=== PATIENT | female | born 1950 | race Caucasian/White ===

== ENCOUNTER 2017-09-18 20:07 | Inpatient (IN) | payer MEDICARE, OTHER ==
--- NOTE | 2017-09-18 20:21 | ED Physician Chart ---
ED Chief Complaint/HPI - Patient Information Date Seen:: 09/18/17 Time Seen:: 20:21 Chief Complaint:: Increased agitation History of Present Illness:: 67 yo female was brought from SNF to ER for evaluation of increased agitation. ED Review of Systems - Review of Systems General/Constitutional: No fever, Weakness Skin: No bruising Eyes: No pain ENT: No nasal drainage Neck: No neck pain Cardio Vascular: No chest pain, edema Pulmonary: No SOB, Sputum GI: No nausea, No vomiting Musculoskeletal: No bone or joint pain Psychiatric: Prior psych history Neurological: Weakness ED Past Medical History - Past Medical History Past Medical History: Asthma/COPD, Dyslipidemia, Thyroid disorder, Other ( ENCEPHALOPATHY, VERTIGO, STROKE) Social History: Smoker, Alcohol, No Drug Use Psychiatricy History: Bipolar Family Medical History - Family Member Mother History Unknown: Yes ED Physical Exam - Physical Examination General/Constitutional: Awake Head: Atraumatic Eyes: PERRL Skin: No ecchymosis ENMT: Nasal exam nl Neck: No nuchal rigidity Other Respiratory comments:: diminished lung sound Cardio Vascular: RRR, No murmur, gallop, rubs, NL S1 S2 GI: No tenderness/rebounding/guarding Extremities: Full ROM Other Extremities comments:: 2+ edema BLE Neuro/Psych: Alert/oriented (x 3) ED Labs/Radiology/EKG Results - Lab Results Results: Lab - Result Diagrams 09/18/17 20:50 09/18/17 20:50 - Radiology Results Results: CXR: increased interstitial markings, cardiomegaly - EKG Interpretations EKG Time:: 20:35 Rate & Rhythm: 86 bpm, sinus rhythm [place]: Normal axis Intervals: Normal intervals ED Assessment - Assessment General Assessment: Bronchitis COPD Hypertension CHF Psychosis Assessment/Comments:: CBC, CMP, BNP, Trop I UA, urine drug screen CXR, EKG Cleared for geropsych admission ED Septic Shock - . Is Septic Shock (SBP<90, OR Lactate>4 mmol\L) present?: No ED Reassessment (Disposition) - Reassessment Reassessment Condition:: Unchanged - Patient Disposition Discharge/Transfer:: Geropsych unit w/in this hosp Admitting Medical Physician:: Izaiah Navarrete Admitting Psych Physician:: Ravin Wayne ED Discharge Plan - Patient Disposition Admit/Discharge/Transfer: Other Care w/in this hosp
[2017-09-18 20:59] LABS: % BASOPHILS 0.3 % (0.0-2.0); % EOSINOPHILS 1.6 % (0.0-5.0); % LYMPHOCYTES 9.5 % (20.0-50.0); % MONOCYTES 9.3 % (2.0-10.0); % NEUTROPHILS 79.3 % (40.0-80.0); EOSINOPHILE ABSOLUTE 0.1 Th/cmm (0.1-0.4); HEMATOCRIT 38.8 % (41.0-60); HEMOGLOBIN 13.2 gm/dL (12-16); LYMPHOCYTE ABSOLUTE 0.7 Th/cmm (1.5-3.0); MEAN CORPUSCULAR HEMOGLOBIN 30.9 pg (27.0-31.0); MEAN CORPUSCULAR HGB CONC 33.9 pg (28.0-36.0); MEAN PLATELET VOLUME 7.5 fl; MONOCYTE ABSOLUTE 0.7 Th/cmm (0.3-1.0); NEUTROPHILE ABSOLUTE 6.1 Th/cmm (1.8-8.0); PLATELET COUNT 125 Th/cmm (150-400); RED BLOOD COUNT 4.26 Mil/cmm (3.80-5.20); RED CELL DISTRIBUTION WIDTH 16.5 % (11.5-20.0); WHITE BLOOD COUNT 7.6 Th/cmm (4.8-10.8)
[2017-09-18 21:13] LABS: ALB/GLOB RATIO 1.1 (1.0-1.8); ALBUMIN 2.7 gm/dL (3.7-5.3); ALKALINE PHOSPHATASE 123 U/L (34-104); BILIRUBIN,TOTAL 0.7 mg/dL (0.3-1.0); BUN - UREA NITROGEN 14 mg/dL (7-25); CALCIUM SERUM 8.4 mg/dL (8.6-10.3); CARBON DIOXIDE 36.5 mEq/L (21.0-31.0); CHLORIDE 98 mEq/L (98-107); GFR AFRICAN-AMERICAN > 60.0 ml/min (>90); GFR NON AFRICAN-AMERICAN 58.8 ml/min; GLUCOSE 174 mg/dL (70-105); POTASSIUM SERUM 3.5 mEq/L (3.5-5.1); SGOT 28 U/L (13-39); SGPT/ALT 26 U/L (7-52); SODIUM SERUM 140 mEq/L (136-145); TOTAL PROTEIN,SERUM 5.1 gm/dL (6.0-8.3)
[2017-09-18 22:53] VITALS: BP 147/70
[2017-09-19] MEDS ORDERED: Non-Formulary Item 1 EA (Gabapentin [Neurontin] 600 MG) PO SCH (05:00)
[2017-09-19] MEDS: Levothyroxine 0.05 Mg Tab PO SCH (06:56)
--- NOTE | 2017-09-19 07:54 | Diagnostic Imaging Report ---
CHEST X-RAY: AP view INDICATION: Shortness of breath COMPARISON: None FINDINGS: Patient is rotated. Increased interstitial lung markings are noted. No focal consolidation or effusions. Cardiomegaly is noted with atherosclerosis. Degenerative changes of the spine are noted. IMPRESSION: Increased interstitial lung markings possibly representing a mild degree of pulmonary vascular congestion. Note, faint developing infiltrate of the upper lung zones cannot be excluded. Clinical correlation recommended. Cardiomegaly and atherosclerotic vascular disease.
[2017-09-19] MEDS ORDERED: Non-Formulary Item 1 EA (Lamotrigine [Lamotrigine] 200 MG) PO SCH (09:00)
[2017-09-19] MEDS ORDERED: BUSPIRONE HCL 20 MG PO SCH (09:00)
[2017-09-19] MEDS ORDERED: PREDNISONE 15 MG PO SCH (09:00)
[2017-09-19] MEDS ORDERED: Probiotic Screen MC PRN (10:22)
--- NOTE | 2017-09-19 15:25 | History & Physical ---
ADMIT DATE: 09/19/2017 CHIEF COMPLAINT: Admitted to inpatient psych. HISTORY OF PRESENT ILLNESS: This is a 67-year-old patient female with history of COPD, stroke, hypertension, hypothyroidism, recent diagnosis of bronchitis on doxycycline as well as Keflex, multiple bruises, under the service of Dr. Wayne. The patient is a poor historian. Denies chest pain, shortness of breath. PAST MEDICAL HISTORY: As mentioned in history of present illness. PAST SURGICAL HISTORY: Denies. ALLERGIES: AMOXICILLIN. MEDICATIONS: Prednisone, BuSpar, Keflex, Celexa, ____, Cymbalta, Neurontin, Lamictal, Synthroid, Cozaar, Seroquel. FAMILY HISTORY: Noncontributory. SOCIAL HISTORY: The patient is an avid smoker, drinks on occasion. No intravenous drug use. 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 REVIEW OF SYSTEMS: GENERAL: The patient complains not feeling well. HEENT: No blurred vision or eye pain. LUNGS: Asthma and the patient with chronic obstructive pulmonary disease. HEART: The patient has history of coronary artery disease. ABDOMEN: No nausea, vomiting, pain. GENITOURINARY: The patient denies increased frequency or dysuria. NEUROLOGIC: The patient with history of TIA, stroke. PSYCHIATRIC: As stated above. PHYSICAL EXAMINATION: VITAL SIGNS: Blood pressure 130/73, respiration 18, pulse 85, temperature 98.7. GENERAL: Elderly female, appears chronically ill, mildly obese. NECK: Supple. No mass. LUNGS: Equal breath sounds, few rhonchi. HEART: Regular rate and rhythm. Systolic ejection murmur. ABDOMEN: Soft, globular, positive bowel sounds. EXTREMITIES: Positive excoriation. NEUROLOGIC: Limited. LABORATORY DATA: WBC 7.6, hemoglobin 13, platelets 125. Sodium 140, potassium 3.5, BUN 44, creatinine 1.0, glucose 174, alkaline phosphatase 123, albumin 2.7. ASSESSMENT AND PLAN: 1. Chronic obstructive pulmonary disease. 2. History of bronchitis. 3. History of stroke. 4. Hypertension. 5. Hypothyroidism. 6. Right hand abrasion. 7. Bilateral upper extremity ecchymosis. 8. Hyperglycemia. 9. Low albumin. 10. Obesity. PLAN: We will continue the patient on oxygen and bronchodilator treatment. We will check the patient's A1c. We will check the PT, PTT. We will refer the patient to Hematology. Continue IV antibiotic. Continue oxygen and bronchodilator treatment. Continue current care. Continue to follow the patient closely. JOB# [id number]
[2017-09-19] MEDS: Albuterol Nebulizer 2.5mg/3mL HHN SCH ×2 (15:26→19:22)
[2017-09-19] MEDS: Ipratropium Neb 0.5 mg/2.5 mL UD IH SCH ×2 (15:26→19:22)
--- NOTE | 2017-09-19 18:46 | Consultation ---
DATE OF CONSULTATION: 09/19/2017 HEMATOLOGY/ONCOLOGY CONSULTATION REFERRING BY: Izaiah Navarrete D.O. REASON FOR CONSULTATION: Bruising on the arms. HISTORY OF PRESENT ILLNESS: The patient is a 67-year-old female who is [facility] and found to have bruising on both of her forearms, more on the left than the right, therefore I was asked to evaluate. PAST MEDICAL HISTORY: COPD, hypertension, hypothyroidism. MEDICATIONS: Reviewed. They do not include anticoagulation or nonsteroidal or aspirin. SOCIAL HISTORY: Smoking history. FAMILY HISTORY: Noncontributory. PHYSICAL EXAMINATION: GENERAL: She is awake, alert, oriented, pleasant. VITAL SIGNS: Stable. HEENT: Atraumatic. No mucosal lesions or bleeding. NECK: No lymphadenopathy. CHEST: Good air entry. HEART: Regular rhythm. ABDOMEN: Soft. EXTREMITIES: Ecchymosis on both forearms more on the left than the right. No active bleeding. NERVOUS SYSTEM: No focal deficits. LABORATORY DATA: White count 7.6, hemoglobin 13.2, platelets 125, creatinine 1, AST, ALT are normal. Alkaline phosphatase slightly elevated. Albumin 2.7. ASSESSMENT: Ecchymosis on both forearms and no ecchymosis on the other parts of the body. This is most consistent with traumatic ecchymosis. I will follow the coagulation panel including PT, PTT and fibrinogen. I will also obtain platelet functions to evaluate if the patient is having any platelet dysfunction increasing her risk for bleeding. The patient stated she never had a similar problem in the past and she did not have any history of spontaneous bleeding in the past. Thank you, Dr. Navarrete for the opportunity to participate in the care of this interesting case. JOB# [id number]
[2017-09-19 19:54] LABS: A1C % 5.8 % (4.0-6.0)
--- NOTE | 2017-09-20 00:22 | Psychosocial Evaluation ---
DATE OF SERVICE: 09/18/2017 IDENTIFYING DATA: The patient is a 67-year-old male, resident of [facility]. Information obtained directly interviewing the patient as well as reviewing the admission papers. JUSTIFICATION FOR HOSPITALIZATION: The patient is admitted here on a voluntary basis in view of her acute agitation. CHIEF COMPLAINT: "I don't know why they have to bring me in here." HISTORY OF PRESENT ILLNESS: This is the first psychiatric hospitalization to [facility] for this patient, who is reported to have been very aggressive. The patient denies a history of multiple medical problems and the patient is reported to have been screaming and yelling and she has pain and has to be admitted over here for stabilization. PAST PSYCHIATRIC HISTORY: Details are not known. MEDICAL HISTORY: Physical examination is requested by Dr. Navarrete and is noted to be significant for COPD, stroke, hypertension, and hypothyroidism. SOCIAL HISTORY: The patient is a resident of the [facility]. SUBSTANCE ABUSE HISTORY: None. PHYSICAL OR SEXUAL ABUSE HISTORY: None. LEGAL PROBLEMS: None at this time. 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 MENTAL STATUS EXAMINATION: The patient is a 67-year-old woman looking her stated age, superficially cooperative. Eye contact is fair. Mood is irritable. Affect is constricted. The patient is finding it difficult to give the information, the patient is stating that she cannot feel it out why she has to be in here. Insight and judgment at this time are noted to be impaired. Impulse control seems to be limited. The patient is reported to have been screaming and yelling. Review of the indicate chart indicated the patient has been on 20 mg of citalopram and also on 60 mg twice a day of duloxetine and taken to 100 mg of Seroquel at night time. Even with all the medication, the patient has been having difficult time to cope with. The patient has been getting easily frustrated. The patient is denying any command hallucinations at this time, but mild paranoia is noted. The patient's short and long-term are noted to be intact and the patient has been able to verbalize the concerns. The patient is stating that she has been feeling very tired and the patient is stating that she has been feeling frustrated after coming in here. The patient's coping skills are noted to be poor. The patient is alert and oriented x 3. DIAGNOSTIC IMPRESSION: Bipolar disorder, depressed with anxiety symptoms. PLAN: Continue the patient with the current medications. I encouraged the patient to verbalize the concerns that the Celexa is going to be discontinued and the patient is going to be continued with the duloxetine and Lamictal and followed up with the supportive therapy. ESTIMATED LENGTH OF STAY: 5-6 days. DISCHARGE CRITERIA: When she no longer a threat to self or others and be able to cope up with the stress. JOB# [id number]
[2017-09-20] MEDS: Levothyroxine 0.05 Mg Tab PO SCH (06:30)
[2017-09-20] MEDS: Albuterol Nebulizer 2.5mg/3mL HHN SCH ×4 (06:53→19:13)
[2017-09-20] MEDS: Ipratropium Neb 0.5 mg/2.5 mL UD IH SCH ×4 (06:53→19:13)
[2017-09-20 11:10] LABS: INR 1.09 (0.5-1.4); PROTHROMBIN TIME (TEST) 11.4 SECONDS (9.5-11.5)
--- NOTE | 2017-09-20 15:38 | General Progress Note ---
Subjective - Review of Systems Service Date: 09/20/17 Objective - Results Result Diagrams: 09/18/17 20:50 09/18/17 20:50 Recent Labs: Laboratory Last Values WBC 7.6 Th/cmm (4.8-10.8) 09/18/17 20:50 RBC 4.26 Mil/cmm (3.80-5.20) 09/18/17 20:50 Hgb 13.2 gm/dL (12-16) 09/18/17 20:50 Hct 38.8 % (41.0-60) L 09/18/17 20:50 MCV 91.0 fl (81-100) 09/18/17 20:50 MCH 30.9 pg (27.0-31.0) 09/18/17 20:50 MCHC Differential 33.9 pg (28.0-36.0) 09/18/17 20:50 RDW 16.5 % (11.5-20.0) 09/18/17 20:50 Plt Count 125 Th/cmm (150-400) L 09/18/17 20:50 MPV 7.5 fl 09/18/17 20:50 Neutrophils % 79.3 % (40.0-80.0) 09/18/17 20:50 Lymphocytes % 9.5 % (20.0-50.0) L 09/18/17 20:50 Monocytes % 9.3 % (2.0-10.0) 09/18/17 20:50 Eosinophils % 1.6 % (0.0-5.0) 09/18/17 20:50 Basophils % 0.3 % (0.0-2.0) 09/18/17 20:50 PT 11.4 SECONDS (9.5-11.5) 09/20/17 09:10 INR 1.09 (0.5-1.4) 09/20/17 09:10 PTT (Actin FS) 22.5 SECONDS (26.0-38.0) L 09/20/17 09:10 Fibrinogen 215.0 mg/dL (200.0-400.0) 09/20/17 09:10 Plt Function Studies SEE COMMENT 09/20/17 09:10 Sodium 140 mEq/L (136-145) 09/18/17 20:50 Potassium 3.5 mEq/L (3.5-5.1) 09/18/17 20:50 Chloride 98 mEq/L (98-107) 09/18/17 20:50 Carbon Dioxide 36.5 mEq/L (21.0-31.0) H 09/18/17 20:50 Anion Gap 9.0 (7.0-16.0) 09/18/17 20:50 BUN 14 mg/dL (7-25) 09/18/17 20:50 Creatinine 1.0 mg/dL (0.6-1.2) 09/18/17 20:50 Est GFR ( Amer) > 60.0 ml/min (>90) 09/18/17 20:50 Est GFR (Non-Af Amer) 58.8 ml/min 09/18/17 20:50 BUN/Creatinine Ratio 14.0 09/18/17 20:50 Glucose 174 mg/dL (70-105) H 09/18/17 20:50 Hemoglobin A1c % 5.8 % (4.0-6.0) 09/18/17 20:50 Calcium 8.4 mg/dL (8.6-10.3) L 09/18/17 20:50 Magnesium 2.0 mg/dL (1.9-2.7) 09/18/17 20:50 Total Bilirubin 0.7 mg/dL (0.3-1.0) 09/18/17 20:50 AST 28 U/L (13-39) 09/18/17 20:50 ALT 26 U/L (7-52) 09/18/17 20:50 Alkaline Phosphatase 123 U/L (34-104) H 09/18/17 20:50 Troponin I 0.04 ng/mL (0.01-0.05) 09/18/17 20:50 B-Natriuretic Peptide 31.5 pg/mL (5.0-100.0) 09/18/17 20:50 Total Protein 5.1 gm/dL (6.0-8.3) L 09/18/17 20:50 Albumin 2.7 gm/dL (3.7-5.3) L 09/18/17 20:50 Globulin 2.4 gm/dL 09/18/17 20:50 Albumin/Globulin Ratio 1.1 (1.0-1.8) 09/18/17 20:50 - Physical Exam Vitals and I&O: Vital Signs Temp 96.1 F 09/20/17 14:00 Pulse 88 09/20/17 14:06 Resp 18 09/20/17 14:06 BP 144/71 09/20/17 14:00 Pulse Ox 96 09/20/17 14:06 Active Medications: Current Medications Acetaminophen (Tylenol) 650 mg PO Q4HR PRN PRN Reason: Mild Pain / Temp above 100 Stop: 11/17/17 22:57 Albuterol Sulfate (Albuterol 2.5mg/3ml Neb Ud) 2.5 mg HHN QIDRT [facility] Stop: 11/18/17 14:59 Last Admin: 09/20/17 14:06 Dose: 2.5 mg Buspirone HCl (Buspar) 20 mg PO TID [facility]; Protocol Stop: 11/18/17 08:59 Last Admin: 09/20/17 14:07 Dose: 20 mg Duloxetine HCl (Cymbalta) 60 mg PO BID [facility]; Protocol Stop: 11/18/17 08:59 Last Admin: 09/20/17 09:55 Dose: 60 mg Famotidine (Pepcid) 20 mg PO BID [facility] Stop: 11/18/17 08:59 Last Admin: 09/20/17 09:56 Dose: 20 mg Gabapentin (Neurontin) 600 mg PO Q8H [facility] Stop: 11/18/17 05:59 Last Admin: 09/20/17 14:12 Dose: 600 mg Ipratropium [place] (Atrovent Neb 0.5mg/2.5ml) 0.5 mg IH QIDRT [facility] Stop: 11/18/17 14:59 Last Admin: 09/20/17 14:06 Dose: 0.5 mg Lamotrigine (Lamictal) 200 mg PO BID [facility]; Protocol Stop: 11/18/17 08:59 Last Admin: 09/20/17 09:55 Dose: 200 mg Levofloxacin (Levaquin) 500 mg PO DAILY [facility] Stop: 09/27/17 08:59 Last Admin: 09/20/17 09:56 Dose: 500 mg Levothyroxine Sodium (Synthroid) 0.05 mg PO QDAC [facility] Stop: 11/18/17 07:29 Last Admin: 09/20/17 06:30 Dose: 0.05 mg Lorazepam (Ativan) 0.5 mg PO Q4HR PRN; Protocol PRN Reason: Anxiety Stop: 10/18/17 22:57 Last Admin: 09/20/17 14:08 Dose: 0.5 mg Losartan Potassium (Cozaar) 25 mg PO DAILY [facility] Stop: 11/18/17 08:59 Last Admin: 09/20/17 09:56 Dose: 25 mg Miscellaneous (Probiotic Screen) 1 ea MC PRN PRN PRN Reason: PROTOCOL Stop: 11/18/17 10:21 Prednisone (Deltasone) 15 mg PO DAILY [facility] Stop: 11/18/17 08:59 Last Admin: 09/20/17 09:57 Dose: 15 mg Quetiapine Fumarate (Seroquel) 100 mg PO HS [facility]; Protocol Stop: 11/18/17 20:59 Last Admin: 09/19/17 21:09 Dose: 100 mg Zolpidem Tartrate (Ambien) 5 mg PO HS PRN PRN Reason: Insomnia Stop: 11/17/17 22:57 General: Alert HEENT: Atraumatic Neck: Supple Cardiovascular: Regular rate Lungs: Clear to auscultation Abdomen: Bowel sounds Psych/Mental Status: Other (ecchymoses on both forearms) Assessment/Plan - Assessment Assessment: * Ecchymoses on upper extremeties forearms * Mild thrombocytopenia This is likely traumatic normal coag and plt function follow plt count
--- NOTE | 2017-09-20 15:58 | Internal Medicine Prog Note ---
Internal Medicine Subjective - Subjective Service Date: 09/20/17 Patient seen and examined:: with staff Patient is:: awake Per staff patient has:: tolerating meds Internal Medicine Objective - Results Result Diagrams: 09/18/17 20:50 09/18/17 20:50 Recent Labs: Laboratory Last Values WBC 7.6 Th/cmm (4.8-10.8) 09/18/17 20:50 RBC 4.26 Mil/cmm (3.80-5.20) 09/18/17 20:50 Hgb 13.2 gm/dL (12-16) 09/18/17 20:50 Hct 38.8 % (41.0-60) L 09/18/17 20:50 MCV 91.0 fl (81-100) 09/18/17 20:50 MCH 30.9 pg (27.0-31.0) 09/18/17 20:50 MCHC Differential 33.9 pg (28.0-36.0) 09/18/17 20:50 RDW 16.5 % (11.5-20.0) 09/18/17 20:50 Plt Count 125 Th/cmm (150-400) L 09/18/17 20:50 MPV 7.5 fl 09/18/17 20:50 Neutrophils % 79.3 % (40.0-80.0) 09/18/17 20:50 Lymphocytes % 9.5 % (20.0-50.0) L 09/18/17 20:50 Monocytes % 9.3 % (2.0-10.0) 09/18/17 20:50 Eosinophils % 1.6 % (0.0-5.0) 09/18/17 20:50 Basophils % 0.3 % (0.0-2.0) 09/18/17 20:50 PT 11.4 SECONDS (9.5-11.5) 09/20/17 09:10 INR 1.09 (0.5-1.4) 09/20/17 09:10 PTT (Actin FS) 22.5 SECONDS (26.0-38.0) L 09/20/17 09:10 Fibrinogen 215.0 mg/dL (200.0-400.0) 09/20/17 09:10 Plt Function Studies SEE COMMENT 09/20/17 09:10 Sodium 140 mEq/L (136-145) 09/18/17 20:50 Potassium 3.5 mEq/L (3.5-5.1) 09/18/17 20:50 Chloride 98 mEq/L (98-107) 09/18/17 20:50 Carbon Dioxide 36.5 mEq/L (21.0-31.0) H 09/18/17 20:50 Anion Gap 9.0 (7.0-16.0) 09/18/17 20:50 BUN 14 mg/dL (7-25) 09/18/17 20:50 Creatinine 1.0 mg/dL (0.6-1.2) 09/18/17 20:50 Est GFR ( Amer) > 60.0 ml/min (>90) 09/18/17 20:50 Est GFR (Non-Af Amer) 58.8 ml/min 09/18/17 20:50 BUN/Creatinine Ratio 14.0 09/18/17 20:50 Glucose 174 mg/dL (70-105) H 09/18/17 20:50 Hemoglobin A1c % 5.8 % (4.0-6.0) 09/18/17 20:50 Calcium 8.4 mg/dL (8.6-10.3) L 09/18/17 20:50 Magnesium 2.0 mg/dL (1.9-2.7) 09/18/17 20:50 Total Bilirubin 0.7 mg/dL (0.3-1.0) 09/18/17 20:50 AST 28 U/L (13-39) 09/18/17 20:50 ALT 26 U/L (7-52) 09/18/17 20:50 Alkaline Phosphatase 123 U/L (34-104) H 09/18/17 20:50 Troponin I 0.04 ng/mL (0.01-0.05) 09/18/17 20:50 B-Natriuretic Peptide 31.5 pg/mL (5.0-100.0) 09/18/17 20:50 Total Protein 5.1 gm/dL (6.0-8.3) L 09/18/17 20:50 Albumin 2.7 gm/dL (3.7-5.3) L 09/18/17 20:50 Globulin 2.4 gm/dL 09/18/17 20:50 Albumin/Globulin Ratio 1.1 (1.0-1.8) 09/18/17 20:50 - Physical Exam Vitals and I&O: Vital Signs Temp 96.1 F 09/20/17 14:00 Pulse 88 09/20/17 14:06 Resp 18 09/20/17 14:06 BP 144/71 09/20/17 14:00 Pulse Ox 96 09/20/17 14:06 Active Medications: Current Medications Acetaminophen (Tylenol) 650 mg PO Q4HR PRN PRN Reason: Mild Pain / Temp above 100 Stop: 11/17/17 22:57 Albuterol Sulfate (Albuterol 2.5mg/3ml Neb Ud) 2.5 mg HHN QIDRT [facility] Stop: 11/18/17 14:59 Last Admin: 09/20/17 14:06 Dose: 2.5 mg Buspirone HCl (Buspar) 20 mg PO TID [facility]; Protocol Stop: 11/18/17 08:59 Last Admin: 09/20/17 14:07 Dose: 20 mg Duloxetine HCl (Cymbalta) 60 mg PO BID [facility]; Protocol Stop: 11/18/17 08:59 Last Admin: 09/20/17 09:55 Dose: 60 mg Famotidine (Pepcid) 20 mg PO BID [facility] Stop: 11/18/17 08:59 Last Admin: 09/20/17 09:56 Dose: 20 mg Gabapentin (Neurontin) 600 mg PO Q8H [facility] Stop: 11/18/17 05:59 Last Admin: 09/20/17 14:12 Dose: 600 mg Ipratropium [place] (Atrovent Neb 0.5mg/2.5ml) 0.5 mg IH QIDRT [facility] Stop: 11/18/17 14:59 Last Admin: 09/20/17 14:06 Dose: 0.5 mg Lamotrigine (Lamictal) 200 mg PO BID [facility]; Protocol Stop: 11/18/17 08:59 Last Admin: 09/20/17 09:55 Dose: 200 mg Levofloxacin (Levaquin) 500 mg PO DAILY [facility] Stop: 09/27/17 08:59 Last Admin: 09/20/17 09:56 Dose: 500 mg Levothyroxine Sodium (Synthroid) 0.05 mg PO QDAC [facility] Stop: 11/18/17 07:29 Last Admin: 09/20/17 06:30 Dose: 0.05 mg Lorazepam (Ativan) 0.5 mg PO Q4HR PRN; Protocol PRN Reason: Anxiety Stop: 10/18/17 22:57 Last Admin: 09/20/17 14:08 Dose: 0.5 mg Losartan Potassium (Cozaar) 25 mg PO DAILY [facility] Stop: 11/18/17 08:59 Last Admin: 09/20/17 09:56 Dose: 25 mg Miscellaneous (Probiotic Screen) 1 ea MC PRN PRN PRN Reason: PROTOCOL Stop: 11/18/17 10:21 Prednisone (Deltasone) 15 mg PO DAILY [facility] Stop: 11/18/17 08:59 Last Admin: 09/20/17 09:57 Dose: 15 mg Quetiapine Fumarate (Seroquel) 100 mg PO HS [facility]; Protocol Stop: 11/18/17 20:59 Last Admin: 09/19/17 21:09 Dose: 100 mg Zolpidem Tartrate (Ambien) 5 mg PO HS PRN PRN Reason: Insomnia Stop: 11/17/17 22:57 General: alert HEENT: NC/AT, PERRLA Neck: Supple Lungs: CTAB Cardiovascular: RRR, Normal S1, Normal S2 Abdomen: soft, non-tender, non-distended Neurological: no change Internal Medicine Assmt/Plan - Assessment Assessment: copd htn hypothyroidism right hand abrasion hyperglycemia low albumin obesity - Plan Plan: supplemental oxygen as needed bronchodilators as needed monitor glucose continue current plan of care
--- NOTE | 2017-09-21 03:27 | Progress Notes ---
DATE: 09/20/2017 SUBJECTIVE: Staff was spoken to. The patient is interviewed. Mood is a bit depressed. Affect is constricted. Insight and judgment at this time are noted to be still impaired. Impulse control is noted to be limited. Coping skills are noted to be limited. The patient has been getting easily frustrated. No side effects to the medications are noted, but the patient has been complaining that she is feeling too dizzy at this time and hence the BuSpar is going to be decreased from 20 mg 3 times a day to 20 mg 2 times a day and the patient is going to be followed up with the supportive therapy. ASSESSMENT: The patient is still depressed and is not able to contract for safety and hence I am not ready to discharge the patient to a lower level of care. JOB# [id number]
[2017-09-21] MEDS: Levothyroxine 0.05 Mg Tab PO SCH (06:34)
[2017-09-21] MEDS: Ipratropium Neb 0.5 mg/2.5 mL UD IH SCH ×4 (07:20→18:58)
[2017-09-21] MEDS: Albuterol Nebulizer 2.5mg/3mL HHN SCH ×4 (07:20→18:58)
[2017-09-21 09:05] LABS: % BASOPHILS 0.6 % (0.0-2.0); % LYMPHOCYTES 13.3 % (20.0-50.0); % MONOCYTES 9.7 % (2.0-10.0); % NEUTROPHILS 74.4 % (40.0-80.0); EOSINOPHILE ABSOLUTE 0.1 Th/cmm (0.1-0.4); HEMOGLOBIN 12.8 gm/dL (12-16); LYMPHOCYTE ABSOLUTE 0.8 Th/cmm (1.5-3.0); MEAN CORPUSCULAR HGB CONC 33.7 pg (28.0-36.0); MEAN PLATELET VOLUME 7.5 fl; MONOCYTE ABSOLUTE 0.6 Th/cmm (0.3-1.0); NEUTROPHILE ABSOLUTE 4.7 Th/cmm (1.8-8.0); PLATELET COUNT 135 Th/cmm (150-400); RED BLOOD COUNT 4.13 Mil/cmm (3.80-5.20); RED CELL DISTRIBUTION WIDTH 16.9 % (11.5-20.0); WHITE BLOOD COUNT 6.2 Th/cmm (4.8-10.8)
--- NOTE | 2017-09-21 14:12 | Internal Medicine Prog Note ---
Internal Medicine Subjective - Subjective Service Date: 09/21/17 (patient c/o unable to expectorate phlegm. right lower ext noted with +3 edema) Patient is:: awake Patient Complaints of:: congestion Per staff patient has:: tolerating meds Internal Medicine Objective - Results Result Diagrams: 09/21/17 08:50 09/18/17 20:50 Recent Labs: Laboratory Last Values WBC 6.2 Th/cmm (4.8-10.8) 09/21/17 08:50 RBC 4.13 Mil/cmm (3.80-5.20) 09/21/17 08:50 Hgb 12.8 gm/dL (12-16) 09/21/17 08:50 Hct 38.0 % (41.0-60) L 09/21/17 08:50 MCV 92.0 fl (81-100) 09/21/17 08:50 MCH 31.0 pg (27.0-31.0) 09/21/17 08:50 MCHC Differential 33.7 pg (28.0-36.0) 09/21/17 08:50 RDW 16.9 % (11.5-20.0) 09/21/17 08:50 Plt Count 135 Th/cmm (150-400) L 09/21/17 08:50 MPV 7.5 fl 09/21/17 08:50 Neutrophils % 74.4 % (40.0-80.0) 09/21/17 08:50 Lymphocytes % 13.3 % (20.0-50.0) L 09/21/17 08:50 Monocytes % 9.7 % (2.0-10.0) 09/21/17 08:50 Eosinophils % 2.0 % (0.0-5.0) 09/21/17 08:50 Basophils % 0.6 % (0.0-2.0) 09/21/17 08:50 PT 11.4 SECONDS (9.5-11.5) 09/20/17 09:10 INR 1.09 (0.5-1.4) 09/20/17 09:10 PTT (Actin FS) 22.5 SECONDS (26.0-38.0) L 09/20/17 09:10 Fibrinogen 215.0 mg/dL (200.0-400.0) 09/20/17 09:10 Plt Function Studies SEE COMMENT 09/20/17 09:10 Sodium 140 mEq/L (136-145) 09/18/17 20:50 Potassium 3.5 mEq/L (3.5-5.1) 09/18/17 20:50 Chloride 98 mEq/L (98-107) 09/18/17 20:50 Carbon Dioxide 36.5 mEq/L (21.0-31.0) H 09/18/17 20:50 Anion Gap 9.0 (7.0-16.0) 09/18/17 20:50 BUN 14 mg/dL (7-25) 09/18/17 20:50 Creatinine 1.0 mg/dL (0.6-1.2) 09/18/17 20:50 Est GFR ( Amer) > 60.0 ml/min (>90) 09/18/17 20:50 Est GFR (Non-Af Amer) 58.8 ml/min 09/18/17 20:50 BUN/Creatinine Ratio 14.0 09/18/17 20:50 Glucose 174 mg/dL (70-105) H 09/18/17 20:50 Hemoglobin A1c % 5.8 % (4.0-6.0) 09/18/17 20:50 Calcium 8.4 mg/dL (8.6-10.3) L 09/18/17 20:50 Magnesium 2.0 mg/dL (1.9-2.7) 09/18/17 20:50 Total Bilirubin 0.7 mg/dL (0.3-1.0) 09/18/17 20:50 AST 28 U/L (13-39) 09/18/17 20:50 ALT 26 U/L (7-52) 09/18/17 20:50 Alkaline Phosphatase 123 U/L (34-104) H 09/18/17 20:50 Troponin I 0.04 ng/mL (0.01-0.05) 09/18/17 20:50 B-Natriuretic Peptide 31.5 pg/mL (5.0-100.0) 09/18/17 20:50 Total Protein 5.1 gm/dL (6.0-8.3) L 09/18/17 20:50 Albumin 2.7 gm/dL (3.7-5.3) L 09/18/17 20:50 Globulin 2.4 gm/dL 09/18/17 20:50 Albumin/Globulin Ratio 1.1 (1.0-1.8) 09/18/17 20:50 RPR NONREACTIVE (NONREACTIVE) 09/18/17 20:50 - Physical Exam Vitals and I&O: Vital Signs Temp 96.1 F 09/20/17 14:00 Pulse 90 09/21/17 10:32 Resp 18 09/21/17 10:32 BP 124/60 09/21/17 09:11 Pulse Ox 96 09/21/17 10:32 Intake & Output 09/20/17 09/21/17 09/21/17 18:59 06:59 18:59 Intake Total 1600 Balance 1600 Intake: Oral 1600 Other: # Voids 4 # Bowel Movements 1 Active Medications: Current Medications Acetaminophen (Tylenol) 650 mg PO Q4HR PRN PRN Reason: Mild Pain / Temp above 100 Stop: 11/17/17 22:57 Albuterol Sulfate (Albuterol 2.5mg/3ml Neb Ud) 2.5 mg HHN QIDRT [facility] Stop: 11/18/17 14:59 Last Admin: 09/21/17 10:32 Dose: 2.5 mg Buspirone HCl (Buspar) 20 mg PO BID [facility]; Protocol Stop: 11/20/17 08:59 Last Admin: 09/21/17 09:27 Dose: Not Given Duloxetine HCl (Cymbalta) 60 mg PO BID [facility]; Protocol Stop: 11/18/17 08:59 Last Admin: 09/21/17 09:10 Dose: 60 mg Famotidine (Pepcid) 20 mg PO BID [facility] Stop: 11/18/17 08:59 Last Admin: 09/21/17 09:11 Dose: 20 mg Gabapentin (Neurontin) 600 mg PO Q8H [facility] Stop: 11/18/17 05:59 Last Admin: 09/21/17 06:36 Dose: 600 mg Ipratropium [place] (Atrovent Neb 0.5mg/2.5ml) 0.5 mg IH QIDRT [facility] Stop: 11/18/17 14:59 Last Admin: 09/21/17 10:32 Dose: 0.5 mg Lamotrigine (Lamictal) 200 mg PO BID [facility]; Protocol Stop: 11/18/17 08:59 Last Admin: 09/21/17 09:10 Dose: 200 mg Levofloxacin (Levaquin) 500 mg PO DAILY [facility] Stop: 09/27/17 08:59 Last Admin: 09/21/17 09:11 Dose: 500 mg Levothyroxine Sodium (Synthroid) 0.05 mg PO QDAC [facility] Stop: 11/18/17 07:29 Last Admin: 09/21/17 06:34 Dose: 0.05 mg Lorazepam (Ativan) 0.5 mg PO Q4HR PRN; Protocol PRN Reason: Anxiety Stop: 10/18/17 22:57 Last Admin: 09/21/17 04:08 Dose: 0.5 mg Losartan Potassium (Cozaar) 25 mg PO DAILY [facility] Stop: 11/18/17 08:59 Last Admin: 09/21/17 09:11 Dose: Not Given Miscellaneous (Probiotic Screen) 1 ea MC PRN PRN PRN Reason: PROTOCOL Stop: 11/18/17 10:21 Prednisone (Deltasone) 15 mg PO DAILY [facility] Stop: 11/18/17 08:59 Last Admin: 09/21/17 09:10 Dose: 15 mg Quetiapine Fumarate (Seroquel) 100 mg PO HS [facility]; Protocol Stop: 11/18/17 20:59 Last Admin: 09/20/17 20:41 Dose: 100 mg Zolpidem Tartrate (Ambien) 5 mg PO HS PRN PRN Reason: Insomnia Stop: 11/17/17 22:57 Last Admin: 09/20/17 20:41 Dose: 5 mg General: alert HEENT: NC/AT, PERRLA Neck: Supple Lungs: ronchi Cardiovascular: RRR, Normal S1, Normal S2 Abdomen: soft, non-tender, non-distended Neurological: no change Internal Medicine Assmt/Plan - Assessment Assessment: copd htn hypothyroidism right hand abrasion hyperglycemia low albumin obesity - Plan Plan: will add prednisone lasix x1 po bilateral lower ext doppler chest xray today supplemental oxygen as needed bronchodilators as needed monitor glucose continue current plan of care
--- NOTE | 2017-09-21 14:36 | Diagnostic Imaging Report ---
CHEST X-RAY: AP view INDICATION: Pneumonia COMPARISON: Chest x-ray 09/09/2018 FINDINGS: Bilateral interstitial infiltrates are noted. No effusions. Cardiomegaly is noted atherosclerosis. Degenerative changes of the spine are noted. IMPRESSION: Bilateral interstitial infiltrates. Clinical correlation is recommended Cardiomegaly and atherosclerotic vascular disease.
--- NOTE | 2017-09-21 16:03 | General Progress Note ---
Subjective - Review of Systems Service Date: 09/21/17 Objective - Results Result Diagrams: 09/21/17 08:50 09/18/17 20:50 Recent Labs: Laboratory Last Values WBC 6.2 Th/cmm (4.8-10.8) 09/21/17 08:50 RBC 4.13 Mil/cmm (3.80-5.20) 09/21/17 08:50 Hgb 12.8 gm/dL (12-16) 09/21/17 08:50 Hct 38.0 % (41.0-60) L 09/21/17 08:50 MCV 92.0 fl (81-100) 09/21/17 08:50 MCH 31.0 pg (27.0-31.0) 09/21/17 08:50 MCHC Differential 33.7 pg (28.0-36.0) 09/21/17 08:50 RDW 16.9 % (11.5-20.0) 09/21/17 08:50 Plt Count 135 Th/cmm (150-400) L 09/21/17 08:50 MPV 7.5 fl 09/21/17 08:50 Neutrophils % 74.4 % (40.0-80.0) 09/21/17 08:50 Lymphocytes % 13.3 % (20.0-50.0) L 09/21/17 08:50 Monocytes % 9.7 % (2.0-10.0) 09/21/17 08:50 Eosinophils % 2.0 % (0.0-5.0) 09/21/17 08:50 Basophils % 0.6 % (0.0-2.0) 09/21/17 08:50 PT 11.4 SECONDS (9.5-11.5) 09/20/17 09:10 INR 1.09 (0.5-1.4) 09/20/17 09:10 PTT (Actin FS) 22.5 SECONDS (26.0-38.0) L 09/20/17 09:10 Fibrinogen 215.0 mg/dL (200.0-400.0) 09/20/17 09:10 Plt Function Studies SEE COMMENT 09/20/17 09:10 Sodium 140 mEq/L (136-145) 09/18/17 20:50 Potassium 3.5 mEq/L (3.5-5.1) 09/18/17 20:50 Chloride 98 mEq/L (98-107) 09/18/17 20:50 Carbon Dioxide 36.5 mEq/L (21.0-31.0) H 09/18/17 20:50 Anion Gap 9.0 (7.0-16.0) 09/18/17 20:50 BUN 14 mg/dL (7-25) 09/18/17 20:50 Creatinine 1.0 mg/dL (0.6-1.2) 09/18/17 20:50 Est GFR ( Amer) > 60.0 ml/min (>90) 09/18/17 20:50 Est GFR (Non-Af Amer) 58.8 ml/min 09/18/17 20:50 BUN/Creatinine Ratio 14.0 09/18/17 20:50 Glucose 174 mg/dL (70-105) H 09/18/17 20:50 Hemoglobin A1c % 5.8 % (4.0-6.0) 09/18/17 20:50 Calcium 8.4 mg/dL (8.6-10.3) L 09/18/17 20:50 Magnesium 2.0 mg/dL (1.9-2.7) 09/18/17 20:50 Total Bilirubin 0.7 mg/dL (0.3-1.0) 09/18/17 20:50 AST 28 U/L (13-39) 09/18/17 20:50 ALT 26 U/L (7-52) 09/18/17 20:50 Alkaline Phosphatase 123 U/L (34-104) H 09/18/17 20:50 Troponin I 0.04 ng/mL (0.01-0.05) 09/18/17 20:50 B-Natriuretic Peptide 31.5 pg/mL (5.0-100.0) 09/18/17 20:50 Total Protein 5.1 gm/dL (6.0-8.3) L 09/18/17 20:50 Albumin 2.7 gm/dL (3.7-5.3) L 09/18/17 20:50 Globulin 2.4 gm/dL 09/18/17 20:50 Albumin/Globulin Ratio 1.1 (1.0-1.8) 09/18/17 20:50 RPR NONREACTIVE (NONREACTIVE) 09/18/17 20:50 - Physical Exam Vitals and I&O: Vital Signs Temp 99.0 F 09/21/17 15:24 Pulse 90 09/21/17 15:24 Resp 20 09/21/17 15:24 BP 144/84 09/21/17 15:24 Pulse Ox 96 09/21/17 15:24 Intake & Output 09/20/17 09/21/17 09/21/17 18:59 06:59 18:59 Intake Total 1600 Balance 1600 Intake: Oral 1600 Other: # Voids 4 # Bowel Movements 1 Stool Characteristics Formed Brown Active Medications: Current Medications Acetaminophen (Tylenol) 650 mg PO Q4HR PRN PRN Reason: Mild Pain / Temp above 100 Stop: 11/17/17 22:57 Acetylcysteine (Mucomyst 20%) 2 ml HHN Q6HR [facility] Stop: 11/20/17 17:59 Albuterol Sulfate (Albuterol 2.5mg/3ml Neb Ud) 2.5 mg HHN QIDRT [facility] Stop: 11/18/17 14:59 Last Admin: 09/21/17 14:31 Dose: 2.5 mg Buspirone HCl (Buspar) 20 mg PO BID [facility]; Protocol Stop: 11/20/17 08:59 Last Admin: 09/21/17 09:27 Dose: Not Given Duloxetine HCl (Cymbalta) 60 mg PO BID [facility]; Protocol Stop: 11/18/17 08:59 Last Admin: 09/21/17 09:10 Dose: 60 mg Famotidine (Pepcid) 20 mg PO BID [facility] Stop: 11/18/17 08:59 Last Admin: 09/21/17 09:11 Dose: 20 mg Furosemide (Lasix) 40 mg PO DAILY [facility] Stop: 11/20/17 14:09 Last Admin: 09/21/17 14:42 Dose: Not Given Gabapentin (Neurontin) 600 mg PO Q8H [facility] Stop: 11/18/17 05:59 Last Admin: 09/21/17 14:27 Dose: 600 mg Ipratropium [place] (Atrovent Neb 0.5mg/2.5ml) 0.5 mg IH QIDRT [facility] Stop: 11/18/17 14:59 Last Admin: 09/21/17 14:31 Dose: 0.5 mg Lamotrigine (Lamictal) 200 mg PO BID [facility]; Protocol Stop: 11/18/17 08:59 Last Admin: 09/21/17 09:10 Dose: 200 mg Levofloxacin (Levaquin) 500 mg PO DAILY [facility] Stop: 09/27/17 08:59 Last Admin: 09/21/17 09:11 Dose: 500 mg Levothyroxine Sodium (Synthroid) 0.05 mg PO QDAC [facility] Stop: 11/18/17 07:29 Last Admin: 09/21/17 06:34 Dose: 0.05 mg Lorazepam (Ativan) 0.5 mg PO Q4HR PRN; Protocol PRN Reason: Anxiety Stop: 10/18/17 22:57 Last Admin: 09/21/17 14:25 Dose: 0.5 mg Losartan Potassium (Cozaar) 25 mg PO DAILY [facility] Stop: 11/18/17 08:59 Last Admin: 09/21/17 09:11 Dose: Not Given Miscellaneous (Probiotic Screen) 1 ea MC PRN PRN PRN Reason: PROTOCOL Stop: 11/18/17 10:21 Nystatin (Nystop) 100 units TP BID [facility] Stop: 11/20/17 16:59 Prednisone (Deltasone) 15 mg PO DAILY [facility] Stop: 11/18/17 08:59 Last Admin: 09/21/17 09:10 Dose: 15 mg Quetiapine Fumarate (Seroquel) 100 mg PO HS [facility]; Protocol Stop: 11/18/17 20:59 Last Admin: 09/20/17 20:41 Dose: 100 mg Zolpidem Tartrate (Ambien) 5 mg PO HS PRN PRN Reason: Insomnia Stop: 11/17/17 22:57 Last Admin: 09/20/17 20:41 Dose: 5 mg General: Alert HEENT: Atraumatic Neck: Supple Cardiovascular: Regular rate Lungs: Clear to auscultation Abdomen: Bowel sounds Psych/Mental Status: Other (ecchymoses on both forearms) Assessment/Plan - Assessment Assessment: * Ecchymoses on upper extremeties forearms * Mild thrombocytopenia This is likely traumatic normal coag and plt function follow plt count 09/21: plt slightly better. no change in ecchymoses. check duplex LE
[2017-09-21] MEDS: NYSTATIN 100000 UNITS/GM POWD TP SCH (16:57)
--- NOTE | 2017-09-21 22:53 | Progress Notes ---
DATE: 09/21/2017 PSYCHIATRIC PROGRESS NOTE SUBJECTIVE: Staff was spoken to. The patient is interviewed. Mood is noted to be irritable. Affect is constricted. The patient is still presenting with anxiety and depression and the patient has been closely monitored and the patient is currently on Seroquel 100 mg at bedtime and has been able to tolerate the medication. The patient is stating that the medications are making her too drowsy and hence it is decided to change the patient Cymbalta to once a day and the patient is going to be followed outpatient. Coping well at this time are noted to be fair. No side effects to the medications are noted. ASSESSMENT: The patient is still depressed. PLAN: To continue the patient with the supportive therapy, encouraged the patient to verbalize the concerns rather than to act out. JOB# [id number]
[2017-09-22] MEDS: Levothyroxine 0.05 Mg Tab PO SCH (06:36)
[2017-09-22] MEDS: Albuterol Nebulizer 2.5mg/3mL HHN SCH ×4 (06:43→19:08)
[2017-09-22] MEDS: Ipratropium Neb 0.5 mg/2.5 mL UD IH SCH ×4 (06:43→19:08)
[2017-09-22 07:25] LABS: % BASOPHILS 0.7 % (0.0-2.0); % EOSINOPHILS 2.5 % (0.0-5.0); % MONOCYTES 13.7 % (2.0-10.0); % NEUTROPHILS 67.1 % (40.0-80.0); EOSINOPHILE ABSOLUTE 0.1 Th/cmm (0.1-0.4); HEMOGLOBIN 11.1 gm/dL (12-16); LYMPHOCYTE ABSOLUTE 0.8 Th/cmm (1.5-3.0); MEAN CELL VOLUME 91.3 fl (81-100); MEAN CORPUSCULAR HEMOGLOBIN 30.9 pg (27.0-31.0); MEAN CORPUSCULAR HGB CONC 33.9 pg (28.0-36.0); MEAN PLATELET VOLUME 7.5 fl; MONOCYTE ABSOLUTE 0.6 Th/cmm (0.3-1.0); NEUTROPHILE ABSOLUTE 3.2 Th/cmm (1.8-8.0); PLATELET COUNT 118 Th/cmm (150-400); RED CELL DISTRIBUTION WIDTH 16.9 % (11.5-20.0)
[2017-09-22 07:35] LABS: WHITE BLOOD COUNT 4.7 Th/cmm (4.8-10.8)
[2017-09-22 07:36] LABS: HEMATOCRIT 32.8 % (41.0-60)
[2017-09-22 07:49] LABS: ANION GAP 8.4 (7.0-16.0); BUN - UREA NITROGEN 8 mg/dL (7-25); CALCIUM SERUM 8.2 mg/dL (8.6-10.3); CARBON DIOXIDE 29.2 mEq/L (21.0-31.0); CHLORIDE 106 mEq/L (98-107); CREATININE - SERUM 0.6 mg/dL (0.6-1.2); GFR AFRICAN-AMERICAN > 60.0 ml/min (>90); GFR NON AFRICAN-AMERICAN > 60.0 ml/min; GLUCOSE 87 mg/dL (70-105); POTASSIUM SERUM 3.6 mEq/L (3.5-5.1); SODIUM SERUM 140 mEq/L (136-145)
[2017-09-22] MEDS: NYSTATIN 100000 UNITS/GM POWD TP SCH ×2 (09:59→16:27)
--- NOTE | 2017-09-22 12:51 | General Progress Note ---
Subjective - Review of Systems Service Date: 09/22/17 Objective - Results Result Diagrams: 09/22/17 06:57 09/22/17 06:57 Recent Labs: Laboratory Last Values WBC 4.7 Th/cmm (4.8-10.8) L D 09/22/17 06:57 RBC 3.60 Mil/cmm (3.80-5.20) L 09/22/17 06:57 Hgb 11.1 gm/dL (12-16) L 09/22/17 06:57 Hct 32.8 % (41.0-60) L D 09/22/17 06:57 MCV 91.3 fl (81-100) 09/22/17 06:57 MCH 30.9 pg (27.0-31.0) 09/22/17 06:57 MCHC Differential 33.9 pg (28.0-36.0) 09/22/17 06:57 RDW 16.9 % (11.5-20.0) 09/22/17 06:57 Plt Count 118 Th/cmm (150-400) L 09/22/17 06:57 MPV 7.5 fl 09/22/17 06:57 Neutrophils % 67.1 % (40.0-80.0) 09/22/17 06:57 Lymphocytes % 16.0 % (20.0-50.0) L 09/22/17 06:57 Monocytes % 13.7 % (2.0-10.0) H 09/22/17 06:57 Eosinophils % 2.5 % (0.0-5.0) 09/22/17 06:57 Basophils % 0.7 % (0.0-2.0) 09/22/17 06:57 PT 11.4 SECONDS (9.5-11.5) 09/20/17 09:10 INR 1.09 (0.5-1.4) 09/20/17 09:10 PTT (Actin FS) 22.5 SECONDS (26.0-38.0) L 09/20/17 09:10 Fibrinogen 215.0 mg/dL (200.0-400.0) 09/20/17 09:10 Plt Function Studies SEE COMMENT 09/20/17 09:10 Sodium 140 mEq/L (136-145) 09/22/17 06:57 Potassium 3.6 mEq/L (3.5-5.1) 09/22/17 06:57 Chloride 106 mEq/L (98-107) 09/22/17 06:57 Carbon Dioxide 29.2 mEq/L (21.0-31.0) 09/22/17 06:57 Anion Gap 8.4 (7.0-16.0) 09/22/17 06:57 BUN 8 mg/dL (7-25) 09/22/17 06:57 Creatinine 0.6 mg/dL (0.6-1.2) 09/22/17 06:57 Est GFR ( Amer) > 60.0 ml/min (>90) 09/22/17 06:57 Est GFR (Non-Af Amer) > 60.0 ml/min 09/22/17 06:57 BUN/Creatinine Ratio 13.3 09/22/17 06:57 Glucose 87 mg/dL (70-105) 09/22/17 06:57 Hemoglobin A1c % 5.8 % (4.0-6.0) 09/18/17 20:50 Calcium 8.2 mg/dL (8.6-10.3) L 09/22/17 06:57 Magnesium 2.0 mg/dL (1.9-2.7) 09/18/17 20:50 Total Bilirubin 0.7 mg/dL (0.3-1.0) 09/18/17 20:50 AST 28 U/L (13-39) 09/18/17 20:50 ALT 26 U/L (7-52) 09/18/17 20:50 Alkaline Phosphatase 123 U/L (34-104) H 09/18/17 20:50 Troponin I 0.04 ng/mL (0.01-0.05) 09/18/17 20:50 B-Natriuretic Peptide 31.5 pg/mL (5.0-100.0) 09/18/17 20:50 Total Protein 5.1 gm/dL (6.0-8.3) L 09/18/17 20:50 Albumin 2.7 gm/dL (3.7-5.3) L 09/18/17 20:50 Globulin 2.4 gm/dL 09/18/17 20:50 Albumin/Globulin Ratio 1.1 (1.0-1.8) 09/18/17 20:50 RPR NONREACTIVE (NONREACTIVE) 09/18/17 20:50 - Physical Exam Vitals and I&O: Vital Signs Temp 97.6 F 09/21/17 20:36 Pulse 89 09/22/17 10:48 Resp 18 09/22/17 10:48 BP 129/75 09/22/17 10:00 Pulse Ox 98 09/22/17 10:48 Intake & Output 09/21/17 09/22/17 09/22/17 18:59 06:59 18:59 Intake Total 1800 240 Balance 1800 240 Intake: Oral 1800 240 Other: # Voids 4 1 # Bowel Movements 1 Stool Characteristics Formed Formed Formed Brown Brown Brown Active Medications: Current Medications Acetaminophen (Tylenol) 650 mg PO Q4HR PRN PRN Reason: Mild Pain / Temp above 100 Stop: 11/17/17 22:57 Acetylcysteine (Mucomyst 20%) 2 ml HHN Q6HR [facility] Stop: 11/20/17 17:59 Last Admin: 09/22/17 06:43 Dose: 2 ml Albuterol Sulfate (Albuterol 2.5mg/3ml Neb Ud) 2.5 mg HHN QIDRT [facility] Stop: 11/18/17 14:59 Last Admin: 09/22/17 10:45 Dose: 2.5 mg Buspirone HCl (Buspar) 20 mg PO BID [facility]; Protocol Stop: 11/20/17 08:59 Last Admin: 09/22/17 10:00 Dose: 20 mg Duloxetine HCl (Cymbalta) 60 mg PO DAILY [facility]; Protocol Stop: 11/21/17 08:59 Famotidine (Pepcid) 20 mg PO BID [facility] Stop: 11/18/17 08:59 Last Admin: 09/22/17 10:00 Dose: 20 mg Furosemide (Lasix) 40 mg PO DAILY [facility] Stop: 11/20/17 14:09 Last Admin: 09/22/17 10:00 Dose: 40 mg Gabapentin (Neurontin) 600 mg PO Q8H [facility] Stop: 11/18/17 05:59 Last Admin: 09/22/17 05:46 Dose: 600 mg Ipratropium [place] (Atrovent Neb 0.5mg/2.5ml) 0.5 mg IH QIDRT [facility] Stop: 11/18/17 14:59 Last Admin: 09/22/17 10:45 Dose: 0.5 mg Lamotrigine (Lamictal) 200 mg PO BID [facility]; Protocol Stop: 11/18/17 08:59 Last Admin: 09/22/17 10:00 Dose: 200 mg Levofloxacin (Levaquin) 500 mg PO DAILY [facility] Stop: 09/27/17 08:59 Last Admin: 09/22/17 10:00 Dose: 500 mg Levothyroxine Sodium (Synthroid) 0.05 mg PO QDAC [facility] Stop: 11/18/17 07:29 Last Admin: 09/22/17 06:36 Dose: 0.05 mg Lorazepam (Ativan) 0.5 mg PO Q4HR PRN; Protocol PRN Reason: Anxiety Stop: 10/18/17 22:57 Last Admin: 09/22/17 09:32 Dose: 0.5 mg Lorazepam (Ativan) 0.5 mg PO Q6HR PRN; Protocol PRN Reason: Anxiety Stop: 11/21/17 10:06 Losartan Potassium (Cozaar) 25 mg PO DAILY [facility] Stop: 11/18/17 08:59 Last Admin: 09/22/17 10:00 Dose: 25 mg Miscellaneous (Probiotic Screen) 1 ea MC PRN PRN PRN Reason: PROTOCOL Stop: 11/18/17 10:21 Nystatin (Nystop) 100 units TP BID [facility] Stop: 11/20/17 16:59 Last Admin: 09/22/17 09:59 Dose: Not Given Prednisone (Deltasone) 15 mg PO DAILY [facility] Stop: 11/18/17 08:59 Last Admin: 09/22/17 10:00 Dose: 15 mg Quetiapine Fumarate (Seroquel) 100 mg PO HS [facility]; Protocol Stop: 11/18/17 20:59 Last Admin: 09/21/17 21:44 Dose: 100 mg Zolpidem Tartrate (Ambien) 5 mg PO HS PRN PRN Reason: Insomnia Stop: 11/17/17 22:57 Last Admin: 09/20/17 20:41 Dose: 5 mg General: Alert HEENT: Atraumatic Neck: Supple Cardiovascular: Regular rate Lungs: Clear to auscultation Abdomen: Bowel sounds Extremities: Other (ecchysmoses on forearms) Psych/Mental Status: Other (ecchymoses on both forearms) Assessment/Plan - Assessment Assessment: * Ecchymoses on upper extremeties forearms * Mild thrombocytopenia This is likely traumatic normal coag and plt function follow plt count 09/21: plt slightly better. no change in ecchymoses. check duplex LE 09/22: plt stable. awaiting duplex result. no change in ecchymoses Nutritional Asmnt/Malnutr-PDOC - Dietary Evaluation Malnutrition Findings (Please click <Entered> for more info): Nutritional Asmnt/Malnutrition Start: 09/21/17 17: 29 Text: Status: Complete Freq: Protocol: Document 09/21/17 17:29 [email or web address] (Rec: 09/21/17 17:36 [email or web address]) Nutritional Asmnt/Malnutrition Patient General Information Nutritional Screening Moderate Risk Diagnosis psychosis NOS Pertinent Medical Hx/Surgical Hx COPD, stroke HTN, hypothyroidism, bronchitis Subjective Information Per EMR, PO itnake 75-100%. Current Diet Order/ Nutrition Support regular Pertinent Medications pepcid, levqauin, synthroid, seroquel Pertinent Labs 09/18 glucose 174, A1c 5.8 Nutritional Hx/Data Height 1.57 m Height (Calculated Centimeters) 157.5 Current Weight (lbs) 70.307 kg Weight (Calculated Kilograms) 70.3 Weight (Calculated Grams) 18961.8 [place] Body Weight 110 Body Mass Index (BMI) 28.3 Weight Status Overweight GI Symptoms GI Symptoms None Last BM 09/20 Difficult in: None Skin Integrity/Comment: intact Current %PO Good (75-100%) Estimated Nutritional Goals BEE in Kcals: Adj wt of IBW Calories/Kcals/Kg 25-30 adj wt 55kg Kcals Calculated 9875-5057 Protein: Adj wt of IBW Protein g/k-1.2 Protein Calculated 55-66 Fluid: ml 1375-1650ml (1ml/kcal) Nutritional Problem No current Nutrition Prob Problem N/A Malnutrition Alert Is there a minimum of two criteria No selected? Query Text:Check all the applicable criteria. A minimum of two criteria are recommended for diagnosis of either severe or non-severe malnutrition. Malnutrition Related to Morbid Obesity Malnutrition related to morbid obesity No Intervention/Recommendation Comments 1. Continue with current diet as ordered. Monitor glucose level. If glucose high, consider adding CCHO diet. 2. Monitor PO intake, wt, labs and skin integrity 3. F/U as low risk in 7 days, 09/28 Expected Outcomes/Goals Expected Outcomes/Goals 1. PO intake to meet at least 75% of nutritional needs. 2. Wt stability, skin to remain intact, labs to approach WNL.
--- NOTE | 2017-09-22 17:26 | Internal Medicine Prog Note ---
Internal Medicine Subjective - Subjective Service Date: 09/22/17 (patient remains with bilateral lower ext. swelling. Ultrasoun of bilateral lower extremity was just done ) Patient is:: awake Patient Complaints of:: congestion Per staff patient has:: tolerating meds Internal Medicine Objective - Results Result Diagrams: 09/22/17 06:57 09/22/17 06:57 Recent Labs: Laboratory Last Values WBC 4.7 Th/cmm (4.8-10.8) L D 09/22/17 06:57 RBC 3.60 Mil/cmm (3.80-5.20) L 09/22/17 06:57 Hgb 11.1 gm/dL (12-16) L 09/22/17 06:57 Hct 32.8 % (41.0-60) L D 09/22/17 06:57 MCV 91.3 fl (81-100) 09/22/17 06:57 MCH 30.9 pg (27.0-31.0) 09/22/17 06:57 MCHC Differential 33.9 pg (28.0-36.0) 09/22/17 06:57 RDW 16.9 % (11.5-20.0) 09/22/17 06:57 Plt Count 118 Th/cmm (150-400) L 09/22/17 06:57 MPV 7.5 fl 09/22/17 06:57 Neutrophils % 67.1 % (40.0-80.0) 09/22/17 06:57 Lymphocytes % 16.0 % (20.0-50.0) L 09/22/17 06:57 Monocytes % 13.7 % (2.0-10.0) H 09/22/17 06:57 Eosinophils % 2.5 % (0.0-5.0) 09/22/17 06:57 Basophils % 0.7 % (0.0-2.0) 09/22/17 06:57 PT 11.4 SECONDS (9.5-11.5) 09/20/17 09:10 INR 1.09 (0.5-1.4) 09/20/17 09:10 PTT (Actin FS) 22.5 SECONDS (26.0-38.0) L 09/20/17 09:10 Fibrinogen 215.0 mg/dL (200.0-400.0) 09/20/17 09:10 Plt Function Studies SEE COMMENT 09/20/17 09:10 Sodium 140 mEq/L (136-145) 09/22/17 06:57 Potassium 3.6 mEq/L (3.5-5.1) 09/22/17 06:57 Chloride 106 mEq/L (98-107) 09/22/17 06:57 Carbon Dioxide 29.2 mEq/L (21.0-31.0) 09/22/17 06:57 Anion Gap 8.4 (7.0-16.0) 09/22/17 06:57 BUN 8 mg/dL (7-25) 09/22/17 06:57 Creatinine 0.6 mg/dL (0.6-1.2) 09/22/17 06:57 Est GFR ( Amer) > 60.0 ml/min (>90) 09/22/17 06:57 Est GFR (Non-Af Amer) > 60.0 ml/min 09/22/17 06:57 BUN/Creatinine Ratio 13.3 09/22/17 06:57 Glucose 87 mg/dL (70-105) 09/22/17 06:57 Hemoglobin A1c % 5.8 % (4.0-6.0) 09/18/17 20:50 Calcium 8.2 mg/dL (8.6-10.3) L 09/22/17 06:57 Magnesium 2.0 mg/dL (1.9-2.7) 09/18/17 20:50 Total Bilirubin 0.7 mg/dL (0.3-1.0) 09/18/17 20:50 AST 28 U/L (13-39) 09/18/17 20:50 ALT 26 U/L (7-52) 09/18/17 20:50 Alkaline Phosphatase 123 U/L (34-104) H 09/18/17 20:50 Troponin I 0.04 ng/mL (0.01-0.05) 09/18/17 20:50 B-Natriuretic Peptide 31.5 pg/mL (5.0-100.0) 09/18/17 20:50 Total Protein 5.1 gm/dL (6.0-8.3) L 09/18/17 20:50 Albumin 2.7 gm/dL (3.7-5.3) L 09/18/17 20:50 Globulin 2.4 gm/dL 09/18/17 20:50 Albumin/Globulin Ratio 1.1 (1.0-1.8) 09/18/17 20:50 RPR NONREACTIVE (NONREACTIVE) 09/18/17 20:50 - Physical Exam Vitals and I&O: Vital Signs Temp 99.7 F 09/22/17 16:14 Pulse 100 09/22/17 16:14 Resp 20 09/22/17 16:14 BP 132/67 09/22/17 16:14 Pulse Ox 93 09/22/17 16:14 Intake & Output 09/21/17 09/22/17 09/22/17 18:59 06:59 18:59 Intake Total 1800 240 Balance 1800 240 Intake: Oral 1800 240 Other: # Voids 4 1 # Bowel Movements 1 Stool Characteristics Formed Formed Formed Brown Brown Brown Active Medications: Current Medications Acetaminophen (Tylenol) 650 mg PO Q4HR PRN PRN Reason: Mild Pain / Temp above 100 Stop: 11/17/17 22:57 Acetylcysteine (Mucomyst 20%) 2 ml HHN Q6HR [facility] Stop: 11/20/17 17:59 Last Admin: 09/22/17 14:40 Dose: 2 ml Albuterol Sulfate (Albuterol 2.5mg/3ml Neb Ud) 2.5 mg HHN QIDRT [facility] Stop: 11/18/17 14:59 Last Admin: 09/22/17 14:40 Dose: 2.5 mg Buspirone HCl (Buspar) 20 mg PO BID [facility]; Protocol Stop: 11/20/17 08:59 Last Admin: 09/22/17 16:27 Dose: 20 mg Duloxetine HCl (Cymbalta) 60 mg PO DAILY [facility]; Protocol Stop: 11/21/17 08:59 Last Admin: 09/22/17 09:00 Dose: Not Given Famotidine (Pepcid) 20 mg PO BID [facility] Stop: 11/18/17 08:59 Last Admin: 09/22/17 16:27 Dose: 20 mg Furosemide (Lasix) 40 mg PO DAILY [facility] Stop: 11/20/17 14:09 Last Admin: 09/22/17 10:00 Dose: 40 mg Gabapentin (Neurontin) 600 mg PO Q8H [facility] Stop: 11/18/17 05:59 Last Admin: 09/22/17 14:30 Dose: 600 mg Ipratropium [place] (Atrovent Neb 0.5mg/2.5ml) 0.5 mg IH QIDRT [facility] Stop: 11/18/17 14:59 Last Admin: 09/22/17 14:40 Dose: 0.5 mg Lamotrigine (Lamictal) 200 mg PO BID [facility]; Protocol Stop: 11/18/17 08:59 Last Admin: 09/22/17 16:27 Dose: 200 mg Levofloxacin (Levaquin) 500 mg PO DAILY [facility] Stop: 09/27/17 08:59 Last Admin: 09/22/17 10:00 Dose: 500 mg Levothyroxine Sodium (Synthroid) 0.05 mg PO QDAC [facility] Stop: 11/18/17 07:29 Last Admin: 09/22/17 06:36 Dose: 0.05 mg Lorazepam (Ativan) 0.5 mg PO Q4HR PRN; Protocol PRN Reason: Anxiety Stop: 10/18/17 22:57 Last Admin: 09/22/17 09:32 Dose: 0.5 mg Lorazepam (Ativan) 0.5 mg PO Q6HR PRN; Protocol PRN Reason: Anxiety Stop: 11/21/17 10:06 Last Admin: 09/22/17 15:19 Dose: 0.5 mg Losartan Potassium (Cozaar) 25 mg PO DAILY [facility] Stop: 11/18/17 08:59 Last Admin: 09/22/17 10:00 Dose: 25 mg Miscellaneous (Probiotic Screen) 1 ea MC PRN PRN PRN Reason: PROTOCOL Stop: 11/18/17 10:21 Nystatin (Nystop) 100 units TP BID [facility] Stop: 11/20/17 16:59 Last Admin: 09/22/17 16:27 Dose: 100 units Prednisone (Deltasone) 15 mg PO DAILY [facility] Stop: 11/18/17 08:59 Last Admin: 09/22/17 10:00 Dose: 15 mg Quetiapine Fumarate (Seroquel) 100 mg PO HS [facility]; Protocol Stop: 11/18/17 20:59 Last Admin: 09/21/17 21:44 Dose: 100 mg Zolpidem Tartrate (Ambien) 5 mg PO HS PRN PRN Reason: Insomnia Stop: 11/17/17 22:57 Last Admin: 09/20/17 20:41 Dose: 5 mg General: alert HEENT: NC/AT, PERRLA Neck: Supple Lungs: ronchi Cardiovascular: RRR, Normal S1, Normal S2 Abdomen: soft, non-tender, non-distended Neurological: no change Internal Medicine Assmt/Plan - Assessment Assessment: copd htn hypothyroidism right hand abrasion hyperglycemia low albumin obesity - Plan Plan: await for results bilateral lower ext doppler supplemental oxygen as needed bronchodilators as needed monitor glucose continue current plan of care Nutritional Asmnt/Malnutr-PDOC - Dietary Evaluation Malnutrition Findings (Please click <Entered> for more info): Nutritional Asmnt/Malnutrition Start: 09/21/17 17: 29 Text: Status: Complete Freq: Protocol: Document 09/21/17 17:29 [email or web address] (Rec: 09/21/17 17:36 [email or web address]) Nutritional Asmnt/Malnutrition Patient General Information Nutritional Screening Moderate Risk Diagnosis psychosis NOS Pertinent Medical Hx/Surgical Hx COPD, stroke HTN, hypothyroidism, bronchitis Subjective Information Per EMR, PO itnake 75-100%. Current Diet Order/ Nutrition Support regular Pertinent Medications pepcid, levqauin, synthroid, seroquel Pertinent Labs 09/18 glucose 174, A1c 5.8 Nutritional Hx/Data Height 5 ft 2 in Height (Calculated Centimeters) 157.5 Current Weight (lbs) 155 lb Weight (Calculated Kilograms) 70.3 Weight (Calculated Grams) 07264.8 [place] Body Weight 110 Body Mass Index (BMI) 28.3 Weight Status Overweight GI Symptoms GI Symptoms None Last BM 09/20 Difficult in: None Skin Integrity/Comment: intact Current %PO Good (75-100%) Estimated Nutritional Goals BEE in Kcals: Adj wt of IBW Calories/Kcals/Kg 25-30 adj wt 55kg Kcals Calculated 2093-1443 Protein: Adj wt of IBW Protein g/k-1.2 Protein Calculated 55-66 Fluid: ml 1375-1650ml (1ml/kcal) Nutritional Problem No current Nutrition Prob Problem N/A Malnutrition Alert Is there a minimum of two criteria No selected? Query Text:Check all the applicable criteria. A minimum of two criteria are recommended for diagnosis of either severe or non-severe malnutrition. Malnutrition Related to Morbid Obesity Malnutrition related to morbid obesity No Intervention/Recommendation Comments 1. Continue with current diet as ordered. Monitor glucose level. If glucose high, consider adding CCHO diet. 2. Monitor PO intake, wt, labs and skin integrity 3. F/U as low risk in 7 days, 09/28 Expected Outcomes/Goals Expected Outcomes/Goals 1. PO intake to meet at least 75% of nutritional needs. 2. Wt stability, skin to remain intact, labs to approach WNL.
--- NOTE | 2017-09-22 18:31 | Consultation ---
DATE OF CONSULTATION: 09/21/2017 REFERRING PHYSICIAN: Ravin Wayne MD TYPE OF CONSULTATION: Psychology. HISTORY OF PRESENT ILLNESS: The patient is a 67-year-old female who is a resident of [facility]. The following is by review of the medical record as well as by the patient's self-report. The patient is being admitted due to acute agitation. Upon interview, the patient states that she does not understand why she has been brought to the hospital. The staff at the patient's facility indicate that her behavior has become uncontainable with screaming and yelling episodes and aggressive behavior. The patient states that she has pain, but was not specific as to rating the pain or the specific location. The patient denied any suicidal ideation, plan or intention. PAST MEDICAL HISTORY: Please see history and physical by Dr. Navarrete. PAST PSYCHIATRIC HISTORY: Details are unavailable at the time of this clinical interview. SUBSTANCE ABUSE HISTORY: The patient denies any history. SOCIAL HISTORY: The patient is a resident of [facility]. 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 The patient is . The patient states she has two children who are part of her support system. The patient states no specific faith affiliation. The patient denied any history of physical or sexual abuse or any current legal problems. The patient wishes to return to her senior living facility. MENTAL STATUS EXAMINATION: The patient appears to be her stated age. The patient's attitude is superficially cooperative. Eye contact is fair. Speech is spontaneous. Mood is irritable. Affect is constricted. Thought process shows to be linear. The patient denied any suicidal ideation, plan or intention. The patient denied any auditory or visual hallucinations or any delusions. The patient is stating that she does not believe she needs to be hospitalized. The patient's behavior on the unit has been difficult to redirect with some yelling episodes. Impulse control is limited. Concentration is fair. The patient was able to sustain focus and attention and respond to clinical questions relevantly and coherently. Sensorium is alert and oriented to self and place. The patient is not understanding why she needs to be hospitalized and is easily frustrated. The patient's memory assessment was only partially completed. 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 The patient did not participate in the interpretation of proverbs. Insight is poor. Judgment is compromised. DIAGNOSTIC IMPRESSION: AXIS I: Bipolar disorder, depressed. AXIS II: Deferred. AXIS III: Please see history and physical by Dr. Navarrete. TREATMENT PLAN: The patient has been seen by Dr. Wayne for psychiatric evaluation and for the management of the patient's psychotropic medications. The patient is being continued on duloxetine and Lamictal according to the medication reconciliation. We will provide supportive psychotherapy to include coping mechanisms for chronic long-term mental illness. We will provide coping strategies for phase of life issues. We will encourage the patient to demonstrate emotional and self-regulation prior to discharge. We will continue to provide supportive therapy throughout the patient's hospital stay and encourage compliance with all aspects of her care and treatment. Thank you, Dr. Wayne, for this consult and the opportunity to participate with you in this patient's care. [facility]# [id number]
--- NOTE | 2017-09-22 18:39 | Progress Notes ---
DATE: 09/22/2017 SUBJECTIVE: Staff was spoken to. The patient is interviewed. Mood is noted to be irritable. Affect is constricted. The patient is stating that she has been having a rash in the vulval area and she has been requesting some medication, but she states that she does not know why it has been taking so long for them to bring the medication. It has been more than 24 hours. The patient's coping skills at this time are noted to be very poor. The patient has been getting easily irritable and angry. No side effects to the medications are noted. ASSESSMENT AND PLAN: In view of her anxiety, it is decided to place the patient on lorazepam as 0.5 mg q. 4 hours p.r.n. and encouraged the patient to verbalize the concerns rather than to act out. Follow the patient with the supportive therapy. JOB# [id number]
[2017-09-23] MEDS: Ipratropium Neb 0.5 mg/2.5 mL UD IH SCH ×4 (06:28→18:56)
[2017-09-23] MEDS: Albuterol Nebulizer 2.5mg/3mL HHN SCH ×4 (06:28→18:56)
[2017-09-23] MEDS: Levothyroxine 0.05 Mg Tab PO SCH ×2 (06:33→06:50)
--- NOTE | 2017-09-23 09:41 | Diagnostic Imaging Report ---
Bilateral lower extremity DVT study HISTORY: Swelling COMPARISON: None Technique: Longitudinal and transverse sonographic images of the bilateral lower extremity veins were obtained with doppler analysis. FINDINGS: There is normal compressibility, augmentation and phasicity of the bilateral common femoral, superficial femoral, popliteal, and posterior tibial veins. No thrombus is visualized. IMPRESSION: No evidence of thrombus within the bilateral lower extremity veins.
[2017-09-23] MEDS: NYSTATIN 100000 UNITS/GM POWD TP SCH ×2 (10:00→17:21)
--- NOTE | 2017-09-23 12:36 | Internal Medicine Prog Note ---
Internal Medicine Subjective - Subjective Service Date: 09/23/17 Patient is:: awake Patient Complaints of:: cough Per staff patient has:: tolerating meds Internal Medicine Objective - Results Result Diagrams: 09/22/17 06:57 09/22/17 06:57 Recent Labs: Laboratory Last Values WBC 4.7 Th/cmm (4.8-10.8) L D 09/22/17 06:57 RBC 3.60 Mil/cmm (3.80-5.20) L 09/22/17 06:57 Hgb 11.1 gm/dL (12-16) L 09/22/17 06:57 Hct 32.8 % (41.0-60) L D 09/22/17 06:57 MCV 91.3 fl (81-100) 09/22/17 06:57 MCH 30.9 pg (27.0-31.0) 09/22/17 06:57 MCHC Differential 33.9 pg (28.0-36.0) 09/22/17 06:57 RDW 16.9 % (11.5-20.0) 09/22/17 06:57 Plt Count 118 Th/cmm (150-400) L 09/22/17 06:57 MPV 7.5 fl 09/22/17 06:57 Neutrophils % 67.1 % (40.0-80.0) 09/22/17 06:57 Lymphocytes % 16.0 % (20.0-50.0) L 09/22/17 06:57 Monocytes % 13.7 % (2.0-10.0) H 09/22/17 06:57 Eosinophils % 2.5 % (0.0-5.0) 09/22/17 06:57 Basophils % 0.7 % (0.0-2.0) 09/22/17 06:57 PT 11.4 SECONDS (9.5-11.5) 09/20/17 09:10 INR 1.09 (0.5-1.4) 09/20/17 09:10 PTT (Actin FS) 22.5 SECONDS (26.0-38.0) L 09/20/17 09:10 Fibrinogen 215.0 mg/dL (200.0-400.0) 09/20/17 09:10 Plt Function Studies SEE COMMENT 09/20/17 09:10 Sodium 140 mEq/L (136-145) 09/22/17 06:57 Potassium 3.6 mEq/L (3.5-5.1) 09/22/17 06:57 Chloride 106 mEq/L (98-107) 09/22/17 06:57 Carbon Dioxide 29.2 mEq/L (21.0-31.0) 09/22/17 06:57 Anion Gap 8.4 (7.0-16.0) 09/22/17 06:57 BUN 8 mg/dL (7-25) 09/22/17 06:57 Creatinine 0.6 mg/dL (0.6-1.2) 09/22/17 06:57 Est GFR ( Amer) > 60.0 ml/min (>90) 09/22/17 06:57 Est GFR (Non-Af Amer) > 60.0 ml/min 09/22/17 06:57 BUN/Creatinine Ratio 13.3 09/22/17 06:57 Glucose 87 mg/dL (70-105) 09/22/17 06:57 Hemoglobin A1c % 5.8 % (4.0-6.0) 09/18/17 20:50 Calcium 8.2 mg/dL (8.6-10.3) L 09/22/17 06:57 Magnesium 2.0 mg/dL (1.9-2.7) 09/18/17 20:50 Total Bilirubin 0.7 mg/dL (0.3-1.0) 09/18/17 20:50 AST 28 U/L (13-39) 09/18/17 20:50 ALT 26 U/L (7-52) 09/18/17 20:50 Alkaline Phosphatase 123 U/L (34-104) H 09/18/17 20:50 Troponin I 0.04 ng/mL (0.01-0.05) 09/18/17 20:50 B-Natriuretic Peptide 31.5 pg/mL (5.0-100.0) 09/18/17 20:50 Total Protein 5.1 gm/dL (6.0-8.3) L 09/18/17 20:50 Albumin 2.7 gm/dL (3.7-5.3) L 09/18/17 20:50 Globulin 2.4 gm/dL 09/18/17 20:50 Albumin/Globulin Ratio 1.1 (1.0-1.8) 09/18/17 20:50 RPR NONREACTIVE (NONREACTIVE) 09/18/17 20:50 - Physical Exam Vitals and I&O: Vital Signs Temp 98.7 F 09/23/17 06:39 Pulse 79 09/23/17 10:36 Resp 18 09/23/17 10:36 BP 130/75 09/23/17 06:39 Pulse Ox 93 09/23/17 10:36 Intake & Output 09/22/17 09/23/17 09/23/17 18:59 06:59 18:59 Intake Total 1800 120 Balance 1800 120 Intake: Oral 1800 120 Other: # Voids 4 3 Stool Characteristics Formed Formed Brown Brown Active Medications: Current Medications Acetaminophen (Tylenol) 650 mg PO Q4HR PRN PRN Reason: Mild Pain / Temp above 100 Stop: 11/17/17 22:57 Acetylcysteine (Mucomyst 20%) 2 ml HHN Q6HR [facility] Stop: 11/20/17 17:59 Last Admin: 09/23/17 06:34 Dose: 2 ml Albuterol Sulfate (Albuterol 2.5mg/3ml Neb Ud) 2.5 mg HHN QIDRT [facility] Stop: 11/18/17 14:59 Last Admin: 09/23/17 10:31 Dose: 2.5 mg Buspirone HCl (Buspar) 20 mg PO BID [facility]; Protocol Stop: 11/20/17 08:59 Last Admin: 09/22/17 16:27 Dose: 20 mg Duloxetine HCl (Cymbalta) 60 mg PO DAILY [facility]; Protocol Stop: 11/21/17 08:59 Last Admin: 09/22/17 09:00 Dose: Not Given Famotidine (Pepcid) 20 mg PO BID [facility] Stop: 11/18/17 08:59 Last Admin: 09/22/17 16:27 Dose: 20 mg Furosemide (Lasix) 40 mg PO DAILY [facility] Stop: 11/20/17 14:09 Last Admin: 09/22/17 10:00 Dose: 40 mg Gabapentin (Neurontin) 600 mg PO Q8H [facility] Stop: 11/18/17 05:59 Last Admin: 09/23/17 06:50 Dose: Not Given Ipratropium [place] (Atrovent Neb 0.5mg/2.5ml) 0.5 mg IH QIDRT [facility] Stop: 11/18/17 14:59 Last Admin: 09/23/17 10:31 Dose: 0.5 mg Lamotrigine (Lamictal) 200 mg PO BID [facility]; Protocol Stop: 11/18/17 08:59 Last Admin: 09/22/17 16:27 Dose: 200 mg Levofloxacin (Levaquin) 500 mg PO DAILY [facility] Stop: 09/27/17 08:59 Last Admin: 09/22/17 10:00 Dose: 500 mg Levothyroxine Sodium (Synthroid) 0.05 mg PO QDAC [facility] Stop: 11/18/17 07:29 Last Admin: 09/23/17 06:50 Dose: Not Given Lorazepam (Ativan) 0.5 mg PO Q4HR PRN; Protocol PRN Reason: Anxiety Stop: 10/18/17 22:57 Last Admin: 09/22/17 09:32 Dose: 0.5 mg Lorazepam (Ativan) 0.5 mg PO Q6HR PRN; Protocol PRN Reason: Anxiety Stop: 11/21/17 10:06 Last Admin: 09/22/17 15:19 Dose: 0.5 mg Losartan Potassium (Cozaar) 25 mg PO DAILY [facility] Stop: 11/18/17 08:59 Last Admin: 09/22/17 10:00 Dose: 25 mg Miscellaneous (Probiotic Screen) 1 ea MC PRN PRN PRN Reason: PROTOCOL Stop: 11/18/17 10:21 Nystatin (Nystop) 100 units TP BID [facility] Stop: 11/20/17 16:59 Last Admin: 09/22/17 16:27 Dose: 100 units Prednisone (Deltasone) 15 mg PO DAILY [facility] Stop: 11/18/17 08:59 Last Admin: 09/22/17 10:00 Dose: 15 mg Quetiapine Fumarate (Seroquel) 150 mg PO HS [facility]; Protocol Stop: 11/22/17 20:59 Zolpidem Tartrate (Ambien) 5 mg PO HS PRN PRN Reason: Insomnia Stop: 11/17/17 22:57 Last Admin: 09/22/17 20:15 Dose: 5 mg General: alert HEENT: NC/AT, PERRLA Neck: Supple Lungs: ronchi Cardiovascular: RRR, Normal S1, Normal S2 Abdomen: soft, non-tender, non-distended Neurological: no change Internal Medicine Assmt/Plan - Assessment Assessment: copd htn hypothyroidism right hand abrasion hyperglycemia low albumin obesity - Plan Plan: supplemental oxygen as needed bronchodilators as needed monitor glucose continue current plan of care Nutritional Asmnt/Malnutr-PDOC - Dietary Evaluation Malnutrition Findings (Please click <Entered> for more info): Nutritional Asmnt/Malnutrition Start: 09/21/17 17: 29 Text: Status: Complete Freq: Protocol: Document 09/21/17 17:29 LCHENG (Rec: 09/21/17 17:36 LCHENG [email or web address]) Nutritional Asmnt/Malnutrition Patient General Information Nutritional Screening Moderate Risk Diagnosis psychosis NOS Pertinent Medical Hx/Surgical Hx COPD, stroke HTN, hypothyroidism, bronchitis Subjective Information Per EMR, PO itnake 75-100%. Current Diet Order/ Nutrition Support regular Pertinent Medications pepcid, levqauin, synthroid, seroquel Pertinent Labs 09/18 glucose 174, A1c 5.8 Nutritional Hx/Data Height 5 ft 2 in Height (Calculated Centimeters) 157.5 Current Weight (lbs) 155 lb Weight (Calculated Kilograms) 70.3 Weight (Calculated Grams) 76951.8 [place] Body Weight 110 Body Mass Index (BMI) 28.3 Weight Status Overweight GI Symptoms GI Symptoms None Last BM 09/20 Difficult in: None Skin Integrity/Comment: intact Current %PO Good (75-100%) Estimated Nutritional Goals BEE in Kcals: Adj wt of IBW Calories/Kcals/Kg 25-30 adj wt 55kg Kcals Calculated 2564-6799 Protein: Adj wt of IBW Protein g/k-1.2 Protein Calculated 55-66 Fluid: ml 1375-1650ml (1ml/kcal) Nutritional Problem No current Nutrition Prob Problem N/A Malnutrition Alert Is there a minimum of two criteria No selected? Query Text:Check all the applicable criteria. A minimum of two criteria are recommended for diagnosis of either severe or non-severe malnutrition. Malnutrition Related to Morbid Obesity Malnutrition related to morbid obesity No Intervention/Recommendation Comments 1. Continue with current diet as ordered. Monitor glucose level. If glucose high, consider adding CCHO diet. 2. Monitor PO intake, wt, labs and skin integrity 3. F/U as low risk in 7 days, /8 Expected Outcomes/Goals Expected Outcomes/Goals 1. PO intake to meet at least 75% of nutritional needs. 2. Wt stability, skin to remain intact, labs to approach WNL.
--- NOTE | 2017-09-23 13:29 | Progress Notes ---
DATE: 09/23/2017 PSYCHIATRIC PROGRESS NOTE SUBJECTIVE: Staff was spoken to. The patient is interviewed. Mood is noted to be irritable. Affect is constricted. The patient is very agitated at this time. The patient is stating that she was supposed to get her medications early in the morning and she should be given the medication first thing because the patient has been stating that they delayed in giving her medications, and the patient has been going on and on about why it has been happening. The patient's coping skills at this time are noted to be very poor. The patient has been getting easily irritable and angry and has been having difficult time to cope with the stress. ASSESSMENT: The patient is depressed and paranoid. PLAN: To continue the patient with supportive therapy and work with the staff members in getting the medications on time for the patient. The patient is currently on 60 mg of duloxetine on a daily basis. The patient has been getting 20 mg twice a day of BuSpar. Lamictal has been given 200 mg twice a day. I am going to be increasing the dose on Seroquel to 100-150 mg at bedtime and follow the patient up. The patient is not ready to be discharged to a lower level of care yet. JOB# [id number]
[2017-09-24] MEDS: Levothyroxine 0.05 Mg Tab PO SCH (06:38)
[2017-09-24] MEDS: Ipratropium Neb 0.5 mg/2.5 mL UD IH SCH ×4 (06:56→19:04)
[2017-09-24] MEDS: Albuterol Nebulizer 2.5mg/3mL HHN SCH ×4 (06:56→19:04)
[2017-09-24 09:43] LABS: % BASOPHILS 0.8 % (0.0-2.0); % EOSINOPHILS 2.6 % (0.0-5.0); % LYMPHOCYTES 15.3 % (20.0-50.0); % MONOCYTES 12.4 % (2.0-10.0); % NEUTROPHILS 68.9 % (40.0-80.0); EOSINOPHILE ABSOLUTE 0.1 Th/cmm (0.1-0.4); HEMOGLOBIN 12.1 gm/dL (12-16); LYMPHOCYTE ABSOLUTE 0.7 Th/cmm (1.5-3.0); MEAN CORPUSCULAR HEMOGLOBIN 30.5 pg (27.0-31.0); MEAN CORPUSCULAR HGB CONC 33.5 pg (28.0-36.0); MEAN PLATELET VOLUME 7.6 fl; MONOCYTE ABSOLUTE 0.6 Th/cmm (0.3-1.0); NEUTROPHILE ABSOLUTE 3.3 Th/cmm (1.8-8.0); PLATELET COUNT 121 Th/cmm (150-400); RED BLOOD COUNT 3.96 Mil/cmm (3.80-5.20); RED CELL DISTRIBUTION WIDTH 16.7 % (11.5-20.0); WHITE BLOOD COUNT 4.7 Th/cmm (4.8-10.8)
--- NOTE | 2017-09-24 10:06 | Internal Medicine Prog Note ---
Internal Medicine Subjective - Subjective Service Date: 09/24/17 (COUGH MUCH BETTER , DENIES ANY SOB ) Patient seen and examined:: with staff Patient is:: awake Patient Complaints of:: cough Per staff patient has:: tolerating meds Internal Medicine Objective - Results Result Diagrams: 09/24/17 09:33 09/22/17 06:57 Recent Labs: Laboratory Last Values WBC 4.7 Th/cmm (4.8-10.8) L 09/24/17 09:33 RBC 3.96 Mil/cmm (3.80-5.20) 09/24/17 09:33 Hgb 12.1 gm/dL (12-16) 09/24/17 09:33 Hct 36.0 % (41.0-60) L 09/24/17 09:33 MCV 91.0 fl (81-100) 09/24/17 09:33 MCH 30.5 pg (27.0-31.0) 09/24/17 09:33 MCHC Differential 33.5 pg (28.0-36.0) 09/24/17 09:33 RDW 16.7 % (11.5-20.0) 09/24/17 09:33 Plt Count 121 Th/cmm (150-400) L 09/24/17 09:33 MPV 7.6 fl 09/24/17 09:33 Neutrophils % 68.9 % (40.0-80.0) 09/24/17 09:33 Lymphocytes % 15.3 % (20.0-50.0) L 09/24/17 09:33 Monocytes % 12.4 % (2.0-10.0) H 09/24/17 09:33 Eosinophils % 2.6 % (0.0-5.0) 09/24/17 09:33 Basophils % 0.8 % (0.0-2.0) 09/24/17 09:33 PT 11.4 SECONDS (9.5-11.5) 09/20/17 09:10 INR 1.09 (0.5-1.4) 09/20/17 09:10 PTT (Actin FS) 22.5 SECONDS (26.0-38.0) L 09/20/17 09:10 Fibrinogen 215.0 mg/dL (200.0-400.0) 09/20/17 09:10 Plt Function Studies SEE COMMENT 09/20/17 09:10 Sodium 140 mEq/L (136-145) 09/22/17 06:57 Potassium 3.6 mEq/L (3.5-5.1) 09/22/17 06:57 Chloride 106 mEq/L (98-107) 09/22/17 06:57 Carbon Dioxide 29.2 mEq/L (21.0-31.0) 09/22/17 06:57 Anion Gap 8.4 (7.0-16.0) 09/22/17 06:57 BUN 8 mg/dL (7-25) 09/22/17 06:57 Creatinine 0.6 mg/dL (0.6-1.2) 09/22/17 06:57 Est GFR ( Amer) > 60.0 ml/min (>90) 09/22/17 06:57 Est GFR (Non-Af Amer) > 60.0 ml/min 09/22/17 06:57 BUN/Creatinine Ratio 13.3 09/22/17 06:57 Glucose 87 mg/dL (70-105) 09/22/17 06:57 Hemoglobin A1c % 5.8 % (4.0-6.0) 09/18/17 20:50 Calcium 8.2 mg/dL (8.6-10.3) L 09/22/17 06:57 Magnesium 2.0 mg/dL (1.9-2.7) 09/18/17 20:50 Total Bilirubin 0.7 mg/dL (0.3-1.0) 09/18/17 20:50 AST 28 U/L (13-39) 09/18/17 20:50 ALT 26 U/L (7-52) 09/18/17 20:50 Alkaline Phosphatase 123 U/L (34-104) H 09/18/17 20:50 Troponin I 0.04 ng/mL (0.01-0.05) 09/18/17 20:50 B-Natriuretic Peptide 31.5 pg/mL (5.0-100.0) 09/18/17 20:50 Total Protein 5.1 gm/dL (6.0-8.3) L 09/18/17 20:50 Albumin 2.7 gm/dL (3.7-5.3) L 09/18/17 20:50 Globulin 2.4 gm/dL 09/18/17 20:50 Albumin/Globulin Ratio 1.1 (1.0-1.8) 09/18/17 20:50 RPR NONREACTIVE (NONREACTIVE) 09/18/17 20:50 - Physical Exam Vitals and I&O: Vital Signs Temp 97.9 F 09/24/17 06:35 Pulse 77 09/24/17 08:15 Resp 22 09/24/17 06:56 BP 135/71 09/24/17 08:15 Pulse Ox 96 09/24/17 06:56 Intake & Output 09/23/17 09/24/17 09/24/17 18:59 06:59 18:59 Intake Total 300 Balance 300 Intake: Oral 300 Other: # Voids 2 # Bowel Movements 0 Stool Characteristics Formed Brown Active Medications: Current Medications Acetaminophen (Tylenol) 650 mg PO Q4HR PRN PRN Reason: Mild Pain / Temp above 100 Stop: 11/17/17 22:57 Acetylcysteine (Mucomyst 20%) 2 ml HHN Q6HR [facility] Stop: 11/20/17 17:59 Last Admin: 09/24/17 06:59 Dose: 2 ml Albuterol Sulfate (Albuterol 2.5mg/3ml Neb Ud) 2.5 mg HHN QIDRT [facility] Stop: 11/18/17 14:59 Last Admin: 09/24/17 06:56 Dose: 2.5 mg Buspirone HCl (Buspar) 20 mg PO BID [facility]; Protocol Stop: 11/20/17 08:59 Last Admin: 09/24/17 08:12 Dose: 20 mg Duloxetine HCl (Cymbalta) 60 mg PO DAILY [facility]; Protocol Stop: 11/21/17 08:59 Last Admin: 09/24/17 08:13 Dose: 60 mg Famotidine (Pepcid) 20 mg PO BID [facility] Stop: 11/18/17 08:59 Last Admin: 09/24/17 08:13 Dose: 20 mg Furosemide (Lasix) 40 mg PO DAILY [facility] Stop: 11/20/17 14:09 Last Admin: 09/24/17 08:14 Dose: 40 mg Gabapentin (Neurontin) 600 mg PO Q8H [facility] Stop: 11/18/17 05:59 Last Admin: 09/24/17 06:38 Dose: 600 mg Ipratropium [place] (Atrovent Neb 0.5mg/2.5ml) 0.5 mg IH QIDRT [facility] Stop: 11/18/17 14:59 Last Admin: 09/24/17 06:56 Dose: 0.5 mg Lamotrigine (Lamictal) 200 mg PO BID [facility]; Protocol Stop: 11/18/17 08:59 Last Admin: 09/24/17 08:14 Dose: 200 mg Levofloxacin (Levaquin) 500 mg PO DAILY [facility] Stop: 09/27/17 08:59 Last Admin: 09/24/17 08:14 Dose: 500 mg Levothyroxine Sodium (Synthroid) 0.05 mg PO QDAC [facility] Stop: 11/18/17 07:29 Last Admin: 09/24/17 06:38 Dose: 0.05 mg Lorazepam (Ativan) 0.5 mg PO Q6HR PRN; Protocol PRN Reason: Anxiety Stop: 11/21/17 10:06 Last Admin: 09/24/17 03:07 Dose: 0.5 mg Losartan Potassium (Cozaar) 25 mg PO DAILY [facility] Stop: 11/18/17 08:59 Last Admin: 09/24/17 08:15 Dose: 25 mg Miscellaneous (Probiotic Screen) 1 ea MC PRN PRN PRN Reason: PROTOCOL Stop: 11/18/17 10:21 Nystatin (Nystop) 100 units TP BID [facility] Stop: 11/20/17 16:59 Last Admin: 09/23/17 17:21 Dose: 100 units Prednisone (Deltasone) 15 mg PO DAILY [facility] Stop: 11/18/17 08:59 Last Admin: 09/24/17 08:15 Dose: 15 mg Quetiapine Fumarate (Seroquel) 150 mg PO HS [facility]; Protocol Stop: 11/22/17 20:59 Last Admin: 09/23/17 21:20 Dose: 150 mg Zolpidem Tartrate (Ambien) 5 mg PO HS PRN PRN Reason: Insomnia Stop: 11/17/17 22:57 Last Admin: 09/23/17 21:20 Dose: 5 mg General: alert HEENT: NC/AT, PERRLA Neck: Supple Lungs: ronchi Cardiovascular: RRR, Normal S1, Normal S2 Abdomen: soft, non-tender, non-distended Neurological: no change Internal Medicine Assmt/Plan - Assessment Assessment: copd htn hypothyroidism right hand abrasion hyperglycemia low albumin obesity - Plan Plan: elevated bilateral lower extremity with 2 pillows supplemental oxygen as needed bronchodilators as needed monitor glucose continue current plan of care Nutritional Asmnt/Malnutr-PDOC - Dietary Evaluation Malnutrition Findings (Please click <Entered> for more info): Nutritional Asmnt/Malnutrition Start: 09/21/17 17: 29 Text: Status: Complete Freq: Protocol: Document 09/21/17 17:29 LCHENG (Rec: 09/21/17 17:36 [facility] [email or web address]) Nutritional Asmnt/Malnutrition Patient General Information Nutritional Screening Moderate Risk Diagnosis psychosis NOS Pertinent Medical Hx/Surgical Hx COPD, stroke HTN, hypothyroidism, bronchitis Subjective Information Per EMR, PO itnake 75-100%. Current Diet Order/ Nutrition Support regular Pertinent Medications pepcid, levqauin, synthroid, seroquel Pertinent Labs 09/18 glucose 174, A1c 5.8 Nutritional Hx/Data Height 5 ft 2 in Height (Calculated Centimeters) 157.5 Current Weight (lbs) 155 lb Weight (Calculated Kilograms) 70.3 Weight (Calculated Grams) 69981.8 [place] Body Weight 110 Body Mass Index (BMI) 28.3 Weight Status Overweight GI Symptoms GI Symptoms None Last BM 09/20 Difficult in: None Skin Integrity/Comment: intact Current %PO Good (75-100%) Estimated Nutritional Goals BEE in Kcals: Adj wt of IBW Calories/Kcals/Kg 25-30 adj wt 55kg Kcals Calculated 1349-1508 Protein: Adj wt of IBW Protein g/k-1.2 Protein Calculated 55-66 Fluid: ml 1375-1650ml (1ml/kcal) Nutritional Problem No current Nutrition Prob Problem N/A Malnutrition Alert Is there a minimum of two criteria No selected? Query Text:Check all the applicable criteria. A minimum of two criteria are recommended for diagnosis of either severe or non-severe malnutrition. Malnutrition Related to Morbid Obesity Malnutrition related to morbid obesity No Intervention/Recommendation Comments 1. Continue with current diet as ordered. Monitor glucose level. If glucose high, consider adding CCHO diet. 2. Monitor PO intake, wt, labs and skin integrity 3. F/U as low risk in 7 days, 09/28 Expected Outcomes/Goals Expected Outcomes/Goals 1. PO intake to meet at least 75% of nutritional needs. 2. Wt stability, skin to remain intact, labs to approach WNL.
[2017-09-24] MEDS: NYSTATIN 100000 UNITS/GM POWD TP SCH ×2 (11:00→16:53)
--- NOTE | 2017-09-24 14:53 | General Progress Note ---
Subjective - Review of Systems Service Date: 09/24/17 Objective - Results Result Diagrams: 09/24/17 09:33 09/22/17 06:57 Recent Labs: Laboratory Last Values WBC 4.7 Th/cmm (4.8-10.8) L 09/24/17 09:33 RBC 3.96 Mil/cmm (3.80-5.20) 09/24/17 09:33 Hgb 12.1 gm/dL (12-16) 09/24/17 09:33 Hct 36.0 % (41.0-60) L 09/24/17 09:33 MCV 91.0 fl (81-100) 09/24/17 09:33 MCH 30.5 pg (27.0-31.0) 09/24/17 09:33 MCHC Differential 33.5 pg (28.0-36.0) 09/24/17 09:33 RDW 16.7 % (11.5-20.0) 09/24/17 09:33 Plt Count 121 Th/cmm (150-400) L 09/24/17 09:33 MPV 7.6 fl 09/24/17 09:33 Neutrophils % 68.9 % (40.0-80.0) 09/24/17 09:33 Lymphocytes % 15.3 % (20.0-50.0) L 09/24/17 09:33 Monocytes % 12.4 % (2.0-10.0) H 09/24/17 09:33 Eosinophils % 2.6 % (0.0-5.0) 09/24/17 09:33 Basophils % 0.8 % (0.0-2.0) 09/24/17 09:33 PT 11.4 SECONDS (9.5-11.5) 09/20/17 09:10 INR 1.09 (0.5-1.4) 09/20/17 09:10 PTT (Actin FS) 22.5 SECONDS (26.0-38.0) L 09/20/17 09:10 Fibrinogen 215.0 mg/dL (200.0-400.0) 09/20/17 09:10 Plt Function Studies SEE COMMENT 09/20/17 09:10 Sodium 140 mEq/L (136-145) 09/22/17 06:57 Potassium 3.6 mEq/L (3.5-5.1) 09/22/17 06:57 Chloride 106 mEq/L (98-107) 09/22/17 06:57 Carbon Dioxide 29.2 mEq/L (21.0-31.0) 09/22/17 06:57 Anion Gap 8.4 (7.0-16.0) 09/22/17 06:57 BUN 8 mg/dL (7-25) 09/22/17 06:57 Creatinine 0.6 mg/dL (0.6-1.2) 09/22/17 06:57 Est GFR ( Amer) > 60.0 ml/min (>90) 09/22/17 06:57 Est GFR (Non-Af Amer) > 60.0 ml/min 09/22/17 06:57 BUN/Creatinine Ratio 13.3 09/22/17 06:57 Glucose 87 mg/dL (70-105) 09/22/17 06:57 Hemoglobin A1c % 5.8 % (4.0-6.0) 09/18/17 20:50 Calcium 8.2 mg/dL (8.6-10.3) L 09/22/17 06:57 Magnesium 2.0 mg/dL (1.9-2.7) 09/18/17 20:50 Total Bilirubin 0.7 mg/dL (0.3-1.0) 09/18/17 20:50 AST 28 U/L (13-39) 09/18/17 20:50 ALT 26 U/L (7-52) 09/18/17 20:50 Alkaline Phosphatase 123 U/L (34-104) H 09/18/17 20:50 Troponin I 0.04 ng/mL (0.01-0.05) 09/18/17 20:50 B-Natriuretic Peptide 31.5 pg/mL (5.0-100.0) 09/18/17 20:50 Total Protein 5.1 gm/dL (6.0-8.3) L 09/18/17 20:50 Albumin 2.7 gm/dL (3.7-5.3) L 09/18/17 20:50 Globulin 2.4 gm/dL 09/18/17 20:50 Albumin/Globulin Ratio 1.1 (1.0-1.8) 09/18/17 20:50 RPR NONREACTIVE (NONREACTIVE) 09/18/17 20:50 - Physical Exam Vitals and I&O: Vital Signs Temp 97.9 F 09/24/17 06:35 Pulse 89 09/24/17 14:06 Resp 20 09/24/17 14:06 BP 135/71 09/24/17 08:15 Pulse Ox 92 09/24/17 14:06 Intake & Output 09/23/17 09/24/17 09/24/17 18:59 06:59 18:59 Intake Total 300 Balance 300 Intake: Oral 300 Other: # Voids 2 # Bowel Movements 0 Stool Characteristics Formed Brown Active Medications: Current Medications Acetaminophen (Tylenol) 650 mg PO Q4HR PRN PRN Reason: Mild Pain / Temp above 100 Stop: 11/17/17 22:57 Acetylcysteine (Mucomyst 20%) 2 ml N Q6HR [facility] Stop: 11/20/17 17:59 Last Admin: 09/24/17 14:06 Dose: 2 ml Albuterol Sulfate (Albuterol 2.5mg/3ml Neb Ud) 2.5 mg HHN QIDRT [facility] Stop: 11/18/17 14:59 Last Admin: 09/24/17 14:06 Dose: 2.5 mg Buspirone HCl (Buspar) 20 mg PO BID [facility]; Protocol Stop: 11/20/17 08:59 Last Admin: 09/24/17 08:12 Dose: 20 mg Duloxetine HCl (Cymbalta) 60 mg PO DAILY [facility]; Protocol Stop: 11/21/17 08:59 Last Admin: 09/24/17 08:13 Dose: 60 mg Famotidine (Pepcid) 20 mg PO BID [facility] Stop: 11/18/17 08:59 Last Admin: 09/24/17 08:13 Dose: 20 mg Furosemide (Lasix) 40 mg PO DAILY [facility] Stop: 11/20/17 14:09 Last Admin: 09/24/17 08:14 Dose: 40 mg Gabapentin (Neurontin) 600 mg PO Q8H [facility] Stop: 11/18/17 05:59 Last Admin: 09/24/17 13:41 Dose: 600 mg Ipratropium [place] (Atrovent Neb 0.5mg/2.5ml) 0.5 mg IH QIDRT [facility] Stop: 11/18/17 14:59 Last Admin: 09/24/17 14:06 Dose: 0.5 mg Lamotrigine (Lamictal) 200 mg PO BID [facility]; Protocol Stop: 11/18/17 08:59 Last Admin: 09/24/17 08:14 Dose: 200 mg Levofloxacin (Levaquin) 500 mg PO DAILY [facility] Stop: 09/27/17 08:59 Last Admin: 09/24/17 08:14 Dose: 500 mg Levothyroxine Sodium (Synthroid) 0.05 mg PO QDAC [facility] Stop: 11/18/17 07:29 Last Admin: 09/24/17 06:38 Dose: 0.05 mg Lorazepam (Ativan) 0.5 mg PO Q6HR PRN; Protocol PRN Reason: Anxiety Stop: 11/21/17 10:06 Last Admin: 09/24/17 10:35 Dose: 0.5 mg Losartan Potassium (Cozaar) 25 mg PO DAILY [facility] Stop: 11/18/17 08:59 Last Admin: 09/24/17 08:15 Dose: 25 mg Miscellaneous (Probiotic Screen) 1 ea MC PRN PRN PRN Reason: PROTOCOL Stop: 11/18/17 10:21 Nystatin (Nystop) 100 units TP BID [facility] Stop: 11/20/17 16:59 Last Admin: 09/24/17 11:00 Dose: 100 units Prednisone (Deltasone) 15 mg PO DAILY [facility] Stop: 11/18/17 08:59 Last Admin: 09/24/17 08:15 Dose: 15 mg Quetiapine Fumarate (Seroquel) 150 mg PO HS [facility]; Protocol Stop: 11/22/17 20:59 Last Admin: 09/23/17 21:20 Dose: 150 mg Zolpidem Tartrate (Ambien) 5 mg PO HS PRN PRN Reason: Insomnia Stop: 11/17/17 22:57 Last Admin: 09/23/17 21:20 Dose: 5 mg General: Alert HEENT: Atraumatic Neck: Supple Cardiovascular: Regular rate Lungs: Clear to auscultation Abdomen: Bowel sounds Extremities: Other (ecchysmoses on forearms) Psych/Mental Status: Other (ecchymoses on both forearms) Assessment/Plan - Assessment Assessment: * Ecchymoses on upper extremeties forearms * Mild thrombocytopenia This is likely traumatic normal coag and plt function follow plt count 09/21: plt slightly better. no change in ecchymoses. check duplex LE 09/22: plt stable. awaiting duplex result. no change in ecchymoses 09/24: plt improving; no evidence of DVT. slight improvement of ecchymoses Nutritional Asmnt/Malnutr-PDOC - Dietary Evaluation Malnutrition Findings (Please click <Entered> for more info): Nutritional Asmnt/Malnutrition Start: 09/21/17 17: 29 Text: Status: Complete Freq: Protocol: Document 09/21/17 17:29 LCHENG (Rec: 09/21/17 17:[email or web address] Nutritional Asmnt/Malnutrition Patient General Information Nutritional Screening Moderate Risk Diagnosis psychosis NOS Pertinent Medical Hx/Surgical Hx COPD, stroke HTN, hypothyroidism, bronchitis Subjective Information Per EMR, PO itnake 75-100%. Current Diet Order/ Nutrition Support regular Pertinent Medications pepcid, levqauin, synthroid, seroquel Pertinent Labs 09/18 glucose 174, A1c 5.8 Nutritional Hx/Data Height 1.57 m Height (Calculated Centimeters) 157.5 Current Weight (lbs) 70.307 kg Weight (Calculated Kilograms) 70.3 Weight (Calculated Grams) 21836.8 [place] Body Weight 110 Body Mass Index (BMI) 28.3 Weight Status Overweight GI Symptoms GI Symptoms None Last BM 09/20 Difficult in: None Skin Integrity/Comment: intact Current %PO Good (75-100%) Estimated Nutritional Goals BEE in Kcals: Adj wt of IBW Calories/Kcals/Kg 25-30 adj wt 55kg Kcals Calculated 9790-8049 Protein: Adj wt of IBW Protein g/k-1.2 Protein Calculated 55-66 Fluid: ml 1375-1650ml (1ml/kcal) Nutritional Problem No current Nutrition Prob Problem N/A Malnutrition Alert Is there a minimum of two criteria No selected? Query Text:Check all the applicable criteria. A minimum of two criteria are recommended for diagnosis of either severe or non-severe malnutrition. Malnutrition Related to Morbid Obesity Malnutrition related to morbid obesity No Intervention/Recommendation Comments 1. Continue with current diet as ordered. Monitor glucose level. If glucose high, consider adding CCHO diet. 2. Monitor PO intake, wt, labs and skin integrity 3. F/U as low risk in 7 days, 09/28 Expected Outcomes/Goals Expected Outcomes/Goals 1. PO intake to meet at least 75% of nutritional needs. 2. Wt stability, skin to remain intact, labs to approach WNL.
--- NOTE | 2017-09-25 00:04 | Progress Notes ---
DATE: 09/24/2017 PSYCHIATRIC PROGRESS NOTE SUBJECTIVE: Staff was spoken to. The patient is interviewed. Mood is noted to be irritable. Affect is constricted. The patient's insight and judgment at this time are noted to be still impaired. Impulse control is noted to be poor. The patient has been screaming and yelling and stating that the staff are not attending to her needs right away. The patient is very demanding at this time. The patient has been on the buspirone 20 mg twice a day and gabapentin 600 mg 3 times a day and the patient is also on the duloxetine 60 mg daily. With these medications, the patient has been observed. The patient's Seroquel was increased to 150 mg yesterday because of her paranoia. PLAN: To continue the patient with supportive therapy and follow. JOB# [id number]
[2017-09-25] MEDS: Levothyroxine 0.05 Mg Tab PO SCH (06:56)
[2017-09-25] MEDS: Albuterol Nebulizer 2.5mg/3mL HHN SCH ×4 (07:09→19:57)
[2017-09-25] MEDS: Ipratropium Neb 0.5 mg/2.5 mL UD IH SCH ×4 (07:09→19:57)
[2017-09-25] MEDS: NYSTATIN 100000 UNITS/GM POWD TP SCH ×2 (08:40→16:27)
--- NOTE | 2017-09-25 13:59 | Internal Medicine Prog Note ---
Internal Medicine Subjective - Subjective Service Date: 09/25/17 Patient is:: awake Patient Complaints of:: cough Per staff patient has:: tolerating meds Internal Medicine Objective - Results Result Diagrams: 09/24/17 09:33 09/22/17 06:57 Recent Labs: Laboratory Last Values WBC 4.7 Th/cmm (4.8-10.8) L 09/24/17 09:33 RBC 3.96 Mil/cmm (3.80-5.20) 09/24/17 09:33 Hgb 12.1 gm/dL (12-16) 09/24/17 09:33 Hct 36.0 % (41.0-60) L 09/24/17 09:33 MCV 91.0 fl (81-100) 09/24/17 09:33 MCH 30.5 pg (27.0-31.0) 09/24/17 09:33 MCHC Differential 33.5 pg (28.0-36.0) 09/24/17 09:33 RDW 16.7 % (11.5-20.0) 09/24/17 09:33 Plt Count 121 Th/cmm (150-400) L 09/24/17 09:33 MPV 7.6 fl 09/24/17 09:33 Neutrophils % 68.9 % (40.0-80.0) 09/24/17 09:33 Lymphocytes % 15.3 % (20.0-50.0) L 09/24/17 09:33 Monocytes % 12.4 % (2.0-10.0) H 09/24/17 09:33 Eosinophils % 2.6 % (0.0-5.0) 09/24/17 09:33 Basophils % 0.8 % (0.0-2.0) 09/24/17 09:33 PT 11.4 SECONDS (9.5-11.5) 09/20/17 09:10 INR 1.09 (0.5-1.4) 09/20/17 09:10 PTT (Actin FS) 22.5 SECONDS (26.0-38.0) L 09/20/17 09:10 Fibrinogen 215.0 mg/dL (200.0-400.0) 09/20/17 09:10 Plt Function Studies SEE COMMENT 09/20/17 09:10 Sodium 140 mEq/L (136-145) 09/22/17 06:57 Potassium 3.6 mEq/L (3.5-5.1) 09/22/17 06:57 Chloride 106 mEq/L (98-107) 09/22/17 06:57 Carbon Dioxide 29.2 mEq/L (21.0-31.0) 09/22/17 06:57 Anion Gap 8.4 (7.0-16.0) 09/22/17 06:57 BUN 8 mg/dL (7-25) 09/22/17 06:57 Creatinine 0.6 mg/dL (0.6-1.2) 09/22/17 06:57 Est GFR ( Amer) > 60.0 ml/min (>90) 09/22/17 06:57 Est GFR (Non-Af Amer) > 60.0 ml/min 09/22/17 06:57 BUN/Creatinine Ratio 13.3 09/22/17 06:57 Glucose 87 mg/dL (70-105) 09/22/17 06:57 Hemoglobin A1c % 5.8 % (4.0-6.0) 09/18/17 20:50 Calcium 8.2 mg/dL (8.6-10.3) L 09/22/17 06:57 Magnesium 2.0 mg/dL (1.9-2.7) 09/18/17 20:50 Total Bilirubin 0.7 mg/dL (0.3-1.0) 09/18/17 20:50 AST 28 U/L (13-39) 09/18/17 20:50 ALT 26 U/L (7-52) 09/18/17 20:50 Alkaline Phosphatase 123 U/L (34-104) H 09/18/17 20:50 Troponin I 0.04 ng/mL (0.01-0.05) 09/18/17 20:50 B-Natriuretic Peptide 31.5 pg/mL (5.0-100.0) 09/18/17 20:50 Total Protein 5.1 gm/dL (6.0-8.3) L 09/18/17 20:50 Albumin 2.7 gm/dL (3.7-5.3) L 09/18/17 20:50 Globulin 2.4 gm/dL 09/18/17 20:50 Albumin/Globulin Ratio 1.1 (1.0-1.8) 09/18/17 20:50 RPR NONREACTIVE (NONREACTIVE) 09/18/17 20:50 - Physical Exam Vitals and I&O: Vital Signs Temp 97.7 F 09/25/17 06:22 Pulse 87 09/25/17 10:56 Resp 20 09/25/17 10:56 BP 104/53 09/25/17 08:39 Pulse Ox 93 09/25/17 10:56 Intake & Output 09/24/17 09/25/17 09/25/17 18:59 06:59 18:59 Intake Total 2550 420 Balance 2550 420 Intake: Oral 2550 420 Other: # Voids 5 2 # Bowel Movements 1 0 Active Medications: Current Medications Acetaminophen (Tylenol) 650 mg PO Q4HR PRN PRN Reason: Mild Pain / Temp above 100 Stop: 11/17/17 22:57 Acetylcysteine (Mucomyst 20%) 2 ml HHN Q6HR [facility] Stop: 11/20/17 17:59 Last Admin: 09/25/17 07:09 Dose: 2 ml Albuterol Sulfate (Albuterol 2.5mg/3ml Neb Ud) 2.5 mg HHN QIDRT [facility] Stop: 11/18/17 14:59 Last Admin: 09/25/17 10:56 Dose: 2.5 mg Buspirone HCl (Buspar) 20 mg PO BID [facility]; Protocol Stop: 11/20/17 08:59 Last Admin: 09/25/17 08:35 Dose: 20 mg Duloxetine HCl (Cymbalta) 60 mg PO DAILY [facility]; Protocol Stop: 11/21/17 08:59 Last Admin: 09/25/17 08:57 Dose: 60 mg Famotidine (Pepcid) 20 mg PO BID [facility] Stop: 11/18/17 08:59 Last Admin: 09/25/17 13:49 Dose: 20 mg Furosemide (Lasix) 40 mg PO DAILY [facility] Stop: 11/20/17 14:09 Last Admin: 09/25/17 08:37 Dose: Not Given Gabapentin (Neurontin) 600 mg PO Q8H [facility] Stop: 11/18/17 05:59 Last Admin: 09/25/17 13:30 Dose: 600 mg Ipratropium [place] (Atrovent Neb 0.5mg/2.5ml) 0.5 mg IH QIDRT [facility] Stop: 11/18/17 14:59 Last Admin: 09/25/17 10:56 Dose: 0.5 mg Lamotrigine (Lamictal) 200 mg PO BID [facility]; Protocol Stop: 11/18/17 08:59 Last Admin: 09/25/17 08:38 Dose: 200 mg Levofloxacin (Levaquin) 500 mg PO DAILY [facility] Stop: 09/27/17 08:59 Last Admin: 09/25/17 08:39 Dose: 500 mg Levothyroxine Sodium (Synthroid) 0.05 mg PO QDAC [facility] Stop: 11/18/17 07:29 Last Admin: 09/25/17 06:56 Dose: 0.05 mg Lorazepam (Ativan) 0.5 mg PO Q6HR PRN; Protocol PRN Reason: Anxiety Stop: 11/21/17 10:06 Last Admin: 09/25/17 12:08 Dose: 0.5 mg Losartan Potassium (Cozaar) 25 mg PO DAILY [facility] Stop: 11/18/17 08:59 Last Admin: 09/25/17 08:39 Dose: Not Given Miscellaneous (Probiotic Screen) 1 ea MC PRN PRN PRN Reason: PROTOCOL Stop: 11/18/17 10:21 Nystatin (Nystop) 100 units TP BID [facility] Stop: 11/20/17 16:59 Last Admin: 09/25/17 08:40 Dose: 100 units Prednisone (Deltasone) 15 mg PO DAILY [facility] Stop: 11/18/17 08:59 Last Admin: 09/25/17 08:36 Dose: 15 mg Quetiapine Fumarate (Seroquel) 150 mg PO HS [facility]; Protocol Stop: 11/22/17 20:59 Last Admin: 09/24/17 21:55 Dose: 150 mg Zolpidem Tartrate (Ambien) 5 mg PO HS PRN PRN Reason: Insomnia Stop: 11/17/17 22:57 Last Admin: 09/24/17 21:55 Dose: 5 mg General: alert HEENT: NC/AT, PERRLA Neck: Supple Lungs: ronchi Cardiovascular: RRR, Normal S1, Normal S2 Abdomen: soft, non-tender, non-distended Neurological: no change Internal Medicine Assmt/Plan - Assessment Assessment: copd htn hypothyroidism right hand abrasion hyperglycemia low albumin obesity - Plan Plan: elevated bilateral lower extremity with 2 pillows supplemental oxygen as needed bronchodilators as needed monitor glucose continue current plan of care Nutritional Asmnt/Malnutr-PDOC - Dietary Evaluation Malnutrition Findings (Please click <Entered> for more info): Nutritional Asmnt/Malnutrition Start: 09/21/17 17: 29 Text: Status: Complete Freq: Protocol: Document 09/21/17 17:29 ALLI (Rec: 09/21/17 17:36 [email or web address] Nutritional Asmnt/Malnutrition Patient General Information Nutritional Screening Moderate Risk Diagnosis psychosis NOS Pertinent Medical Hx/Surgical Hx COPD, stroke HTN, hypothyroidism, bronchitis Subjective Information Per EMR, PO itnake 75-100%. Current Diet Order/ Nutrition Support regular Pertinent Medications pepcid, levqauin, synthroid, seroquel Pertinent Labs 09/18 glucose 174, A1c 5.8 Nutritional Hx/Data Height 5 ft 2 in Height (Calculated Centimeters) 157.5 Current Weight (lbs) 155 lb Weight (Calculated Kilograms) 70.3 Weight (Calculated Grams) 00701.8 [place] Body Weight 110 Body Mass Index (BMI) 28.3 Weight Status Overweight GI Symptoms GI Symptoms None Last BM 09/20 Difficult in: None Skin Integrity/Comment: intact Current %PO Good (75-100%) Estimated Nutritional Goals BEE in Kcals: Adj wt of IBW Calories/Kcals/Kg 25-30 adj wt 55kg Kcals Calculated 7612-3661 Protein: Adj wt of IBW Protein g/k-1.2 Protein Calculated 55-66 Fluid: ml 1375-1650ml (1ml/kcal) Nutritional Problem No current Nutrition Prob Problem N/A Malnutrition Alert Is there a minimum of two criteria No selected? Query Text:Check all the applicable criteria. A minimum of two criteria are recommended for diagnosis of either severe or non-severe malnutrition. Malnutrition Related to Morbid Obesity Malnutrition related to morbid obesity No Intervention/Recommendation Comments 1. Continue with current diet as ordered. Monitor glucose level. If glucose high, consider adding CCHO diet. 2. Monitor PO intake, wt, labs and skin integrity 3. F/U as low risk in 7 days, 09/28 Expected Outcomes/Goals Expected Outcomes/Goals 1. PO intake to meet at least 75% of nutritional needs. 2. Wt stability, skin to remain intact, labs to approach WNL.
--- NOTE | 2017-09-25 15:37 | General Progress Note ---
Subjective - Review of Systems Service Date: 09/25/17 Objective - Results Result Diagrams: 09/24/17 09:33 09/22/17 06:57 Recent Labs: Laboratory Last Values WBC 4.7 Th/cmm (4.8-10.8) L 09/24/17 09:33 RBC 3.96 Mil/cmm (3.80-5.20) 09/24/17 09:33 Hgb 12.1 gm/dL (12-16) 09/24/17 09:33 Hct 36.0 % (41.0-60) L 09/24/17 09:33 MCV 91.0 fl (81-100) 09/24/17 09:33 MCH 30.5 pg (27.0-31.0) 09/24/17 09:33 MCHC Differential 33.5 pg (28.0-36.0) 09/24/17 09:33 RDW 16.7 % (11.5-20.0) 09/24/17 09:33 Plt Count 121 Th/cmm (150-400) L 09/24/17 09:33 MPV 7.6 fl 09/24/17 09:33 Neutrophils % 68.9 % (40.0-80.0) 09/24/17 09:33 Lymphocytes % 15.3 % (20.0-50.0) L 09/24/17 09:33 Monocytes % 12.4 % (2.0-10.0) H 09/24/17 09:33 Eosinophils % 2.6 % (0.0-5.0) 09/24/17 09:33 Basophils % 0.8 % (0.0-2.0) 09/24/17 09:33 PT 11.4 SECONDS (9.5-11.5) 09/20/17 09:10 INR 1.09 (0.5-1.4) 09/20/17 09:10 PTT (Actin FS) 22.5 SECONDS (26.0-38.0) L 09/20/17 09:10 Fibrinogen 215.0 mg/dL (200.0-400.0) 09/20/17 09:10 Plt Function Studies SEE COMMENT 09/20/17 09:10 Sodium 140 mEq/L (136-145) 09/22/17 06:57 Potassium 3.6 mEq/L (3.5-5.1) 09/22/17 06:57 Chloride 106 mEq/L (98-107) 09/22/17 06:57 Carbon Dioxide 29.2 mEq/L (21.0-31.0) 09/22/17 06:57 Anion Gap 8.4 (7.0-16.0) 09/22/17 06:57 BUN 8 mg/dL (7-25) 09/22/17 06:57 Creatinine 0.6 mg/dL (0.6-1.2) 09/22/17 06:57 Est GFR ( Amer) > 60.0 ml/min (>90) 09/22/17 06:57 Est GFR (Non-Af Amer) > 60.0 ml/min 09/22/17 06:57 BUN/Creatinine Ratio 13.3 09/22/17 06:57 Glucose 87 mg/dL (70-105) 09/22/17 06:57 Hemoglobin A1c % 5.8 % (4.0-6.0) 09/18/17 20:50 Calcium 8.2 mg/dL (8.6-10.3) L 09/22/17 06:57 Magnesium 2.0 mg/dL (1.9-2.7) 09/18/17 20:50 Total Bilirubin 0.7 mg/dL (0.3-1.0) 09/18/17 20:50 AST 28 U/L (13-39) 09/18/17 20:50 ALT 26 U/L (7-52) 09/18/17 20:50 Alkaline Phosphatase 123 U/L (34-104) H 09/18/17 20:50 Troponin I 0.04 ng/mL (0.01-0.05) 09/18/17 20:50 B-Natriuretic Peptide 31.5 pg/mL (5.0-100.0) 09/18/17 20:50 Total Protein 5.1 gm/dL (6.0-8.3) L 09/18/17 20:50 Albumin 2.7 gm/dL (3.7-5.3) L 09/18/17 20:50 Globulin 2.4 gm/dL 09/18/17 20:50 Albumin/Globulin Ratio 1.1 (1.0-1.8) 09/18/17 20:50 RPR NONREACTIVE (NONREACTIVE) 09/18/17 20:50 - Physical Exam Vitals and I&O: Vital Signs Temp 97.7 F 09/25/17 06:22 Pulse 89 09/25/17 14:02 Resp 20 09/25/17 14:02 BP 104/53 09/25/17 08:39 Pulse Ox 91 09/25/17 14:02 Intake & Output 09/24/17 09/25/17 09/25/17 18:59 06:59 18:59 Intake Total 2550 420 Balance 2550 420 Intake: Oral 2550 420 Other: # Voids 5 2 # Bowel Movements 1 0 Active Medications: Current Medications Acetaminophen (Tylenol) 650 mg PO Q4HR PRN PRN Reason: Mild Pain / Temp above 100 Stop: 11/17/17 22:57 Acetylcysteine (Mucomyst 20%) 2 ml HHN Q6HR [facility] Stop: 11/20/17 17:59 Last Admin: 09/25/17 14:02 Dose: 2 ml Albuterol Sulfate (Albuterol 2.5mg/3ml Neb Ud) 2.5 mg HHN QIDRT [facility] Stop: 11/18/17 14:59 Last Admin: 09/25/17 14:02 Dose: 2.5 mg Buspirone HCl (Buspar) 20 mg PO BID [facility]; Protocol Stop: 11/20/17 08:59 Last Admin: 09/25/17 08:35 Dose: 20 mg Duloxetine HCl (Cymbalta) 60 mg PO DAILY [facility]; Protocol Stop: 11/21/17 08:59 Last Admin: 09/25/17 08:57 Dose: 60 mg Famotidine (Pepcid) 20 mg PO BID [facility] Stop: 11/18/17 08:59 Last Admin: 09/25/17 13:49 Dose: 20 mg Furosemide (Lasix) 40 mg PO DAILY [facility] Stop: 11/20/17 14:09 Last Admin: 09/25/17 08:37 Dose: Not Given Gabapentin (Neurontin) 600 mg PO Q8H [facility] Stop: 11/18/17 05:59 Last Admin: 09/25/17 13:30 Dose: 600 mg Ipratropium [place] (Atrovent Neb 0.5mg/2.5ml) 0.5 mg IH QIDRT [facility] Stop: 11/18/17 14:59 Last Admin: 09/25/17 14:02 Dose: 0.5 mg Lamotrigine (Lamictal) 200 mg PO BID [facility]; Protocol Stop: 11/18/17 08:59 Last Admin: 09/25/17 08:38 Dose: 200 mg Levofloxacin (Levaquin) 500 mg PO DAILY [facility] Stop: 09/27/17 08:59 Last Admin: 09/25/17 08:39 Dose: 500 mg Levothyroxine Sodium (Synthroid) 0.05 mg PO QDAC [facility] Stop: 11/18/17 07:29 Last Admin: 09/25/17 06:56 Dose: 0.05 mg Lorazepam (Ativan) 0.5 mg PO Q6HR PRN; Protocol PRN Reason: Anxiety Stop: 11/21/17 10:06 Last Admin: 09/25/17 12:08 Dose: 0.5 mg Losartan Potassium (Cozaar) 25 mg PO DAILY [facility] Stop: 11/18/17 08:59 Last Admin: 09/25/17 08:39 Dose: Not Given Miscellaneous (Probiotic Screen) 1 ea MC PRN PRN PRN Reason: PROTOCOL Stop: 11/18/17 10:21 Nystatin (Nystop) 100 units TP BID [facility] Stop: 11/20/17 16:59 Last Admin: 09/25/17 08:40 Dose: 100 units Prednisone (Deltasone) 15 mg PO DAILY [facility] Stop: 11/18/17 08:59 Last Admin: 09/25/17 08:36 Dose: 15 mg Quetiapine Fumarate (Seroquel) 150 mg PO HS [facility]; Protocol Stop: 11/22/17 20:59 Last Admin: 09/24/17 21:55 Dose: 150 mg Zolpidem Tartrate (Ambien) 5 mg PO HS PRN PRN Reason: Insomnia Stop: 11/17/17 22:57 Last Admin: 09/24/17 21:55 Dose: 5 mg General: Alert HEENT: Atraumatic Neck: Supple Cardiovascular: Regular rate Lungs: Clear to auscultation Abdomen: Bowel sounds Extremities: Other (ecchysmoses on forearms) Psych/Mental Status: Other (ecchymoses on both forearms) Assessment/Plan - Assessment Assessment: * Ecchymoses on upper extremeties forearms * Mild thrombocytopenia This is likely traumatic normal coag and plt function follow plt count 09/21: plt slightly better. no change in ecchymoses. check duplex LE 09/22: plt stable. awaiting duplex result. no change in ecchymoses 09/24: plt improving; no evidence of DVT. slight improvement of ecchymoses 09/25: leg edema better; no changes in ecchymoses on forearms Nutritional Asmnt/Malnutr-PDOC - Dietary Evaluation Malnutrition Findings (Please click <Entered> for more info): Nutritional Asmnt/Malnutrition Start: 09/21/17 17: 29 Text: Status: Complete Freq: Protocol: Document 09/21/17 17:29 LCJESSICAG (Rec: 09/21/17 17:36 [email or web address]) Nutritional Asmnt/Malnutrition Patient General Information Nutritional Screening Moderate Risk Diagnosis psychosis NOS Pertinent Medical Hx/Surgical Hx COPD, stroke HTN, hypothyroidism, bronchitis Subjective Information Per EMR, PO itnake 75-100%. Current Diet Order/ Nutrition Support regular Pertinent Medications pepcid, levqauin, synthroid, seroquel Pertinent Labs 09/18 glucose 174, A1c 5.8 Nutritional Hx/Data Height 1.57 m Height (Calculated Centimeters) 157.5 Current Weight (lbs) 70.307 kg Weight (Calculated Kilograms) 70.3 Weight (Calculated Grams) 42756.8 [place] Body Weight 110 Body Mass Index (BMI) 28.3 Weight Status Overweight GI Symptoms GI Symptoms None Last BM 09/20 Difficult in: None Skin Integrity/Comment: intact Current %PO Good (75-100%) Estimated Nutritional Goals BEE in Kcals: Adj wt of IBW Calories/Kcals/Kg 25-30 adj wt 55kg Kcals Calculated 0355-1228 Protein: Adj wt of IBW Protein g/k-1.2 Protein Calculated 55-66 Fluid: ml 1375-1650ml (1ml/kcal) Nutritional Problem No current Nutrition Prob Problem N/A Malnutrition Alert Is there a minimum of two criteria No selected? Query Text:Check all the applicable criteria. A minimum of two criteria are recommended for diagnosis of either severe or non-severe malnutrition. Malnutrition Related to Morbid Obesity Malnutrition related to morbid obesity No Intervention/Recommendation Comments 1. Continue with current diet as ordered. Monitor glucose level. If glucose high, consider adding CCHO diet. 2. Monitor PO intake, wt, labs and skin integrity 3. F/U as low risk in 7 days, 09/28 Expected Outcomes/Goals Expected Outcomes/Goals 1. PO intake to meet at least 75% of nutritional needs. 2. Wt stability, skin to remain intact, labs to approach WNL.
--- NOTE | 2017-09-25 22:26 | Progress Notes ---
DATE: 09/25/2017 SUBJECTIVE: Staff was spoken to. The patient is interviewed. Mood is noted to be irritable. Affect is constricted. The patient is still very demanding. Coping skills are noted to be poor. The patient has been stating that she is frustrated that she is not getting her medications on time. The patient has been encouraged to verbalize the concerns rather than to act out. No side effects to the medications are noted. The patient is currently on buspirone, duloxetine, and Seroquel. The patient has been able to tolerate. ASSESSMENT: The patient is still depressed and psychotic. PLAN: To continue the patient with the supportive therapy and followup. JOB# [id number]
[2017-09-26 06:48] LABS: % BASOPHILS 1.1 % (0.0-2.0); % EOSINOPHILS 3.7 % (0.0-5.0); % MONOCYTES 10.6 % (2.0-10.0); % NEUTROPHILS 60.6 % (40.0-80.0); EOSINOPHILE ABSOLUTE 0.1 Th/cmm (0.1-0.4); HEMATOCRIT 35.5 % (41.0-60); HEMOGLOBIN 11.9 gm/dL (12-16); LYMPHOCYTE ABSOLUTE 0.8 Th/cmm (1.5-3.0); MEAN CELL VOLUME 91.3 fl (81-100); MEAN CORPUSCULAR HEMOGLOBIN 30.5 pg (27.0-31.0); MEAN CORPUSCULAR HGB CONC 33.4 pg (28.0-36.0); MEAN PLATELET VOLUME 7.3 fl; MONOCYTE ABSOLUTE 0.4 Th/cmm (0.3-1.0); NEUTROPHILE ABSOLUTE 2.1 Th/cmm (1.8-8.0); PLATELET COUNT 108 Th/cmm (150-400); RED BLOOD COUNT 3.89 Mil/cmm (3.80-5.20); RED CELL DISTRIBUTION WIDTH 17.1 % (11.5-20.0)
[2017-09-26 06:50] LABS: WHITE BLOOD COUNT 3.4 Th/cmm (4.8-10.8)
[2017-09-26] MEDS: Levothyroxine 0.05 Mg Tab PO SCH (06:52)
[2017-09-26] MEDS: Ipratropium Neb 0.5 mg/2.5 mL UD IH SCH ×4 (07:26→19:49)
[2017-09-26] MEDS: Albuterol Nebulizer 2.5mg/3mL HHN SCH ×4 (07:26→19:49)
--- NOTE | 2017-09-26 15:43 | Internal Medicine Prog Note ---
Internal Medicine Subjective - Subjective Service Date: 09/26/17 Patient is:: awake Patient Complaints of:: cough Per staff patient has:: tolerating meds Internal Medicine Objective - Results Result Diagrams: 09/26/17 06:30 09/22/17 06:57 Recent Labs: Laboratory Last Values WBC 3.4 Th/cmm (4.8-10.8) L 09/26/17 06:30 RBC 3.89 Mil/cmm (3.80-5.20) 09/26/17 06:30 Hgb 11.9 gm/dL (12-16) L 09/26/17 06:30 Hct 35.5 % (41.0-60) L 09/26/17 06:30 MCV 91.3 fl (81-100) 09/26/17 06:30 MCH 30.5 pg (27.0-31.0) 09/26/17 06:30 MCHC Differential 33.4 pg (28.0-36.0) 09/26/17 06:30 RDW 17.1 % (11.5-20.0) 09/26/17 06:30 Plt Count 108 Th/cmm (150-400) L 09/26/17 06:30 MPV 7.3 fl 09/26/17 06:30 Neutrophils % 60.6 % (40.0-80.0) 09/26/17 06:30 Lymphocytes % 24.0 % (20.0-50.0) 09/26/17 06:30 Monocytes % 10.6 % (2.0-10.0) H 09/26/17 06:30 Eosinophils % 3.7 % (0.0-5.0) 09/26/17 06:30 Basophils % 1.1 % (0.0-2.0) 09/26/17 06:30 PT 11.4 SECONDS (9.5-11.5) 09/20/17 09:10 INR 1.09 (0.5-1.4) 09/20/17 09:10 PTT (Actin FS) 22.5 SECONDS (26.0-38.0) L 09/20/17 09:10 Fibrinogen 215.0 mg/dL (200.0-400.0) 09/20/17 09:10 Plt Function Studies SEE COMMENT 09/20/17 09:10 Sodium 140 mEq/L (136-145) 09/22/17 06:57 Potassium 3.6 mEq/L (3.5-5.1) 09/22/17 06:57 Chloride 106 mEq/L (98-107) 09/22/17 06:57 Carbon Dioxide 29.2 mEq/L (21.0-31.0) 09/22/17 06:57 Anion Gap 8.4 (7.0-16.0) 09/22/17 06:57 BUN 8 mg/dL (7-25) 09/22/17 06:57 Creatinine 0.6 mg/dL (0.6-1.2) 09/22/17 06:57 Est GFR ( Amer) > 60.0 ml/min (>90) 09/22/17 06:57 Est GFR (Non-Af Amer) > 60.0 ml/min 09/22/17 06:57 BUN/Creatinine Ratio 13.3 09/22/17 06:57 Glucose 87 mg/dL (70-105) 09/22/17 06:57 Hemoglobin A1c % 5.8 % (4.0-6.0) 09/18/17 20:50 Calcium 8.2 mg/dL (8.6-10.3) L 09/22/17 06:57 Magnesium 2.0 mg/dL (1.9-2.7) 09/18/17 20:50 Total Bilirubin 0.7 mg/dL (0.3-1.0) 09/18/17 20:50 AST 28 U/L (13-39) 09/18/17 20:50 ALT 26 U/L (7-52) 09/18/17 20:50 Alkaline Phosphatase 123 U/L (34-104) H 09/18/17 20:50 Troponin I 0.04 ng/mL (0.01-0.05) 09/18/17 20:50 B-Natriuretic Peptide 31.5 pg/mL (5.0-100.0) 09/18/17 20:50 Total Protein 5.1 gm/dL (6.0-8.3) L 09/18/17 20:50 Albumin 2.7 gm/dL (3.7-5.3) L 09/18/17 20:50 Globulin 2.4 gm/dL 09/18/17 20:50 Albumin/Globulin Ratio 1.1 (1.0-1.8) 09/18/17 20:50 RPR NONREACTIVE (NONREACTIVE) 09/18/17 20:50 - Physical Exam Vitals and I&O: Vital Signs Temp 98.2 F 09/26/17 06:17 Pulse 71 09/26/17 15:35 Resp 20 09/26/17 15:35 BP 116/60 09/26/17 09:24 Pulse Ox 93 09/26/17 15:35 Intake & Output 09/25/17 09/26/17 09/26/17 18:59 06:59 18:59 Intake Total 1600 420 Balance 1600 420 Intake: Oral 1600 420 Other: # Voids 3 2 # Bowel Movements 0 Active Medications: Current Medications Acetaminophen (Tylenol) 650 mg PO Q4HR PRN PRN Reason: Mild Pain / Temp above 100 Stop: 11/17/17 22:57 Last Admin: 09/25/17 21:15 Dose: 650 mg Acetylcysteine (Mucomyst 20%) 2 ml HHN Q6HR [facility] Stop: 11/20/17 17:59 Last Admin: 09/26/17 15:34 Dose: 2 ml Albuterol Sulfate (Albuterol 2.5mg/3ml Neb Ud) 2.5 mg HHN QIDRT [facility] Stop: 11/18/17 14:59 Last Admin: 09/26/17 15:28 Dose: 2.5 mg Buspirone HCl (Buspar) 20 mg PO BID [facility]; Protocol Stop: 11/20/17 08:59 Last Admin: 09/26/17 09:20 Dose: 20 mg Duloxetine HCl (Cymbalta) 60 mg PO DAILY [facility]; Protocol Stop: 11/21/17 08:59 Last Admin: 09/26/17 09:25 Dose: 60 mg Famotidine (Pepcid) 20 mg PO BID [facility] Stop: 11/18/17 08:59 Last Admin: 09/26/17 09:21 Dose: 20 mg Furosemide (Lasix) 40 mg PO DAILY [facility] Stop: 11/20/17 14:09 Last Admin: 09/26/17 09:24 Dose: 40 mg Gabapentin (Neurontin) 600 mg PO Q8H [facility] Stop: 11/18/17 05:59 Last Admin: 09/26/17 06:52 Dose: 600 mg Ipratropium [place] (Atrovent Neb 0.5mg/2.5ml) 0.5 mg IH QIDRT [facility] Stop: 11/18/17 14:59 Last Admin: 09/26/17 15:28 Dose: 0.5 mg Lamotrigine (Lamictal) 200 mg PO BID [facility]; Protocol Stop: 11/18/17 08:59 Last Admin: 09/26/17 09:22 Dose: 200 mg Levothyroxine Sodium (Synthroid) 0.05 mg PO QDAC [facility] Stop: 11/18/17 07:29 Last Admin: 09/26/17 06:52 Dose: 0.05 mg Lorazepam (Ativan) 0.5 mg PO Q6HR PRN; Protocol PRN Reason: Anxiety Stop: 11/21/17 10:06 Last Admin: 09/26/17 09:25 Dose: 0.5 mg Losartan Potassium (Cozaar) 25 mg PO DAILY [facility] Stop: 11/18/17 08:59 Last Admin: 09/26/17 09:24 Dose: 25 mg Miscellaneous (Probiotic Screen) 1 ea MC PRN PRN PRN Reason: PROTOCOL Stop: 11/18/17 10:21 Nystatin (Nystop) 100 units TP BID [facility] Stop: 11/20/17 16:59 Last Admin: 09/25/17 16:27 Dose: 100 units Prednisone (Deltasone) 15 mg PO DAILY [facility] Stop: 11/18/17 08:59 Last Admin: 09/26/17 09:23 Dose: 15 mg Quetiapine Fumarate (Seroquel) 150 mg PO HS [facility]; Protocol Stop: 11/22/17 20:59 Last Admin: 09/25/17 21:16 Dose: 150 mg Zolpidem Tartrate (Ambien) 5 mg PO HS PRN PRN Reason: Insomnia Stop: 11/17/17 22:57 Last Admin: 09/24/17 21:55 Dose: 5 mg General: alert HEENT: NC/AT, PERRLA Neck: Supple Lungs: ronchi Cardiovascular: RRR, Normal S1, Normal S2 Abdomen: soft, non-tender, non-distended Neurological: no change Internal Medicine Assmt/Plan - Assessment Assessment: copd htn hypothyroidism right hand abrasion hyperglycemia low albumin obesity - Plan Plan: supplemental oxygen as needed bronchodilators as needed monitor glucose continue current plan of care Nutritional Asmnt/Malnutr-PDOC - Dietary Evaluation Malnutrition Findings (Please click <Entered> for more info): Nutritional Asmnt/Malnutrition Start: 09/21/17 17: 29 Text: Status: Complete Freq: Protocol: Document 09/21/17 17:29 LCJESSICAG (Rec: 09/21/17 17:36 [email or web address]) Nutritional Asmnt/Malnutrition Patient General Information Nutritional Screening Moderate Risk Diagnosis psychosis NOS Pertinent Medical Hx/Surgical Hx COPD, stroke HTN, hypothyroidism, bronchitis Subjective Information Per EMR, PO itnake 75-100%. Current Diet Order/ Nutrition Support regular Pertinent Medications pepcid, levqauin, synthroid, seroquel Pertinent Labs 09/18 glucose 174, A1c 5.8 Nutritional Hx/Data Height 5 ft 2 in Height (Calculated Centimeters) 157.5 Current Weight (lbs) 155 lb Weight (Calculated Kilograms) 70.3 Weight (Calculated Grams) 46968.8 [place] Body Weight 110 Body Mass Index (BMI) 28.3 Weight Status Overweight GI Symptoms GI Symptoms None Last BM 09/20 Difficult in: None Skin Integrity/Comment: intact Current %PO Good (75-100%) Estimated Nutritional Goals BEE in Kcals: Adj wt of IBW Calories/Kcals/Kg 25-30 adj wt 55kg Kcals Calculated 8575-7311 Protein: Adj wt of IBW Protein g/k-1.2 Protein Calculated 55-66 Fluid: ml 1375-1650ml (1ml/kcal) Nutritional Problem No current Nutrition Prob Problem N/A Malnutrition Alert Is there a minimum of two criteria No selected? Query Text:Check all the applicable criteria. A minimum of two criteria are recommended for diagnosis of either severe or non-severe malnutrition. Malnutrition Related to Morbid Obesity Malnutrition related to morbid obesity No Intervention/Recommendation Comments 1. Continue with current diet as ordered. Monitor glucose level. If glucose high, consider adding CCHO diet. 2. Monitor PO intake, wt, labs and skin integrity 3. F/U as low risk in 7 days, 68 Expected Outcomes/Goals Expected Outcomes/Goals 1. PO intake to meet at least 75% of nutritional needs. 2. Wt stability, skin to remain intact, labs to approach WNL.
--- NOTE | 2017-09-26 17:04 | General Progress Note ---
Subjective - Review of Systems Service Date: 09/26/17 Subjective: awake, ambulatory Objective - Results Result Diagrams: 09/26/17 06:30 09/22/17 06:57 Recent Labs: Laboratory Last Values WBC 3.4 Th/cmm (4.8-10.8) L 09/26/17 06:30 RBC 3.89 Mil/cmm (3.80-5.20) 09/26/17 06:30 Hgb 11.9 gm/dL (12-16) L 09/26/17 06:30 Hct 35.5 % (41.0-60) L 09/26/17 06:30 MCV 91.3 fl (81-100) 09/26/17 06:30 MCH 30.5 pg (27.0-31.0) 09/26/17 06:30 MCHC Differential 33.4 pg (28.0-36.0) 09/26/17 06:30 RDW 17.1 % (11.5-20.0) 09/26/17 06:30 Plt Count 108 Th/cmm (150-400) L 09/26/17 06:30 MPV 7.3 fl 09/26/17 06:30 Neutrophils % 60.6 % (40.0-80.0) 09/26/17 06:30 Lymphocytes % 24.0 % (20.0-50.0) 09/26/17 06:30 Monocytes % 10.6 % (2.0-10.0) H 09/26/17 06:30 Eosinophils % 3.7 % (0.0-5.0) 09/26/17 06:30 Basophils % 1.1 % (0.0-2.0) 09/26/17 06:30 PT 11.4 SECONDS (9.5-11.5) 09/20/17 09:10 INR 1.09 (0.5-1.4) 09/20/17 09:10 PTT (Actin FS) 22.5 SECONDS (26.0-38.0) L 09/20/17 09:10 Fibrinogen 215.0 mg/dL (200.0-400.0) 09/20/17 09:10 Plt Function Studies SEE COMMENT 09/20/17 09:10 Sodium 140 mEq/L (136-145) 09/22/17 06:57 Potassium 3.6 mEq/L (3.5-5.1) 09/22/17 06:57 Chloride 106 mEq/L (98-107) 09/22/17 06:57 Carbon Dioxide 29.2 mEq/L (21.0-31.0) 09/22/17 06:57 Anion Gap 8.4 (7.0-16.0) 09/22/17 06:57 BUN 8 mg/dL (7-25) 09/22/17 06:57 Creatinine 0.6 mg/dL (0.6-1.2) 09/22/17 06:57 Est GFR ( Amer) > 60.0 ml/min (>90) 09/22/17 06:57 Est GFR (Non-Af Amer) > 60.0 ml/min 09/22/17 06:57 BUN/Creatinine Ratio 13.3 09/22/17 06:57 Glucose 87 mg/dL (70-105) 09/22/17 06:57 Hemoglobin A1c % 5.8 % (4.0-6.0) 09/18/17 20:50 Calcium 8.2 mg/dL (8.6-10.3) L 09/22/17 06:57 Magnesium 2.0 mg/dL (1.9-2.7) 09/18/17 20:50 Total Bilirubin 0.7 mg/dL (0.3-1.0) 09/18/17 20:50 AST 28 U/L (13-39) 09/18/17 20:50 ALT 26 U/L (7-52) 09/18/17 20:50 Alkaline Phosphatase 123 U/L (34-104) H 09/18/17 20:50 Troponin I 0.04 ng/mL (0.01-0.05) 09/18/17 20:50 B-Natriuretic Peptide 31.5 pg/mL (5.0-100.0) 09/18/17 20:50 Total Protein 5.1 gm/dL (6.0-8.3) L 09/18/17 20:50 Albumin 2.7 gm/dL (3.7-5.3) L 09/18/17 20:50 Globulin 2.4 gm/dL 09/18/17 20:50 Albumin/Globulin Ratio 1.1 (1.0-1.8) 09/18/17 20:50 RPR NONREACTIVE (NONREACTIVE) 09/18/17 20:50 - Physical Exam Vitals and I&O: Vital Signs Temp 98.4 F 09/26/17 15:45 Pulse 94 09/26/17 15:45 Resp 20 09/26/17 15:45 BP 152/80 09/26/17 15:45 Pulse Ox 98 09/26/17 15:45 Intake & Output 09/25/17 09/26/17 09/26/17 18:59 06:59 18:59 Intake Total 1600 420 Balance 1600 420 Intake: Oral 1600 420 Other: # Voids 3 2 # Bowel Movements 0 Active Medications: Current Medications Acetaminophen (Tylenol) 650 mg PO Q4HR PRN PRN Reason: Mild Pain / Temp above 100 Stop: 11/17/17 22:57 Last Admin: 09/25/17 21:15 Dose: 650 mg Acetylcysteine (Mucomyst 20%) 2 ml HHN Q6HR [facility] Stop: 11/20/17 17:59 Last Admin: 09/26/17 15:34 Dose: 2 ml Albuterol Sulfate (Albuterol 2.5mg/3ml Neb Ud) 2.5 mg HHN QIDRT [facility] Stop: 11/18/17 14:59 Last Admin: 09/26/17 15:28 Dose: 2.5 mg Buspirone HCl (Buspar) 20 mg PO BID [facility]; Protocol Stop: 11/20/17 08:59 Last Admin: 09/26/17 09:20 Dose: 20 mg Duloxetine HCl (Cymbalta) 60 mg PO DAILY [facility]; Protocol Stop: 11/21/17 08:59 Last Admin: 09/26/17 09:25 Dose: 60 mg Famotidine (Pepcid) 20 mg PO BID [facility] Stop: 11/18/17 08:59 Last Admin: 09/26/17 09:21 Dose: 20 mg Furosemide (Lasix) 40 mg PO DAILY [facility] Stop: 11/20/17 14:09 Last Admin: 09/26/17 09:24 Dose: 40 mg Gabapentin (Neurontin) 600 mg PO Q8H [facility] Stop: 11/18/17 05:59 Last Admin: 09/26/17 16:45 Dose: Not Given Ipratropium [place] (Atrovent Neb 0.5mg/2.5ml) 0.5 mg IH QIDRT [facility] Stop: 11/18/17 14:59 Last Admin: 09/26/17 15:28 Dose: 0.5 mg Lamotrigine (Lamictal) 200 mg PO BID [facility]; Protocol Stop: 11/18/17 08:59 Last Admin: 09/26/17 09:22 Dose: 200 mg Levothyroxine Sodium (Synthroid) 0.05 mg PO QDAC [facility] Stop: 11/18/17 07:29 Last Admin: 09/26/17 06:52 Dose: 0.05 mg Lorazepam (Ativan) 0.5 mg PO Q6HR PRN; Protocol PRN Reason: Anxiety Stop: 11/21/17 10:06 Last Admin: 09/26/17 09:25 Dose: 0.5 mg Losartan Potassium (Cozaar) 25 mg PO DAILY [facility] Stop: 11/18/17 08:59 Last Admin: 09/26/17 09:24 Dose: 25 mg Miscellaneous (Probiotic Screen) 1 ea MC PRN PRN PRN Reason: PROTOCOL Stop: 11/18/17 10:21 Nystatin (Nystop) 100 units TP BID [facility] Stop: 11/20/17 16:59 Last Admin: 09/25/17 16:27 Dose: 100 units Prednisone (Deltasone) 15 mg PO DAILY [facility] Stop: 11/18/17 08:59 Last Admin: 09/26/17 09:23 Dose: 15 mg Quetiapine Fumarate (Seroquel) 150 mg PO HS [facility]; Protocol Stop: 11/22/17 20:59 Last Admin: 09/25/17 21:16 Dose: 150 mg Zolpidem Tartrate (Ambien) 5 mg PO HS PRN PRN Reason: Insomnia Stop: 11/17/17 22:57 Last Admin: 09/24/17 21:55 Dose: 5 mg General: Alert HEENT: Atraumatic Neck: Supple Cardiovascular: Regular rate Lungs: Clear to auscultation Abdomen: Bowel sounds Extremities: Other (ecchysmoses on forearms) Psych/Mental Status: Other (ecchymoses on both forearms) Assessment/Plan - Assessment Assessment: * Ecchymoses on upper extremeties forearms * Mild thrombocytopenia This is likely traumatic normal coag and plt function follow plt count 09/21: plt slightly better. no change in ecchymoses. check duplex LE 09/22: plt stable. awaiting duplex result. no change in ecchymoses 09/24: plt improving; no evidence of DVT. slight improvement of ecchymoses 09/25: leg edema better; no changes in ecchymoses on forearms 6: Mild leukopenia, not neutropenic. Stable ple. Ecchymoses unchanged. Nutritional Asmnt/Malnutr-PDOC - Dietary Evaluation Malnutrition Findings (Please click <Entered> for more info): Nutritional Asmnt/Malnutrition Start: 09/21/17 17: 29 Text: Status: Complete Freq: Protocol: Document 09/21/17 17:29 [email or web address] (Rec: 09/21/17 17:36 [id number]) Nutritional Asmnt/Malnutrition Patient General Information Nutritional Screening Moderate Risk Diagnosis psychosis NOS Pertinent Medical Hx/Surgical Hx COPD, stroke HTN, hypothyroidism, bronchitis Subjective Information Per EMR, PO itnake 75-100%. Current Diet Order/ Nutrition Support regular Pertinent Medications pepcid, levqauin, synthroid, seroquel Pertinent Labs 09/18 glucose 174, A1c 5.8 Nutritional Hx/Data Height 1.57 m Height (Calculated Centimeters) 157.5 Current Weight (lbs) 70.307 kg Weight (Calculated Kilograms) 70.3 Weight (Calculated Grams) 30661.8 Staples Body Weight 110 Body Mass Index (BMI) 28.3 Weight Status Overweight GI Symptoms GI Symptoms None Last BM 09/20 Difficult in: None Skin Integrity/Comment: intact Current %PO Good (75-100%) Estimated Nutritional Goals BEE in Kcals: Adj wt of IBW Calories/Kcals/Kg 25-30 adj wt 55kg Kcals Calculated 6933-9499 Protein: Adj wt of IBW Protein g/k-1.2 Protein Calculated 55-66 Fluid: ml 1375-1650ml (1ml/kcal) Nutritional Problem No current Nutrition Prob Problem N/A Malnutrition Alert Is there a minimum of two criteria No selected? Query Text:Check all the applicable criteria. A minimum of two criteria are recommended for diagnosis of either severe or non-severe malnutrition. Malnutrition Related to Morbid Obesity Malnutrition related to morbid obesity No Intervention/Recommendation Comments 1. Continue with current diet as ordered. Monitor glucose level. If glucose high, consider adding CCHO diet. 2. Monitor PO intake, wt, labs and skin integrity 3. F/U as low risk in 7 days, 09/28 Expected Outcomes/Goals Expected Outcomes/Goals 1. PO intake to meet at least 75% of nutritional needs. 2. Wt stability, skin to remain intact, labs to approach WNL.
[2017-09-26] MEDS: NYSTATIN 100000 UNITS/GM POWD TP SCH (17:14)
--- NOTE | 2017-09-26 22:01 | Progress Notes ---
DATE: 09/26/2017 SUBJECTIVE: Staff was spoken to. The patient is interviewed. Mood is noted to be irritable. Affect is constricted. Insight and judgment at this time are noted to be still impaired. Impulse control is noted to be limited. Coping skills are noted to be limited. She continues to be paranoid and somatically preoccupied. The patient is stating that she is not able to get up and then move. ASSESSMENT: The patient is still paranoid and demanding and impulsive. PLAN: To increase the dose on the Seroquel to 200 mg at bedtime and follow the patient up. JOB# [id number]
[2017-09-27] MEDS: Levothyroxine 0.05 Mg Tab PO SCH (06:43)
[2017-09-27] MEDS: Ipratropium Neb 0.5 mg/2.5 mL UD IH SCH ×4 (07:29→19:19)
[2017-09-27] MEDS: Albuterol Nebulizer 2.5mg/3mL HHN SCH ×4 (07:29→19:19)
--- NOTE | 2017-09-27 14:44 | Internal Medicine Prog Note ---
Internal Medicine Subjective - Subjective Service Date: 09/27/17 Patient is:: awake Patient Complaints of:: cough Per staff patient has:: tolerating meds Internal Medicine Objective - Results Result Diagrams: 09/26/17 06:30 09/22/17 06:57 Recent Labs: Laboratory Last Values WBC 3.4 Th/cmm (4.8-10.8) L 09/26/17 06:30 RBC 3.89 Mil/cmm (3.80-5.20) 09/26/17 06:30 Hgb 11.9 gm/dL (12-16) L 09/26/17 06:30 Hct 35.5 % (41.0-60) L 09/26/17 06:30 MCV 91.3 fl (81-100) 09/26/17 06:30 MCH 30.5 pg (27.0-31.0) 09/26/17 06:30 MCHC Differential 33.4 pg (28.0-36.0) 09/26/17 06:30 RDW 17.1 % (11.5-20.0) 09/26/17 06:30 Plt Count 108 Th/cmm (150-400) L 09/26/17 06:30 MPV 7.3 fl 09/26/17 06:30 Neutrophils % 60.6 % (40.0-80.0) 09/26/17 06:30 Lymphocytes % 24.0 % (20.0-50.0) 09/26/17 06:30 Monocytes % 10.6 % (2.0-10.0) H 09/26/17 06:30 Eosinophils % 3.7 % (0.0-5.0) 09/26/17 06:30 Basophils % 1.1 % (0.0-2.0) 09/26/17 06:30 PT 11.4 SECONDS (9.5-11.5) 09/20/17 09:10 INR 1.09 (0.5-1.4) 09/20/17 09:10 PTT (Actin FS) 22.5 SECONDS (26.0-38.0) L 09/20/17 09:10 Fibrinogen 215.0 mg/dL (200.0-400.0) 09/20/17 09:10 Plt Function Studies SEE COMMENT 09/20/17 09:10 Sodium 140 mEq/L (136-145) 09/22/17 06:57 Potassium 3.6 mEq/L (3.5-5.1) 09/22/17 06:57 Chloride 106 mEq/L (98-107) 09/22/17 06:57 Carbon Dioxide 29.2 mEq/L (21.0-31.0) 09/22/17 06:57 Anion Gap 8.4 (7.0-16.0) 09/22/17 06:57 BUN 8 mg/dL (7-25) 09/22/17 06:57 Creatinine 0.6 mg/dL (0.6-1.2) 09/22/17 06:57 Est GFR ( Amer) > 60.0 ml/min (>90) 09/22/17 06:57 Est GFR (Non-Af Amer) > 60.0 ml/min 09/22/17 06:57 BUN/Creatinine Ratio 13.3 09/22/17 06:57 Glucose 87 mg/dL (70-105) 09/22/17 06:57 Hemoglobin A1c % 5.8 % (4.0-6.0) 09/18/17 20:50 Calcium 8.2 mg/dL (8.6-10.3) L 09/22/17 06:57 Magnesium 2.0 mg/dL (1.9-2.7) 09/18/17 20:50 Total Bilirubin 0.7 mg/dL (0.3-1.0) 09/18/17 20:50 AST 28 U/L (13-39) 09/18/17 20:50 ALT 26 U/L (7-52) 09/18/17 20:50 Alkaline Phosphatase 123 U/L (34-104) H 09/18/17 20:50 Troponin I 0.04 ng/mL (0.01-0.05) 09/18/17 20:50 B-Natriuretic Peptide 31.5 pg/mL (5.0-100.0) 09/18/17 20:50 Total Protein 5.1 gm/dL (6.0-8.3) L 09/18/17 20:50 Albumin 2.7 gm/dL (3.7-5.3) L 09/18/17 20:50 Globulin 2.4 gm/dL 09/18/17 20:50 Albumin/Globulin Ratio 1.1 (1.0-1.8) 09/18/17 20:50 RPR NONREACTIVE (NONREACTIVE) 09/18/17 20:50 - Physical Exam Vitals and I&O: Vital Signs Temp 98 F 09/27/17 06:34 Pulse 85 09/27/17 14:33 Resp 20 09/27/17 14:33 BP 120/66 09/27/17 09:25 Pulse Ox 95 09/27/17 14:33 Intake & Output 09/26/17 09/27/17 09/27/17 18:59 06:59 18:59 Intake Total 1600 420 Balance 1600 420 Intake: Oral 1600 420 Other: # Voids 5 2 # Bowel Movements 0 Active Medications: Current Medications Acetaminophen (Tylenol) 650 mg PO Q4HR PRN PRN Reason: Mild Pain / Temp above 100 Stop: 11/17/17 22:57 Last Admin: 09/25/17 21:15 Dose: 650 mg Acetylcysteine (Mucomyst 20%) 2 ml HHN Q6HRT [facility] Stop: 11/26/17 12:59 Last Admin: 09/27/17 14:30 Dose: Not Given Albuterol Sulfate (Albuterol 2.5mg/3ml Neb Ud) 2.5 mg HHN QIDRT [facility] Stop: 11/18/17 14:59 Last Admin: 09/27/17 14:24 Dose: 2.5 mg Buspirone HCl (Buspar) 20 mg PO BID [facility]; Protocol Stop: 11/20/17 08:59 Last Admin: 09/27/17 09:25 Dose: 20 mg Duloxetine HCl (Cymbalta) 60 mg PO DAILY [facility]; Protocol Stop: 11/21/17 08:59 Last Admin: 09/27/17 09:24 Dose: 60 mg Famotidine (Pepcid) 20 mg PO BID [facility] Stop: 11/18/17 08:59 Last Admin: 09/27/17 09:24 Dose: 20 mg Furosemide (Lasix) 40 mg PO DAILY [facility] Stop: 11/20/17 14:09 Last Admin: 09/27/17 09:23 Dose: 40 mg Gabapentin (Neurontin) 600 mg PO Q8H [facility] Stop: 11/18/17 05:59 Last Admin: 09/27/17 06:43 Dose: 600 mg Ipratropium [place] (Atrovent Neb 0.5mg/2.5ml) 0.5 mg IH QIDRT [facility] Stop: 11/18/17 14:59 Last Admin: 09/27/17 14:24 Dose: 0.5 mg Lamotrigine (Lamictal) 200 mg PO BID [facility]; Protocol Stop: 11/18/17 08:59 Last Admin: 09/27/17 09:22 Dose: 200 mg Levothyroxine Sodium (Synthroid) 0.05 mg PO QDAC [facility] Stop: 11/18/17 07:29 Last Admin: 09/27/17 06:43 Dose: 0.05 mg Lorazepam (Ativan) 0.5 mg PO Q6HR PRN; Protocol PRN Reason: Anxiety Stop: 11/21/17 10:06 Last Admin: 09/27/17 09:25 Dose: 0.5 mg Losartan Potassium (Cozaar) 25 mg PO DAILY [facility] Stop: 11/18/17 08:59 Last Admin: 09/27/17 09:25 Dose: 25 mg Miscellaneous (Probiotic Screen) 1 ea MC PRN PRN PRN Reason: PROTOCOL Stop: 11/18/17 10:21 Nystatin (Nystop) 100 units TP BID [facility] Stop: 11/20/17 16:59 Last Admin: 09/26/17 17:14 Dose: 100 units Prednisone (Deltasone) 15 mg PO DAILY [facility] Stop: 11/18/17 08:59 Last Admin: 09/27/17 09:23 Dose: 15 mg Quetiapine Fumarate (Seroquel) 200 mg PO HS [facility] Stop: 11/26/17 20:59 Zolpidem Tartrate (Ambien) 5 mg PO HS PRN PRN Reason: Insomnia Stop: 11/17/17 22:57 Last Admin: 09/24/17 21:55 Dose: 5 mg General: alert HEENT: NC/AT, PERRLA Neck: Supple Lungs: ronchi Cardiovascular: RRR, Normal S1, Normal S2 Abdomen: soft, non-tender, non-distended Neurological: no change Internal Medicine Assmt/Plan - Assessment Assessment: copd htn hypothyroidism right hand abrasion hyperglycemia low albumin obesity - Plan Plan: supplemental oxygen as needed bronchodilators as needed monitor glucose continue current plan of care Nutritional Asmnt/Malnutr-PDOC - Dietary Evaluation Malnutrition Findings (Please click <Entered> for more info): Nutritional Asmnt/Malnutrition Start: 09/21/17 17: 29 Text: Status: Complete Freq: Protocol: Document 09/21/17 17:29 LCCLAUDIA (Rec: 09/21/17 17:36 ALLI [email or web address]) Nutritional Asmnt/Malnutrition Patient General Information Nutritional Screening Moderate Risk Diagnosis psychosis NOS Pertinent Medical Hx/Surgical Hx COPD, stroke HTN, hypothyroidism, bronchitis Subjective Information Per EMR, PO itnake 75-100%. Current Diet Order/ Nutrition Support regular Pertinent Medications pepcid, levqauin, synthroid, seroquel Pertinent Labs 09/18 glucose 174, A1c 5.8 Nutritional Hx/Data Height 5 ft 2 in Height (Calculated Centimeters) 157.5 Current Weight (lbs) 155 lb Weight (Calculated Kilograms) 70.3 Weight (Calculated Grams) 21522.8 [place] Body Weight 110 Body Mass Index (BMI) 28.3 Weight Status Overweight GI Symptoms GI Symptoms None Last BM 09/20 Difficult in: None Skin Integrity/Comment: intact Current %PO Good (75-100%) Estimated Nutritional Goals BEE in Kcals: Adj wt of IBW Calories/Kcals/Kg 25-30 adj wt 55kg Kcals Calculated 6015-0948 Protein: Adj wt of IBW Protein g/k-1.2 Protein Calculated 55-66 Fluid: ml 1375-1650ml (1ml/kcal) Nutritional Problem No current Nutrition Prob Problem N/A Malnutrition Alert Is there a minimum of two criteria No selected? Query Text:Check all the applicable criteria. A minimum of two criteria are recommended for diagnosis of either severe or non-severe malnutrition. Malnutrition Related to Morbid Obesity Malnutrition related to morbid obesity No Intervention/Recommendation Comments 1. Continue with current diet as ordered. Monitor glucose level. If glucose high, consider adding CCHO diet. 2. Monitor PO intake, wt, labs and skin integrity 3. F/U as low risk in 7 days, 09/28 Expected Outcomes/Goals Expected Outcomes/Goals 1. PO intake to meet at least 75% of nutritional needs. 2. Wt stability, skin to remain intact, labs to approach WNL.
[2017-09-27] MEDS: NYSTATIN 100000 UNITS/GM POWD TP SCH (22:35)
--- NOTE | 2017-09-28 03:30 | Progress Notes ---
DATE: 09/27/2017 SUBJECTIVE: Staff was spoken to. The patient is interviewed. Mood is noted to be anxious. The patient's coping skills are noted to be improving at this time and the patient has been still demanding and argumentative with the staff members and the patient's Seroquel has been increased. The patient has been stating that she has been having a lot of back pain after the fall. ASSESSMENT: The patient is still somatic and impulsive. PLAN: To continue the patient with the supportive therapy and place the patient to verbalize the concerns rather than to act out. JOB# [id number]
[2017-09-28] MEDS: Levothyroxine 0.05 Mg Tab PO SCH (06:43)
[2017-09-28] MEDS: Albuterol Nebulizer 2.5mg/3mL HHN SCH ×4 (07:12→19:28)
[2017-09-28] MEDS: Ipratropium Neb 0.5 mg/2.5 mL UD IH SCH ×4 (07:12→19:28)
[2017-09-28] MEDS: NYSTATIN 100000 UNITS/GM POWD TP SCH ×2 (08:56→16:08)
--- NOTE | 2017-09-28 11:55 | Internal Medicine Prog Note ---
Internal Medicine Subjective - Subjective Service Date: 09/28/17 Patient is:: awake Patient Complaints of:: cough Per staff patient has:: tolerating meds Internal Medicine Objective - Results Result Diagrams: 09/26/17 06:30 09/22/17 06:57 Recent Labs: Laboratory Last Values WBC 3.4 Th/cmm (4.8-10.8) L 09/26/17 06:30 RBC 3.89 Mil/cmm (3.80-5.20) 09/26/17 06:30 Hgb 11.9 gm/dL (12-16) L 09/26/17 06:30 Hct 35.5 % (41.0-60) L 09/26/17 06:30 MCV 91.3 fl (81-100) 09/26/17 06:30 MCH 30.5 pg (27.0-31.0) 09/26/17 06:30 MCHC Differential 33.4 pg (28.0-36.0) 09/26/17 06:30 RDW 17.1 % (11.5-20.0) 09/26/17 06:30 Plt Count 108 Th/cmm (150-400) L 09/26/17 06:30 MPV 7.3 fl 09/26/17 06:30 Neutrophils % 60.6 % (40.0-80.0) 09/26/17 06:30 Lymphocytes % 24.0 % (20.0-50.0) 09/26/17 06:30 Monocytes % 10.6 % (2.0-10.0) H 09/26/17 06:30 Eosinophils % 3.7 % (0.0-5.0) 09/26/17 06:30 Basophils % 1.1 % (0.0-2.0) 09/26/17 06:30 PT 11.4 SECONDS (9.5-11.5) 09/20/17 09:10 INR 1.09 (0.5-1.4) 09/20/17 09:10 PTT (Actin FS) 22.5 SECONDS (26.0-38.0) L 09/20/17 09:10 Fibrinogen 215.0 mg/dL (200.0-400.0) 09/20/17 09:10 Plt Function Studies SEE COMMENT 09/20/17 09:10 Sodium 140 mEq/L (136-145) 09/22/17 06:57 Potassium 3.6 mEq/L (3.5-5.1) 09/22/17 06:57 Chloride 106 mEq/L (98-107) 09/22/17 06:57 Carbon Dioxide 29.2 mEq/L (21.0-31.0) 09/22/17 06:57 Anion Gap 8.4 (7.0-16.0) 09/22/17 06:57 BUN 8 mg/dL (7-25) 09/22/17 06:57 Creatinine 0.6 mg/dL (0.6-1.2) 09/22/17 06:57 Est GFR ( Amer) > 60.0 ml/min (>90) 09/22/17 06:57 Est GFR (Non-Af Amer) > 60.0 ml/min 09/22/17 06:57 BUN/Creatinine Ratio 13.3 09/22/17 06:57 Glucose 87 mg/dL (70-105) 09/22/17 06:57 Hemoglobin A1c % 5.8 % (4.0-6.0) 09/18/17 20:50 Calcium 8.2 mg/dL (8.6-10.3) L 09/22/17 06:57 Magnesium 2.0 mg/dL (1.9-2.7) 09/18/17 20:50 Total Bilirubin 0.7 mg/dL (0.3-1.0) 09/18/17 20:50 AST 28 U/L (13-39) 09/18/17 20:50 ALT 26 U/L (7-52) 09/18/17 20:50 Alkaline Phosphatase 123 U/L (34-104) H 09/18/17 20:50 Troponin I 0.04 ng/mL (0.01-0.05) 09/18/17 20:50 B-Natriuretic Peptide 31.5 pg/mL (5.0-100.0) 09/18/17 20:50 Total Protein 5.1 gm/dL (6.0-8.3) L 09/18/17 20:50 Albumin 2.7 gm/dL (3.7-5.3) L 09/18/17 20:50 Globulin 2.4 gm/dL 09/18/17 20:50 Albumin/Globulin Ratio 1.1 (1.0-1.8) 09/18/17 20:50 RPR NONREACTIVE (NONREACTIVE) 09/18/17 20:50 - Physical Exam Vitals and I&O: Vital Signs Temp 97.4 F 09/28/17 06:37 Pulse 82 09/28/17 10:36 Resp 20 09/28/17 10:36 BP 131/74 09/28/17 09:01 Pulse Ox 94 09/28/17 10:36 Intake & Output 09/27/17 09/28/17 09/28/17 18:59 06:59 18:59 Intake Total 1600 360 Balance 1600 360 Intake: Oral 1600 360 Other: # Voids 4 2 Active Medications: Current Medications Acetaminophen (Tylenol) 650 mg PO Q4HR PRN PRN Reason: Mild Pain / Temp above 100 Stop: 11/17/17 22:57 Last Admin: 09/25/17 21:15 Dose: 650 mg Acetylcysteine (Mucomyst 20%) 2 ml HHN Q6HRT [facility] Stop: 11/26/17 12:59 Last Admin: 09/28/17 01:13 Dose: Not Given Albuterol Sulfate (Albuterol 2.5mg/3ml Neb Ud) 2.5 mg HHN QIDRT [facility] Stop: 11/18/17 14:59 Last Admin: 09/28/17 10:36 Dose: 2.5 mg Buspirone HCl (Buspar) 20 mg PO BID [facility]; Protocol Stop: 11/20/17 08:59 Last Admin: 09/28/17 08:59 Dose: 20 mg Duloxetine HCl (Cymbalta) 60 mg PO DAILY [facility]; Protocol Stop: 11/21/17 08:59 Last Admin: 09/28/17 09:00 Dose: 60 mg Famotidine (Pepcid) 20 mg PO BID [facility] Stop: 11/18/17 08:59 Last Admin: 09/28/17 09:00 Dose: 20 mg Furosemide (Lasix) 40 mg PO DAILY [facility] Stop: 11/20/17 14:09 Last Admin: 09/28/17 09:00 Dose: 40 mg Gabapentin (Neurontin) 600 mg PO Q8H [facility] Stop: 11/18/17 05:59 Last Admin: 09/28/17 06:43 Dose: 600 mg Ipratropium [place] (Atrovent Neb 0.5mg/2.5ml) 0.5 mg IH QIDRT [facility] Stop: 11/18/17 14:59 Last Admin: 09/28/17 10:36 Dose: 0.5 mg Lamotrigine (Lamictal) 200 mg PO BID [facility]; Protocol Stop: 11/18/17 08:59 Last Admin: 09/28/17 09:01 Dose: 200 mg Levothyroxine Sodium (Synthroid) 0.05 mg PO QDAC [facility] Stop: 11/18/17 07:29 Last Admin: 09/28/17 06:43 Dose: 0.05 mg Lorazepam (Ativan) 0.5 mg PO Q6HR PRN; Protocol PRN Reason: Anxiety Stop: 11/21/17 10:06 Last Admin: 09/27/17 22:38 Dose: 0.5 mg Losartan Potassium (Cozaar) 25 mg PO DAILY [facility] Stop: 11/18/17 08:59 Last Admin: 09/28/17 09:01 Dose: 25 mg Miscellaneous (Probiotic Screen) 1 ea MC PRN PRN PRN Reason: PROTOCOL Stop: 11/18/17 10:21 Nystatin (Nystop) 100 units TP BID [facility] Stop: 11/20/17 16:59 Last Admin: 09/28/17 08:56 Dose: 100 units Prednisone (Deltasone) 15 mg PO DAILY [facility] Stop: 11/18/17 08:59 Last Admin: 09/28/17 09:02 Dose: 15 mg Quetiapine Fumarate (Seroquel) 200 mg PO HS [facility] Stop: 11/26/17 20:59 Last Admin: 09/27/17 21:15 Dose: 200 mg Zolpidem Tartrate (Ambien) 5 mg PO HS PRN PRN Reason: Insomnia Stop: 11/17/17 22:57 Last Admin: 09/24/17 21:55 Dose: 5 mg General: alert HEENT: NC/AT, PERRLA Neck: Supple Lungs: ronchi Cardiovascular: RRR, Normal S1, Normal S2 Abdomen: soft, non-tender, non-distended Neurological: no change Internal Medicine Assmt/Plan - Assessment Assessment: copd htn hypothyroidism right hand abrasion hyperglycemia low albumin obesity - Plan Plan: supplemental oxygen as needed bronchodilators as needed monitor glucose continue current plan of care Nutritional Asmnt/Malnutr-PDOC - Dietary Evaluation Malnutrition Findings (Please click <Entered> for more info): Nutritional Asmnt/Malnutrition Start: 09/21/17 17: 29 Text: Status: Complete Freq: Protocol: Document 09/21/17 17:29 LCJESSICAG (Rec: 09/21/17 17:36 LCJESSICAG [email or web address]) Nutritional Asmnt/Malnutrition Patient General Information Nutritional Screening Moderate Risk Diagnosis psychosis NOS Pertinent Medical Hx/Surgical Hx COPD, stroke HTN, hypothyroidism, bronchitis Subjective Information Per EMR, PO itnake 75-100%. Current Diet Order/ Nutrition Support regular Pertinent Medications pepcid, levqauin, synthroid, seroquel Pertinent Labs 09/18 glucose 174, A1c 5.8 Nutritional Hx/Data Height 5 ft 2 in Height (Calculated Centimeters) 157.5 Current Weight (lbs) 155 lb Weight (Calculated Kilograms) 70.3 Weight (Calculated Grams) 84573.8 [place] Body Weight 110 Body Mass Index (BMI) 28.3 Weight Status Overweight GI Symptoms GI Symptoms None Last BM 09/20 Difficult in: None Skin Integrity/Comment: intact Current %PO Good (75-100%) Estimated Nutritional Goals BEE in Kcals: Adj wt of IBW Calories/Kcals/Kg 25-30 adj wt 55kg Kcals Calculated 1148-1999 Protein: Adj wt of IBW Protein g/k-1.2 Protein Calculated 55-66 Fluid: ml 1375-1650ml (1ml/kcal) Nutritional Problem No current Nutrition Prob Problem N/A Malnutrition Alert Is there a minimum of two criteria No selected? Query Text:Check all the applicable criteria. A minimum of two criteria are recommended for diagnosis of either severe or non-severe malnutrition. Malnutrition Related to Morbid Obesity Malnutrition related to morbid obesity No Intervention/Recommendation Comments 1. Continue with current diet as ordered. Monitor glucose level. If glucose high, consider adding CCHO diet. 2. Monitor PO intake, wt, labs and skin integrity 3. F/U as low risk in 7 days, 6/8 Expected Outcomes/Goals Expected Outcomes/Goals 1. PO intake to meet at least 75% of nutritional needs. 2. Wt stability, skin to remain intact, labs to approach WNL.
--- NOTE | 2017-09-28 14:54 | General Progress Note ---
Subjective - Review of Systems Service Date: 09/28/17 Subjective: awake, ambulatory Objective - Results Result Diagrams: 09/26/17 06:30 09/22/17 06:57 Recent Labs: Laboratory Last Values WBC 3.4 Th/cmm (4.8-10.8) L 09/26/17 06:30 RBC 3.89 Mil/cmm (3.80-5.20) 09/26/17 06:30 Hgb 11.9 gm/dL (12-16) L 09/26/17 06:30 Hct 35.5 % (41.0-60) L 09/26/17 06:30 MCV 91.3 fl (81-100) 09/26/17 06:30 MCH 30.5 pg (27.0-31.0) 09/26/17 06:30 MCHC Differential 33.4 pg (28.0-36.0) 09/26/17 06:30 RDW 17.1 % (11.5-20.0) 09/26/17 06:30 Plt Count 108 Th/cmm (150-400) L 09/26/17 06:30 MPV 7.3 fl 09/26/17 06:30 Neutrophils % 60.6 % (40.0-80.0) 09/26/17 06:30 Lymphocytes % 24.0 % (20.0-50.0) 09/26/17 06:30 Monocytes % 10.6 % (2.0-10.0) H 09/26/17 06:30 Eosinophils % 3.7 % (0.0-5.0) 09/26/17 06:30 Basophils % 1.1 % (0.0-2.0) 09/26/17 06:30 PT 11.4 SECONDS (9.5-11.5) 09/20/17 09:10 INR 1.09 (0.5-1.4) 09/20/17 09:10 PTT (Actin FS) 22.5 SECONDS (26.0-38.0) L 09/20/17 09:10 Fibrinogen 215.0 mg/dL (200.0-400.0) 09/20/17 09:10 Plt Function Studies SEE COMMENT 09/20/17 09:10 Sodium 140 mEq/L (136-145) 09/22/17 06:57 Potassium 3.6 mEq/L (3.5-5.1) 09/22/17 06:57 Chloride 106 mEq/L (98-107) 09/22/17 06:57 Carbon Dioxide 29.2 mEq/L (21.0-31.0) 09/22/17 06:57 Anion Gap 8.4 (7.0-16.0) 09/22/17 06:57 BUN 8 mg/dL (7-25) 09/22/17 06:57 Creatinine 0.6 mg/dL (0.6-1.2) 09/22/17 06:57 Est GFR ( Amer) > 60.0 ml/min (>90) 09/22/17 06:57 Est GFR (Non-Af Amer) > 60.0 ml/min 09/22/17 06:57 BUN/Creatinine Ratio 13.3 09/22/17 06:57 Glucose 87 mg/dL (70-105) 09/22/17 06:57 Hemoglobin A1c % 5.8 % (4.0-6.0) 09/18/17 20:50 Calcium 8.2 mg/dL (8.6-10.3) L 09/22/17 06:57 Magnesium 2.0 mg/dL (1.9-2.7) 09/18/17 20:50 Total Bilirubin 0.7 mg/dL (0.3-1.0) 09/18/17 20:50 AST 28 U/L (13-39) 09/18/17 20:50 ALT 26 U/L (7-52) 09/18/17 20:50 Alkaline Phosphatase 123 U/L (34-104) H 09/18/17 20:50 Troponin I 0.04 ng/mL (0.01-0.05) 09/18/17 20:50 B-Natriuretic Peptide 31.5 pg/mL (5.0-100.0) 09/18/17 20:50 Total Protein 5.1 gm/dL (6.0-8.3) L 09/18/17 20:50 Albumin 2.7 gm/dL (3.7-5.3) L 09/18/17 20:50 Globulin 2.4 gm/dL 09/18/17 20:50 Albumin/Globulin Ratio 1.1 (1.0-1.8) 09/18/17 20:50 RPR NONREACTIVE (NONREACTIVE) 09/18/17 20:50 - Physical Exam Vitals and I&O: Vital Signs Temp 97.4 F 09/28/17 06:37 Pulse 84 09/28/17 14:04 Resp 20 09/28/17 14:04 BP 131/74 09/28/17 09:01 Pulse Ox 95 09/28/17 14:04 Intake & Output 09/27/17 09/28/17 09/28/17 18:59 06:59 18:59 Intake Total 1600 360 Balance 1600 360 Intake: Oral 1600 360 Other: # Voids 4 2 Active Medications: Current Medications Acetaminophen (Tylenol) 650 mg PO Q4HR PRN PRN Reason: Mild Pain / Temp above 100 Stop: 11/17/17 22:57 Last Admin: 09/25/17 21:15 Dose: 650 mg Acetylcysteine (Mucomyst 20%) 2 ml HHN Q6HRT [facility] Stop: 11/26/17 12:59 Last Admin: 09/28/17 14:03 Dose: 2 ml Albuterol Sulfate (Albuterol 2.5mg/3ml Neb Ud) 2.5 mg HHN QIDRT [facility] Stop: 11/18/17 14:59 Last Admin: 09/28/17 14:03 Dose: 2.5 mg Buspirone HCl (Buspar) 20 mg PO BID [facility]; Protocol Stop: 11/20/17 08:59 Last Admin: 09/28/17 08:59 Dose: 20 mg Duloxetine HCl (Cymbalta) 60 mg PO DAILY [facility]; Protocol Stop: 11/21/17 08:59 Last Admin: 09/28/17 09:00 Dose: 60 mg Famotidine (Pepcid) 20 mg PO BID [facility] Stop: 11/18/17 08:59 Last Admin: 09/28/17 09:00 Dose: 20 mg Furosemide (Lasix) 40 mg PO DAILY [facility] Stop: 11/20/17 14:09 Last Admin: 09/28/17 09:00 Dose: 40 mg Gabapentin (Neurontin) 600 mg PO Q8H [facility] Stop: 11/18/17 05:59 Last Admin: 09/28/17 13:58 Dose: 600 mg Ipratropium [place] (Atrovent Neb 0.5mg/2.5ml) 0.5 mg IH QIDRT [facility] Stop: 11/18/17 14:59 Last Admin: 09/28/17 14:03 Dose: 0.5 mg Lamotrigine (Lamictal) 200 mg PO BID [facility]; Protocol Stop: 11/18/17 08:59 Last Admin: 09/28/17 09:01 Dose: 200 mg Levothyroxine Sodium (Synthroid) 0.05 mg PO QDAC [facility] Stop: 11/18/17 07:29 Last Admin: 09/28/17 06:43 Dose: 0.05 mg Lorazepam (Ativan) 0.5 mg PO Q6HR PRN; Protocol PRN Reason: Anxiety Stop: 11/21/17 10:06 Last Admin: 09/28/17 12:01 Dose: 0.5 mg Losartan Potassium (Cozaar) 25 mg PO DAILY [facility] Stop: 11/18/17 08:59 Last Admin: 09/28/17 09:01 Dose: 25 mg Miscellaneous (Probiotic Screen) 1 ea MC PRN PRN PRN Reason: PROTOCOL Stop: 11/18/17 10:21 Nystatin (Nystop) 100 units TP BID [facility] Stop: 11/20/17 16:59 Last Admin: 09/28/17 08:56 Dose: 100 units Prednisone (Deltasone) 15 mg PO DAILY [facility] Stop: 11/18/17 08:59 Last Admin: 09/28/17 09:02 Dose: 15 mg Quetiapine Fumarate (Seroquel) 200 mg PO HS [facility] Stop: 11/26/17 20:59 Last Admin: 09/27/17 21:15 Dose: 200 mg Zolpidem Tartrate (Ambien) 5 mg PO HS PRN PRN Reason: Insomnia Stop: 11/17/17 22:57 Last Admin: 09/24/17 21:55 Dose: 5 mg General: Alert HEENT: Atraumatic Neck: Supple Cardiovascular: Regular rate Lungs: Clear to auscultation Abdomen: Bowel sounds Extremities: Other (ecchysmoses on forearms) Psych/Mental Status: Other (ecchymoses on both forearms) Assessment/Plan - Assessment Assessment: * Ecchymoses on upper extremeties forearms * Mild thrombocytopenia This is likely traumatic normal coag and plt function follow plt count 09/21: plt slightly better. no change in ecchymoses. check duplex LE 09/22: plt stable. awaiting duplex result. no change in ecchymoses 09/24: plt improving; no evidence of DVT. slight improvement of ecchymoses 09/25: leg edema better; no changes in ecchymoses on forearms 09/26: Mild leukopenia, not neutropenic. Stable ple. Ecchymoses unchanged. 09/28: No repeat lab. Stable improving ecchymoses. Nutritional Asmnt/Malnutr-PDOC - Dietary Evaluation Malnutrition Findings (Please click <Entered> for more info): Nutritional Asmnt/Malnutrition Start: 09/21/17 17: 29 Text: Status: Complete Freq: Protocol: Document 09/21/17 17:29 [email or web address] (Rec: 09/21/17 17:36 [email or web address]) Nutritional Asmnt/Malnutrition Patient General Information Nutritional Screening Moderate Risk Diagnosis psychosis NOS Pertinent Medical Hx/Surgical Hx COPD, stroke HTN, hypothyroidism, bronchitis Subjective Information Per EMR, PO itnake 75-100%. Current Diet Order/ Nutrition Support regular Pertinent Medications pepcid, levqauin, synthroid, seroquel Pertinent Labs 09/18 glucose 174, A1c 5.8 Nutritional Hx/Data Height 1.57 m Height (Calculated Centimeters) 157.5 Current Weight (lbs) 70.307 kg Weight (Calculated Kilograms) 70.3 Weight (Calculated Grams) 92591.8 [place] Body Weight 110 Body Mass Index (BMI) 28.3 Weight Status Overweight GI Symptoms GI Symptoms None Last BM 09/20 Difficult in: None Skin Integrity/Comment: intact Current %PO Good (75-100%) Estimated Nutritional Goals BEE in Kcals: Adj wt of IBW Calories/Kcals/Kg 25-30 adj wt 55kg Kcals Calculated 5902-3508 Protein: Adj wt of IBW Protein g/k-1.2 Protein Calculated 55-66 Fluid: ml 1375-1650ml (1ml/kcal) Nutritional Problem No current Nutrition Prob Problem N/A Malnutrition Alert Is there a minimum of two criteria No selected? Query Text:Check all the applicable criteria. A minimum of two criteria are recommended for diagnosis of either severe or non-severe malnutrition. Malnutrition Related to Morbid Obesity Malnutrition related to morbid obesity No Intervention/Recommendation Comments 1. Continue with current diet as ordered. Monitor glucose level. If glucose high, consider adding CCHO diet. 2. Monitor PO intake, wt, labs and skin integrity 3. F/U as low risk in 7 days, 09/28 Expected Outcomes/Goals Expected Outcomes/Goals 1. PO intake to meet at least 75% of nutritional needs. 2. Wt stability, skin to remain intact, labs to approach WNL.
[2017-09-28 15:27] LABS: LYMPHOCYTE ABSOLUTE 0.3 Th/cmm (1.5-3.0); MONOCYTE ABSOLUTE 0.2 Th/cmm (0.3-1.0)
[2017-09-28 15:31] LABS: % BASOPHILS 0.7 % (0.0-2.0); MEAN PLATELET VOLUME 7.5 fl; PLATELET COUNT 92 Th/cmm (150-400); WHITE BLOOD COUNT 4.1 Th/cmm (4.8-10.8)
[2017-09-28 15:35] LABS: % EOSINOPHILS 4.1 % (0.0-5.0); % LYMPHOCYTES 7.5 % (20.0-50.0); % NEUTROPHILS 82.7 % (40.0-80.0); EOSINOPHILE ABSOLUTE 0.2 Th/cmm (0.1-0.4); HEMOGLOBIN 13.5 gm/dL (12-16); MEAN CELL VOLUME 91.6 fl (81-100); MEAN CORPUSCULAR HEMOGLOBIN 30.9 pg (27.0-31.0); MEAN CORPUSCULAR HGB CONC 33.8 pg (28.0-36.0); NEUTROPHILE ABSOLUTE 3.4 Th/cmm (1.8-8.0); RED BLOOD COUNT 4.37 Mil/cmm (3.80-5.20)
[2017-09-29] MEDS: Albuterol Nebulizer 2.5mg/3mL HHN SCH ×5 (01:26→19:11)
--- NOTE | 2017-09-29 01:59 | Progress Notes ---
DATE: 09/28/2017 PSYCHIATRIC PROGRESS NOTE SUBJECTIVE: Staff was spoken to. The patient is interviewed. Mood is irritable. Affect is constricted. The patient is having acute mood swings. The patient is tearful and crying. The patient is stating that she could not feel it out why she has to have all the bruises and is very much upset. The patient is currently on Cymbalta, Lamictal as well as 200 mg of the Seroquel and has been able to tolerate the medication. The patient is reporting that she has swelling of the right foot and could not figure it out why it is happening. The patient is requested to be followed up. Staff alerted and the patient is going to be referred to Dr. Navarrete for followup on the swelling of the foot. PLAN: To continue the patient with the supportive therapy. Encouraged the patient to verbalize the concerns rather than to act out. JOB# [id number]
[2017-09-29 06:20] LABS: % BASOPHILS 1.3 % (0.0-2.0); % EOSINOPHILS 3.7 % (0.0-5.0); % LYMPHOCYTES 25.8 % (20.0-50.0); % MONOCYTES 8.9 % (2.0-10.0); % NEUTROPHILS 60.3 % (40.0-80.0); EOSINOPHILE ABSOLUTE 0.1 Th/cmm (0.1-0.4); HEMATOCRIT 35.7 % (41.0-60); LYMPHOCYTE ABSOLUTE 0.8 Th/cmm (1.5-3.0); MEAN CELL VOLUME 91.1 fl (81-100); MEAN CORPUSCULAR HEMOGLOBIN 30.7 pg (27.0-31.0); MEAN CORPUSCULAR HGB CONC 33.7 pg (28.0-36.0); MEAN PLATELET VOLUME 7.7 fl; MONOCYTE ABSOLUTE 0.3 Th/cmm (0.3-1.0); NEUTROPHILE ABSOLUTE 1.9 Th/cmm (1.8-8.0); PLATELET COUNT 71 Th/cmm (150-400); RED BLOOD COUNT 3.92 Mil/cmm (3.80-5.20); RED CELL DISTRIBUTION WIDTH 16.3 % (11.5-20.0)
[2017-09-29 06:23] LABS: WHITE BLOOD COUNT 3.1 Th/cmm (4.8-10.8)
[2017-09-29] MEDS: Levothyroxine 0.05 Mg Tab PO SCH (06:32)
[2017-09-29] MEDS: Ipratropium Neb 0.5 mg/2.5 mL UD IH SCH ×4 (06:37→19:11)
[2017-09-29] MEDS: NYSTATIN 100000 UNITS/GM POWD TP SCH ×2 (08:40→16:28)
[2017-09-29] MEDS: Albuterol/Ipratropium Neb 3 ML AERS HHN PRN ×2 (10:52→10:56)
[2017-09-29 13:11] LABS: FOLIC ACID >20.0 ng/mL (>3.0)
--- NOTE | 2017-09-29 13:32 | Internal Medicine Prog Note ---
Internal Medicine Subjective - Subjective Patient seen and examined:: with staff, chart reviewed, other (on o2) Patient is:: awake, verbal, interactive, other (hard of hearing) Patient Complaints of:: congestion, cough Per staff patient has:: no adverse event, no episodes of fall, tolerating meds Internal Medicine Objective - Results Result Diagrams: 09/29/17 06:00 09/22/17 06:57 Recent Labs: Laboratory Last Values WBC 3.1 Th/cmm (4.8-10.8) L 09/29/17 06:00 RBC 3.92 Mil/cmm (3.80-5.20) 09/29/17 06:00 Hgb 12.0 gm/dL (12-16) 09/29/17 06:00 Hct 35.7 % (41.0-60) L 09/29/17 06:00 MCV 91.1 fl (81-100) 09/29/17 06:00 MCH 30.7 pg (27.0-31.0) 09/29/17 06:00 MCHC Differential 33.7 pg (28.0-36.0) 09/29/17 06:00 RDW 16.3 % (11.5-20.0) 09/29/17 06:00 Plt Count 71 Th/cmm (150-400) L 09/29/17 06:00 MPV 7.7 fl 09/29/17 06:00 Neutrophils % 60.3 % (40.0-80.0) 09/29/17 06:00 Lymphocytes % 25.8 % (20.0-50.0) 09/29/17 06:00 Monocytes % 8.9 % (2.0-10.0) 09/29/17 06:00 Eosinophils % 3.7 % (0.0-5.0) 09/29/17 06:00 Basophils % 1.3 % (0.0-2.0) 09/29/17 06:00 PT 11.4 SECONDS (9.5-11.5) 09/20/17 09:10 INR 1.09 (0.5-1.4) 09/20/17 09:10 PTT (Actin FS) 22.5 SECONDS (26.0-38.0) L 09/20/17 09:10 Fibrinogen 215.0 mg/dL (200.0-400.0) 09/20/17 09:10 Plt Function Studies SEE COMMENT 09/20/17 09:10 Sodium 140 mEq/L (136-145) 09/22/17 06:57 Potassium 3.6 mEq/L (3.5-5.1) 09/22/17 06:57 Chloride 106 mEq/L (98-107) 09/22/17 06:57 Carbon Dioxide 29.2 mEq/L (21.0-31.0) 09/22/17 06:57 Anion Gap 8.4 (7.0-16.0) 09/22/17 06:57 BUN 8 mg/dL (7-25) 09/22/17 06:57 Creatinine 0.6 mg/dL (0.6-1.2) 09/22/17 06:57 Est GFR ( Amer) > 60.0 ml/min (>90) 09/22/17 06:57 Est GFR (Non-Af Amer) > 60.0 ml/min 09/22/17 06:57 BUN/Creatinine Ratio 13.3 09/22/17 06:57 Glucose 87 mg/dL (70-105) 09/22/17 06:57 Hemoglobin A1c % 5.8 % (4.0-6.0) 09/18/17 20:50 Calcium 8.2 mg/dL (8.6-10.3) L 09/22/17 06:57 Magnesium 2.0 mg/dL (1.9-2.7) 09/18/17 20:50 Total Bilirubin 0.7 mg/dL (0.3-1.0) 09/18/17 20:50 AST 28 U/L (13-39) 09/18/17 20:50 ALT 26 U/L (7-52) 09/18/17 20:50 Alkaline Phosphatase 123 U/L (34-104) H 09/18/17 20:50 Troponin I 0.04 ng/mL (0.01-0.05) 09/18/17 20:50 B-Natriuretic Peptide 31.5 pg/mL (5.0-100.0) 09/18/17 20:50 Total Protein 5.1 gm/dL (6.0-8.3) L 09/18/17 20:50 Albumin 2.7 gm/dL (3.7-5.3) L 09/18/17 20:50 Globulin 2.4 gm/dL 09/18/17 20:50 Albumin/Globulin Ratio 1.1 (1.0-1.8) 09/18/17 20:50 Vitamin B12 627 pg/mL (232-1245) 09/28/17 15:20 Folic Acid >20.0 ng/mL (>3.0) 09/28/17 15:20 RPR NONREACTIVE (NONREACTIVE) 09/18/17 20:50 - Physical Exam Vitals and I&O: Vital Signs Temp 98.4 F 09/29/17 06:57 Pulse 86 09/29/17 11:05 Resp 16 09/29/17 11:05 BP 164/89 09/29/17 08:44 Pulse Ox 89 09/29/17 11:05 Intake & Output 09/28/17 09/29/17 09/29/17 18:59 06:59 18:59 Intake Total 1500 1090 360 Balance 1500 1090 360 Intake: Oral 1500 1090 360 Other: # Voids 3 1 # Bowel Movements 1 Active Medications: Current Medications Acetaminophen (Tylenol) 650 mg PO Q4HR PRN PRN Reason: Mild Pain / Temp above 100 Stop: 11/17/17 22:57 Last Admin: 09/25/17 21:15 Dose: 650 mg Acetylcysteine (Mucomyst 20%) 2 ml HHN Q6HRT [facility] Stop: 11/26/17 12:59 Last Admin: 09/29/17 06:40 Dose: 2 ml Albuterol Sulfate (Albuterol 2.5mg/3ml Neb Ud) 2.5 mg HHN QIDRT [facility] Stop: 11/18/17 14:59 Last Admin: 09/29/17 10:53 Dose: 2.5 mg Albuterol/Ipratropium (Duoneb Neb) 3 ml HHN Q4HRT PRN PRN Reason: Wheezing Stop: 11/28/17 01:15 Last Admin: 09/29/17 10:56 Dose: 3 ml Buspirone HCl (Buspar) 20 mg PO BID [facility]; Protocol Stop: 11/20/17 08:59 Last Admin: 09/29/17 08:44 Dose: 20 mg Duloxetine HCl (Cymbalta) 60 mg PO DAILY [facility]; Protocol Stop: 11/21/17 08:59 Last Admin: 09/29/17 08:43 Dose: 60 mg Famotidine (Pepcid) 20 mg PO BID [facility] Stop: 11/18/17 08:59 Last Admin: 09/29/17 08:42 Dose: 20 mg Furosemide (Lasix) 40 mg PO DAILY [facility] Stop: 11/20/17 14:09 Last Admin: 09/29/17 08:42 Dose: 40 mg Gabapentin (Neurontin) 600 mg PO Q8H [facility] Stop: 11/18/17 05:59 Last Admin: 09/29/17 13:09 Dose: 600 mg Hydrocortisone (Hydrocortisone 1%) 1 appl TP BID [facility] Stop: 11/27/17 16:59 Last Admin: 09/29/17 08:44 Dose: 1 appl Ipratropium [place] (Atrovent Neb 0.5mg/2.5ml) 0.5 mg IH QIDRT [facility] Stop: 11/18/17 14:59 Last Admin: 09/29/17 10:52 Dose: 0.5 mg Lamotrigine (Lamictal) 200 mg PO BID [facility]; Protocol Stop: 11/18/17 08:59 Last Admin: 09/29/17 08:42 Dose: 200 mg Levothyroxine Sodium (Synthroid) 0.05 mg PO QDAC [facility] Stop: 11/18/17 07:29 Last Admin: 09/29/17 06:32 Dose: 0.05 mg Lorazepam (Ativan) 0.5 mg PO Q6HR PRN; Protocol PRN Reason: Anxiety Stop: 11/21/17 10:06 Last Admin: 09/28/17 21:44 Dose: 0.5 mg Losartan Potassium (Cozaar) 25 mg PO DAILY [facility] Stop: 11/18/17 08:59 Last Admin: 09/29/17 08:44 Dose: 25 mg Miscellaneous (Probiotic Screen) 1 ea MC PRN PRN PRN Reason: PROTOCOL Stop: 11/18/17 10:21 Nystatin (Nystop) 100 units TP BID [facility] Stop: 11/20/17 16:59 Last Admin: 09/29/17 08:40 Dose: 100 units Prednisone (Deltasone) 15 mg PO DAILY [facility] Stop: 11/18/17 08:59 Last Admin: 09/29/17 08:41 Dose: 15 mg Quetiapine Fumarate (Seroquel) 200 mg PO HS [facility] Stop: 11/26/17 20:59 Last Admin: 09/28/17 21:43 Dose: 200 mg Zolpidem Tartrate (Ambien) 5 mg PO HS PRN PRN Reason: Insomnia Stop: 11/17/17 22:57 Last Admin: 09/24/17 21:55 Dose: 5 mg General: alert HEENT: NC/AT, PERRLA Neck: Supple Lungs: ronchi Cardiovascular: RRR, Normal S1, Normal S2 Abdomen: soft, non-tender, non-distended Neurological: no change Internal Medicine Assmt/Plan - Assessment Assessment: - Assessment Assessment: copd htn hypothyroidism right hand abrasion hyperglycemia low albumin obesity - Plan Plan: supplemental oxygen as needed bronchodilators as needed monitor glucose continue current plan of care - Plan Plan: add duoneb Nutritional Asmnt/Malnutr-PDOC - Dietary Evaluation Malnutrition Findings (Please click <Entered> for more info): Nutritional Asmnt/Malnutrition Start: 09/21/17 17: 29 Text: Status: Complete Freq: Protocol: Document 09/21/17 17:29 LCHENG (Rec: 09/21/17 17:36 LCHENG [email or web address]) Nutritional Asmnt/Malnutrition Patient General Information Nutritional Screening Moderate Risk Diagnosis psychosis NOS Pertinent Medical Hx/Surgical Hx COPD, stroke HTN, hypothyroidism, bronchitis Subjective Information Per EMR, PO itnake 75-100%. Current Diet Order/ Nutrition Support regular Pertinent Medications pepcid, levqauin, synthroid, seroquel Pertinent Labs 09/18 glucose 174, A1c 5.8 Nutritional Hx/Data Height 1.57 m Height (Calculated Centimeters) 157.5 Current Weight (lbs) 70.307 kg Weight (Calculated Kilograms) 70.3 Weight (Calculated Grams) 14900.8 [place] Body Weight 110 Body Mass Index (BMI) 28.3 Weight Status Overweight GI Symptoms GI Symptoms None Last BM 09/20 Difficult in: None Skin Integrity/Comment: intact Current %PO Good (75-100%) Estimated Nutritional Goals BEE in Kcals: Adj wt of IBW Calories/Kcals/Kg 25-30 adj wt 55kg Kcals Calculated 5791-1031 Protein: Adj wt of IBW Protein g/k-1.2 Protein Calculated 55-66 Fluid: ml 1375-1650ml (1ml/kcal) Nutritional Problem No current Nutrition Prob Problem N/A Malnutrition Alert Is there a minimum of two criteria No selected? Query Text:Check all the applicable criteria. A minimum of two criteria are recommended for diagnosis of either severe or non-severe malnutrition. Malnutrition Related to Morbid Obesity Malnutrition related to morbid obesity No Intervention/Recommendation Comments 1. Continue with current diet as ordered. Monitor glucose level. If glucose high, consider adding CCHO diet. 2. Monitor PO intake, wt, labs and skin integrity 3. F/U as low risk in 7 days, 6 Expected Outcomes/Goals Expected Outcomes/Goals 1. PO intake to meet at least 75% of nutritional needs. 2. Wt stability, skin to remain intact, labs to approach WNL.
--- NOTE | 2017-09-29 13:37 | Progress Notes ---
DATE: 09/29/2017 PSYCHIATRIC PROGRESS NOTE SUBJECTIVE: Staff was spoken to. The patient is interviewed. Mood is noted to be irritable. Affect is constricted. Coping skills are noted to be poor. The patient is still complaining that the skin on the left hand is bruised with all the hospitalization, the patient is stating that she is going to recuperate from that one. Insight and judgment at this time are noted to be still impaired. Impulse control seems to be limited. The patient is currently on 200 mg of the Seroquel and has been able to tolerate the medication. ASSESSMENT: The patient is still paranoid. PLAN: To continue the patient with supportive therapy and followup. JOB# [id number]
--- NOTE | 2017-09-29 15:41 | General Progress Note ---
Subjective - Review of Systems Service Date: 09/29/17 Subjective: awake, ambulatory, rash and edema right foot Objective - Results Result Diagrams: 09/29/17 06:00 09/22/17 06:57 Recent Labs: Laboratory Last Values WBC 3.1 Th/cmm (4.8-10.8) L 09/29/17 06:00 RBC 3.92 Mil/cmm (3.80-5.20) 09/29/17 06:00 Hgb 12.0 gm/dL (12-16) 09/29/17 06:00 Hct 35.7 % (41.0-60) L 09/29/17 06:00 MCV 91.1 fl (81-100) 09/29/17 06:00 MCH 30.7 pg (27.0-31.0) 09/29/17 06:00 MCHC Differential 33.7 pg (28.0-36.0) 09/29/17 06:00 RDW 16.3 % (11.5-20.0) 09/29/17 06:00 Plt Count 71 Th/cmm (150-400) L 09/29/17 06:00 MPV 7.7 fl 09/29/17 06:00 Neutrophils % 60.3 % (40.0-80.0) 09/29/17 06:00 Lymphocytes % 25.8 % (20.0-50.0) 09/29/17 06:00 Monocytes % 8.9 % (2.0-10.0) 09/29/17 06:00 Eosinophils % 3.7 % (0.0-5.0) 09/29/17 06:00 Basophils % 1.3 % (0.0-2.0) 09/29/17 06:00 PT 11.4 SECONDS (9.5-11.5) 09/20/17 09:10 INR 1.09 (0.5-1.4) 09/20/17 09:10 PTT (Actin FS) 22.5 SECONDS (26.0-38.0) L 09/20/17 09:10 Fibrinogen 215.0 mg/dL (200.0-400.0) 09/20/17 09:10 Plt Function Studies SEE COMMENT 09/20/17 09:10 Sodium 140 mEq/L (136-145) 09/22/17 06:57 Potassium 3.6 mEq/L (3.5-5.1) 09/22/17 06:57 Chloride 106 mEq/L (98-107) 09/22/17 06:57 Carbon Dioxide 29.2 mEq/L (21.0-31.0) 09/22/17 06:57 Anion Gap 8.4 (7.0-16.0) 09/22/17 06:57 BUN 8 mg/dL (7-25) 09/22/17 06:57 Creatinine 0.6 mg/dL (0.6-1.2) 09/22/17 06:57 Est GFR ( Amer) > 60.0 ml/min (>90) 09/22/17 06:57 Est GFR (Non-Af Amer) > 60.0 ml/min 09/22/17 06:57 BUN/Creatinine Ratio 13.3 09/22/17 06:57 Glucose 87 mg/dL (70-105) 09/22/17 06:57 Hemoglobin A1c % 5.8 % (4.0-6.0) 09/18/17 20:50 Calcium 8.2 mg/dL (8.6-10.3) L 09/22/17 06:57 Magnesium 2.0 mg/dL (1.9-2.7) 09/18/17 20:50 Total Bilirubin 0.7 mg/dL (0.3-1.0) 09/18/17 20:50 AST 28 U/L (13-39) 09/18/17 20:50 ALT 26 U/L (7-52) 09/18/17 20:50 Alkaline Phosphatase 123 U/L (34-104) H 09/18/17 20:50 Troponin I 0.04 ng/mL (0.01-0.05) 09/18/17 20:50 B-Natriuretic Peptide 31.5 pg/mL (5.0-100.0) 09/18/17 20:50 Total Protein 5.1 gm/dL (6.0-8.3) L 09/18/17 20:50 Albumin 2.7 gm/dL (3.7-5.3) L 09/18/17 20:50 Globulin 2.4 gm/dL 09/18/17 20:50 Albumin/Globulin Ratio 1.1 (1.0-1.8) 09/18/17 20:50 Vitamin B12 627 pg/mL (232-1245) 09/28/17 15:20 Folic Acid >20.0 ng/mL (>3.0) 09/28/17 15:20 RPR NONREACTIVE (NONREACTIVE) 09/18/17 20:50 - Physical Exam Vitals and I&O: Vital Signs Temp 99 F 09/29/17 14:00 Pulse 101 09/29/17 14:32 Resp 18 09/29/17 14:32 BP 156/84 09/29/17 14:00 Pulse Ox 93 09/29/17 14:32 Intake & Output 09/28/17 09/29/17 09/29/17 18:59 06:59 18:59 Intake Total 1500 1090 360 Balance 1500 1090 360 Intake: Oral 1500 1090 360 Other: # Voids 3 1 # Bowel Movements 1 Active Medications: Current Medications Acetaminophen (Tylenol) 650 mg PO Q4HR PRN PRN Reason: Mild Pain / Temp above 100 Stop: 11/17/17 22:57 Last Admin: 09/25/17 21:15 Dose: 650 mg Acetylcysteine (Mucomyst 20%) 2 ml HHN Q8HRT [facility] Stop: 11/28/17 22:59 Albuterol Sulfate (Albuterol 2.5mg/3ml Neb Ud) 2.5 mg HHN QIDRT [facility] Stop: 11/18/17 14:59 Last Admin: 09/29/17 14:29 Dose: 2.5 mg Albuterol/Ipratropium (Duoneb Neb) 3 ml HHN Q4HRT PRN PRN Reason: Wheezing Stop: 11/28/17 01:15 Last Admin: 09/29/17 10:56 Dose: 3 ml Buspirone HCl (Buspar) 20 mg PO BID [facility]; Protocol Stop: 11/20/17 08:59 Last Admin: 09/29/17 08:44 Dose: 20 mg Duloxetine HCl (Cymbalta) 60 mg PO DAILY [facility]; Protocol Stop: 11/21/17 08:59 Last Admin: 09/29/17 08:43 Dose: 60 mg Famotidine (Pepcid) 20 mg PO BID [facility] Stop: 11/18/17 08:59 Last Admin: 09/29/17 08:42 Dose: 20 mg Furosemide (Lasix) 40 mg PO DAILY [facility] Stop: 11/20/17 14:09 Last Admin: 09/29/17 08:42 Dose: 40 mg Gabapentin (Neurontin) 600 mg PO Q8H [facility] Stop: 11/18/17 05:59 Last Admin: 09/29/17 13:09 Dose: 600 mg Hydrocortisone (Hydrocortisone 1%) 1 appl TP BID [facility] Stop: 11/27/17 16:59 Last Admin: 09/29/17 08:44 Dose: 1 appl Ipratropium [place] (Atrovent Neb 0.5mg/2.5ml) 0.5 mg IH QIDRT [facility] Stop: 11/18/17 14:59 Last Admin: 09/29/17 14:28 Dose: 0.5 mg Lamotrigine (Lamictal) 200 mg PO BID [facility]; Protocol Stop: 11/18/17 08:59 Last Admin: 09/29/17 08:42 Dose: 200 mg Levothyroxine Sodium (Synthroid) 0.05 mg PO QDAC [facility] Stop: 11/18/17 07:29 Last Admin: 09/29/17 06:32 Dose: 0.05 mg Lorazepam (Ativan) 0.5 mg PO Q6HR PRN; Protocol PRN Reason: Anxiety Stop: 11/21/17 10:06 Last Admin: 09/29/17 15:36 Dose: 0.5 mg Losartan Potassium (Cozaar) 25 mg PO DAILY [facility] Stop: 11/18/17 08:59 Last Admin: 09/29/17 08:44 Dose: 25 mg Miscellaneous (Probiotic Screen) 1 ea MC PRN PRN PRN Reason: PROTOCOL Stop: 11/18/17 10:21 Nystatin (Nystop) 100 units TP BID [facility] Stop: 11/20/17 16:59 Last Admin: 09/29/17 08:40 Dose: 100 units Prednisone (Deltasone) 15 mg PO DAILY [facility] Stop: 11/18/17 08:59 Last Admin: 09/29/17 08:41 Dose: 15 mg Quetiapine Fumarate (Seroquel) 200 mg PO HS [facility] Stop: 11/26/17 20:59 Last Admin: 09/28/17 21:43 Dose: 200 mg Zolpidem Tartrate (Ambien) 5 mg PO HS PRN PRN Reason: Insomnia Stop: 11/17/17 22:57 Last Admin: 09/24/17 21:55 Dose: 5 mg General: Alert HEENT: Atraumatic Neck: Supple Cardiovascular: Regular rate Lungs: Clear to auscultation Abdomen: Bowel sounds Extremities: Other (ecchysmoses on forearms) Psych/Mental Status: Other (ecchymoses on both forearms) Assessment/Plan - Assessment Assessment: * Ecchymoses on upper extremeties forearms * Mild thrombocytopenia This is likely traumatic normal coag and plt function follow plt count 09/21: plt slightly better. no change in ecchymoses. check duplex LE 09/22: plt stable. awaiting duplex result. no change in ecchymoses 09/24: plt improving; no evidence of DVT. slight improvement of ecchymoses 09/25: leg edema better; no changes in ecchymoses on forearms 09/26: Mild leukopenia, not neutropenic. Stable ple. Ecchymoses unchanged. 09/28: No repeat lab. Stable improving ecchymoses. 09/29: leukopenia likely drug induced by seoquel . edema right foot, repeat duplex Nutritional Asmnt/Malnutr-PDOC - Dietary Evaluation Malnutrition Findings (Please click <Entered> for more info): Nutritional Asmnt/Malnutrition Start: 09/21/17 17: 29 Text: Status: Complete Freq: Protocol: Document 09/21/17 17:29 LCHENG (Rec: 09/21/17 17:36 LCHENG [email or web address]) Nutritional Asmnt/Malnutrition Patient General Information Nutritional Screening Moderate Risk Diagnosis psychosis NOS Pertinent Medical Hx/Surgical Hx COPD, stroke HTN, hypothyroidism, bronchitis Subjective Information Per EMR, PO itnake 75-100%. Current Diet Order/ Nutrition Support regular Pertinent Medications pepcid, levqauin, synthroid, seroquel Pertinent Labs 09/18 glucose 174, A1c 5.8 Nutritional Hx/Data Height 1.57 m Height (Calculated Centimeters) 157.5 Current Weight (lbs) 70.307 kg Weight (Calculated Kilograms) 70.3 Weight (Calculated Grams) 57065.8 [place] Body Weight 110 Body Mass Index (BMI) 28.3 Weight Status Overweight GI Symptoms GI Symptoms None Last BM 09/20 Difficult in: None Skin Integrity/Comment: intact Current %PO Good (75-100%) Estimated Nutritional Goals BEE in Kcals: Adj wt of IBW Calories/Kcals/Kg 25-30 adj wt 55kg Kcals Calculated 3836-3834 Protein: Adj wt of IBW Protein g/k-1.2 Protein Calculated 55-66 Fluid: ml 1375-1650ml (1ml/kcal) Nutritional Problem No current Nutrition Prob Problem N/A Malnutrition Alert Is there a minimum of two criteria No selected? Query Text:Check all the applicable criteria. A minimum of two criteria are recommended for diagnosis of either severe or non-severe malnutrition. Malnutrition Related to Morbid Obesity Malnutrition related to morbid obesity No Intervention/Recommendation Comments 1. Continue with current diet as ordered. Monitor glucose level. If glucose high, consider adding CCHO diet. 2. Monitor PO intake, wt, labs and skin integrity 3. F/U as low risk in 7 days, 6/8 Expected Outcomes/Goals Expected Outcomes/Goals 1. PO intake to meet at least 75% of nutritional needs. 2. Wt stability, skin to remain intact, labs to approach WNL.
[2017-09-30] MEDS: Albuterol Nebulizer 2.5mg/3mL HHN SCH ×4 (06:21→19:24)
[2017-09-30] MEDS: Ipratropium Neb 0.5 mg/2.5 mL UD IH SCH ×4 (06:21→19:24)
[2017-09-30] MEDS: Levothyroxine 0.05 Mg Tab PO SCH (06:43)
--- NOTE | 2017-09-30 08:05 | Internal Medicine Prog Note ---
Internal Medicine Subjective - Subjective Patient seen and examined:: with staff, chart reviewed Patient is:: awake, verbal, interactive, other (hard of hearing) Patient Complaints of:: congestion, cough Per staff patient has:: no adverse event, no episodes of fall, tolerating meds Internal Medicine Objective - Results Result Diagrams: 09/29/17 06:00 09/22/17 06:57 Recent Labs: Laboratory Last Values WBC 3.1 Th/cmm (4.8-10.8) L 09/29/17 06:00 RBC 3.92 Mil/cmm (3.80-5.20) 09/29/17 06:00 Hgb 12.0 gm/dL (12-16) 09/29/17 06:00 Hct 35.7 % (41.0-60) L 09/29/17 06:00 MCV 91.1 fl (81-100) 09/29/17 06:00 MCH 30.7 pg (27.0-31.0) 09/29/17 06:00 MCHC Differential 33.7 pg (28.0-36.0) 09/29/17 06:00 RDW 16.3 % (11.5-20.0) 09/29/17 06:00 Plt Count 71 Th/cmm (150-400) L 09/29/17 06:00 MPV 7.7 fl 09/29/17 06:00 Neutrophils % 60.3 % (40.0-80.0) 09/29/17 06:00 Lymphocytes % 25.8 % (20.0-50.0) 09/29/17 06:00 Monocytes % 8.9 % (2.0-10.0) 09/29/17 06:00 Eosinophils % 3.7 % (0.0-5.0) 09/29/17 06:00 Basophils % 1.3 % (0.0-2.0) 09/29/17 06:00 PT 11.4 SECONDS (9.5-11.5) 09/20/17 09:10 INR 1.09 (0.5-1.4) 09/20/17 09:10 PTT (Actin FS) 22.5 SECONDS (26.0-38.0) L 09/20/17 09:10 Fibrinogen 215.0 mg/dL (200.0-400.0) 09/20/17 09:10 Plt Function Studies SEE COMMENT 09/20/17 09:10 Sodium 140 mEq/L (136-145) 09/22/17 06:57 Potassium 3.6 mEq/L (3.5-5.1) 09/22/17 06:57 Chloride 106 mEq/L (98-107) 09/22/17 06:57 Carbon Dioxide 29.2 mEq/L (21.0-31.0) 09/22/17 06:57 Anion Gap 8.4 (7.0-16.0) 09/22/17 06:57 BUN 8 mg/dL (7-25) 09/22/17 06:57 Creatinine 0.6 mg/dL (0.6-1.2) 09/22/17 06:57 Est GFR ( Amer) > 60.0 ml/min (>90) 09/22/17 06:57 Est GFR (Non-Af Amer) > 60.0 ml/min 09/22/17 06:57 BUN/Creatinine Ratio 13.3 09/22/17 06:57 Glucose 87 mg/dL (70-105) 09/22/17 06:57 Hemoglobin A1c % 5.8 % (4.0-6.0) 09/18/17 20:50 Calcium 8.2 mg/dL (8.6-10.3) L 09/22/17 06:57 Magnesium 2.0 mg/dL (1.9-2.7) 09/18/17 20:50 Total Bilirubin 0.7 mg/dL (0.3-1.0) 09/18/17 20:50 AST 28 U/L (13-39) 09/18/17 20:50 ALT 26 U/L (7-52) 09/18/17 20:50 Alkaline Phosphatase 123 U/L (34-104) H 09/18/17 20:50 Troponin I 0.04 ng/mL (0.01-0.05) 09/18/17 20:50 B-Natriuretic Peptide 31.5 pg/mL (5.0-100.0) 09/18/17 20:50 Total Protein 5.1 gm/dL (6.0-8.3) L 09/18/17 20:50 Albumin 2.7 gm/dL (3.7-5.3) L 09/18/17 20:50 Globulin 2.4 gm/dL 09/18/17 20:50 Albumin/Globulin Ratio 1.1 (1.0-1.8) 09/18/17 20:50 Vitamin B12 627 pg/mL (232-1245) 09/28/17 15:20 Folic Acid >20.0 ng/mL (>3.0) 09/28/17 15:20 RPR NONREACTIVE (NONREACTIVE) 09/18/17 20:50 - Physical Exam Vitals and I&O: Vital Signs Temp 97.8 F 09/30/17 06:19 Pulse 90 09/30/17 06:20 Resp 20 09/30/17 06:20 BP 103/60 09/30/17 06:19 Pulse Ox 85 09/30/17 06:20 Intake & Output 09/29/17 09/30/17 09/30/17 18:59 06:59 18:59 Intake Total 1560 264 Output Total 2 Balance 1560 262 Intake: Oral 1560 264 Output: Urine 2 Other: # Voids 2 # Bowel Movements 1 Active Medications: Current Medications Acetaminophen (Tylenol) 650 mg PO Q4HR PRN PRN Reason: Mild Pain / Temp above 100 Stop: 11/17/17 22:57 Last Admin: 09/25/17 21:15 Dose: 650 mg Acetylcysteine (Mucomyst 20%) 2 ml HHN Q8HRT JACQUELINE Stop: 11/28/17 22:59 Last Admin: 09/30/17 06:22 Dose: 2 ml Albuterol Sulfate (Albuterol 2.5mg/3ml Neb Ud) 2.5 mg HHN QIDRT JACQUELINE Stop: 11/18/17 14:59 Last Admin: 09/30/17 06:21 Dose: 2.5 mg Albuterol/Ipratropium (Duoneb Neb) 3 ml HHN Q4HRT PRN PRN Reason: Wheezing Stop: 11/28/17 01:15 Last Admin: 09/29/17 10:56 Dose: 3 ml Buspirone HCl (Buspar) 20 mg PO BID [facility]; Protocol Stop: 11/20/17 08:59 Last Admin: 09/29/17 16:28 Dose: 20 mg Duloxetine HCl (Cymbalta) 60 mg PO DAILY [facility]; Protocol Stop: 11/21/17 08:59 Last Admin: 09/29/17 08:43 Dose: 60 mg Famotidine (Pepcid) 20 mg PO BID [facility] Stop: 11/18/17 08:59 Last Admin: 09/29/17 16:46 Dose: 20 mg Furosemide (Lasix) 40 mg PO DAILY [facility]ACQU[facility]INE Stop: 11/20/17 14:09 Last Admin: 09/29/17 08:42 Dose: 40 mg Gabapentin (Neurontin) 600 mg PO Q8H JACQUELINE Stop: 11/18/17 05:59 Last Admin: 09/30/17 05:56 Dose: 600 mg Hydrocortisone (Hydrocortisone 1%) 1 appl TP BID JACQUELINE Stop: 11/27/17 16:59 Last Admin: 09/29/17 16:29 Dose: 1 appl Ipratropium [place] (Atrovent Neb 0.5mg/2.5ml) 0.5 mg IH QIDRT [facility] Stop: 11/18/17 14:59 Last Admin: 09/30/17 06:21 Dose: 0.5 mg Lamotrigine (Lamictal) 200 mg PO BID [facility]; Protocol Stop: 11/18/17 08:59 Last Admin: 09/29/17 16:28 Dose: 200 mg Levothyroxine Sodium (Synthroid) 0.05 mg PO QDAC [facility] Stop: 11/18/17 07:29 Last Admin: 09/30/17 06:43 Dose: 0.05 mg Lorazepam (Ativan) 0.5 mg PO Q6HR PRN; Protocol PRN Reason: Anxiety Stop: 11/21/17 10:06 Last Admin: 09/29/17 15:36 Dose: 0.5 mg Losartan Potassium (Cozaar) 25 mg PO DAILY [facility] Stop: 11/18/17 08:59 Last Admin: 09/29/17 08:44 Dose: 25 mg Miscellaneous (Probiotic Screen) 1 ea MC PRN PRN PRN Reason: PROTOCOL Stop: 11/18/17 10:21 Nystatin (Nystop) 100 units TP BID [facility] Stop: 11/20/17 16:59 Last Admin: 09/29/17 16:28 Dose: 100 units Prednisone (Deltasone) 15 mg PO DAILY [facility] Stop: 11/18/17 08:59 Last Admin: 09/29/17 08:41 Dose: 15 mg Quetiapine Fumarate (Seroquel) 200 mg PO HS JACQUELINE Stop: 11/26/17 20:59 Last Admin: 09/29/17 20:14 Dose: 200 mg Zolpidem Tartrate (Ambien) 5 mg PO HS PRN PRN Reason: Insomnia Stop: 11/17/17 22:57 Last Admin: 09/29/17 20:14 Dose: 5 mg General: alert HEENT: NC/AT, PERRLA Neck: Supple Lungs: ronchi Cardiovascular: RRR, Normal S1, Normal S2 Abdomen: soft, non-tender, non-distended Neurological: no change Internal Medicine Assmt/Plan - Assessment Assessment: - Assessment Assessment: copd htn hypothyroidism right hand abrasion hyperglycemia low albumin obesity - Plan Plan: supplemental oxygen as needed bronchodilators as needed monitor glucose continue current plan of care - Plan Plan: add cee gillis rn Nutritional Asmnt/Malnutr-PDOC - Dietary Evaluation Malnutrition Findings (Please click <Entered> for more info): Nutritional Asmnt/Malnutrition Start: 09/21/17 17: 29 Text: Status: Complete Freq: Protocol: Document 09/21/17 17:29 LCHENG (Rec: 09/21/17 17:36 LCHENG [email or web address]) Nutritional Asmnt/Malnutrition Patient General Information Nutritional Screening Moderate Risk Diagnosis psychosis NOS Pertinent Medical Hx/Surgical Hx COPD, stroke HTN, hypothyroidism, bronchitis Subjective Information Per EMR, PO itnake 75-100%. Current Diet Order/ Nutrition Support regular Pertinent Medications pepcid, levqauin, synthroid, seroquel Pertinent Labs 09/18 glucose 174, A1c 5.8 Nutritional Hx/Data Height 1.57 m Height (Calculated Centimeters) 157.5 Current Weight (lbs) 70.307 kg Weight (Calculated Kilograms) 70.3 Weight (Calculated Grams) 26246.8 [place] Body Weight 110 Body Mass Index (BMI) 28.3 Weight Status Overweight GI Symptoms GI Symptoms None Last BM 09/20 Difficult in: None Skin Integrity/Comment: intact Current %PO Good (75-100%) Estimated Nutritional Goals BEE in Kcals: Adj wt of IBW Calories/Kcals/Kg 25-30 adj wt 55kg Kcals Calculated 7773-4080 Protein: Adj wt of IBW Protein g/k-1.2 Protein Calculated 55-66 Fluid: ml 1375-1650ml (1ml/kcal) Nutritional Problem No current Nutrition Prob Problem N/A Malnutrition Alert Is there a minimum of two criteria No selected? Query Text:Check all the applicable criteria. A minimum of two criteria are recommended for diagnosis of either severe or non-severe malnutrition. Malnutrition Related to Morbid Obesity Malnutrition related to morbid obesity No Intervention/Recommendation Comments 1. Continue with current diet as ordered. Monitor glucose level. If glucose high, consider adding CCHO diet. 2. Monitor PO intake, wt, labs and skin integrity 3. F/U as low risk in 7 days, 6/8 Expected Outcomes/Goals Expected Outcomes/Goals 1. PO intake to meet at least 75% of nutritional needs. 2. Wt stability, skin to remain intact, labs to approach WNL.
[2017-09-30] MEDS: NYSTATIN 100000 UNITS/GM POWD TP SCH ×2 (08:28→16:51)
--- NOTE | 2017-09-30 10:19 | Diagnostic Imaging Report ---
Exam: Ultrasound examination of the right lower extremity HISTORY: DVT. Findings: Real-time ultrasound examination right lower extremity deep venous circulation was performed multiple planes utilizing color Doppler technique. The study demonstrates normal compressibility and augmentation of deep venous system throughout. IMPRESSION: No evidence for deep thrombosis right lower extremity.
--- NOTE | 2017-09-30 17:58 | Progress Notes ---
DATE: 09/30/2017 SUBJECTIVE: Staff was spoken to. The patient is interviewed. Mood is noted to be anxious. The patient is stating that she has been feeling little bit better. The swelling of the right foot has been decreasing and the patient is stating that the medication has been of some help so far. . The patient's blood count is being closely monitored. WBC is noted to be 3.1 and hematocrit is okay. Platelet count is only 71, platelet count is low at this time. The patient is being closely monitored. Insight and judgment at this time are noted to be improving. Impulse control seems to be fair. No side effects to the medications are noted. ASSESSMENT: The patient is stabilizing. PLAN: Plan to continue the patient with the supportive therapy, encouraged the patient to verbalize the concerns rather than to act out. JOB# [id number]
[2017-10-01 07:21] LABS: % BASOPHILS 0.7 % (0.0-2.0); % EOSINOPHILS 3.6 % (0.0-5.0); % LYMPHOCYTES 24.6 % (20.0-50.0); % NEUTROPHILS 61.1 % (40.0-80.0); EOSINOPHILE ABSOLUTE 0.1 Th/cmm (0.1-0.4); HEMATOCRIT 37.4 % (41.0-60); HEMOGLOBIN 12.6 gm/dL (12-16); MEAN CELL VOLUME 91.5 fl (81-100); MEAN CORPUSCULAR HEMOGLOBIN 30.8 pg (27.0-31.0); MEAN CORPUSCULAR HGB CONC 33.7 pg (28.0-36.0); MEAN PLATELET VOLUME 7.7 fl; MONOCYTE ABSOLUTE 0.4 Th/cmm (0.3-1.0); NEUTROPHILE ABSOLUTE 2.5 Th/cmm (1.8-8.0); PLATELET COUNT 73 Th/cmm (150-400); RED BLOOD COUNT 4.09 Mil/cmm (3.80-5.20); RED CELL DISTRIBUTION WIDTH 16.5 % (11.5-20.0)
[2017-10-01] MEDS: Ipratropium Neb 0.5 mg/2.5 mL UD IH SCH ×2 (07:33→12:08)
[2017-10-01] MEDS: Albuterol Nebulizer 2.5mg/3mL HHN SCH ×2 (07:33→12:08)
[2017-10-01] MEDS: Levothyroxine 0.05 Mg Tab PO SCH (08:15)
[2017-10-01] MEDS: NYSTATIN 100000 UNITS/GM POWD TP SCH (08:52)
--- NOTE | 2017-10-01 11:36 | Internal Medicine Prog Note ---
Internal Medicine Subjective - Subjective Service Date: 10/01/17 Patient is:: awake, verbal, interactive, other (hard of hearing) Patient Complaints of:: congestion, cough Per staff patient has:: no adverse event, no episodes of fall, tolerating meds Internal Medicine Objective - Results Result Diagrams: 10/01/17 07:00 09/22/17 06:57 Recent Labs: Laboratory Last Values WBC 4.0 Th/cmm (4.8-10.8) L 10/01/17 07:00 RBC 4.09 Mil/cmm (3.80-5.20) 10/01/17 07:00 Hgb 12.6 gm/dL (12-16) 10/01/17 07:00 Hct 37.4 % (41.0-60) L 10/01/17 07:00 MCV 91.5 fl (81-100) 10/01/17 07:00 MCH 30.8 pg (27.0-31.0) 10/01/17 07:00 MCHC Differential 33.7 pg (28.0-36.0) 10/01/17 07:00 RDW 16.5 % (11.5-20.0) 10/01/17 07:00 Plt Count 73 Th/cmm (150-400) L 10/01/17 07:00 MPV 7.7 fl 10/01/17 07:00 Neutrophils % 61.1 % (40.0-80.0) 10/01/17 07:00 Lymphocytes % 24.6 % (20.0-50.0) 10/01/17 07:00 Monocytes % 10.0 % (2.0-10.0) 10/01/17 07:00 Eosinophils % 3.6 % (0.0-5.0) 10/01/17 07:00 Basophils % 0.7 % (0.0-2.0) 10/01/17 07:00 PT 11.4 SECONDS (9.5-11.5) 09/20/17 09:10 INR 1.09 (0.5-1.4) 09/20/17 09:10 PTT (Actin FS) 22.5 SECONDS (26.0-38.0) L 09/20/17 09:10 Fibrinogen 215.0 mg/dL (200.0-400.0) 09/20/17 09:10 Plt Function Studies SEE COMMENT 09/20/17 09:10 Sodium 140 mEq/L (136-145) 09/22/17 06:57 Potassium 3.6 mEq/L (3.5-5.1) 09/22/17 06:57 Chloride 106 mEq/L (98-107) 09/22/17 06:57 Carbon Dioxide 29.2 mEq/L (21.0-31.0) 09/22/17 06:57 Anion Gap 8.4 (7.0-16.0) 09/22/17 06:57 BUN 8 mg/dL (7-25) 09/22/17 06:57 Creatinine 0.6 mg/dL (0.6-1.2) 09/22/17 06:57 Est GFR ( Amer) > 60.0 ml/min (>90) 09/22/17 06:57 Est GFR (Non-Af Amer) > 60.0 ml/min 09/22/17 06:57 BUN/Creatinine Ratio 13.3 09/22/17 06:57 Glucose 87 mg/dL (70-105) 09/22/17 06:57 Hemoglobin A1c % 5.8 % (4.0-6.0) 09/18/17 20:50 Calcium 8.2 mg/dL (8.6-10.3) L 09/22/17 06:57 Magnesium 2.0 mg/dL (1.9-2.7) 09/18/17 20:50 Total Bilirubin 0.7 mg/dL (0.3-1.0) 09/18/17 20:50 AST 28 U/L (13-39) 09/18/17 20:50 ALT 26 U/L (7-52) 09/18/17 20:50 Alkaline Phosphatase 123 U/L (34-104) H 09/18/17 20:50 Troponin I 0.04 ng/mL (0.01-0.05) 09/18/17 20:50 B-Natriuretic Peptide 31.5 pg/mL (5.0-100.0) 09/18/17 20:50 Total Protein 5.1 gm/dL (6.0-8.3) L 09/18/17 20:50 Albumin 2.7 gm/dL (3.7-5.3) L 09/18/17 20:50 Globulin 2.4 gm/dL 09/18/17 20:50 Albumin/Globulin Ratio 1.1 (1.0-1.8) 09/18/17 20:50 Vitamin B12 627 pg/mL (232-1245) 09/28/17 15:20 Folic Acid >20.0 ng/mL (>3.0) 09/28/17 15:20 RPR NONREACTIVE (NONREACTIVE) 09/18/17 20:50 - Physical Exam Vitals and I&O: Vital Signs Temp 98.1 F 10/01/17 10:57 Pulse 92 10/01/17 10:57 Resp 19 10/01/17 10:57 BP 124/72 10/01/17 10:57 Pulse Ox 95 10/01/17 10:57 Intake & Output 09/30/17 10/01/17 10/01/17 18:59 06:59 18:59 Intake Total 950 360 Balance 950 360 Intake: Oral 950 360 Other: # Voids 4 1 # Bowel Movements 0 0 Active Medications: Current Medications Acetaminophen (Tylenol) 650 mg PO Q4HR PRN PRN Reason: Mild Pain / Temp above 100 Stop: 11/17/17 22:57 Last Admin: 09/25/17 21:15 Dose: 650 mg Acetylcysteine (Mucomyst 20%) 2 ml HHN Q8HRT [facility] Stop: 11/28/17 22:59 Last Admin: 10/01/17 07:33 Dose: Not Given Albuterol Sulfate (Albuterol 2.5mg/3ml Neb Ud) 2.5 mg HHN QIDRT [facility] Stop: 11/18/17 14:59 Last Admin: 10/01/17 07:33 Dose: Not Given Albuterol/Ipratropium (Duoneb Neb) 3 ml HHN Q4HRT PRN PRN Reason: Wheezing Stop: 11/28/17 01:15 Last Admin: 09/29/17 10:56 Dose: 3 ml Buspirone HCl (Buspar) 20 mg PO BID [facility]; Protocol Stop: 11/20/17 08:59 Last Admin: 10/01/17 08:41 Dose: 20 mg Duloxetine HCl (Cymbalta) 60 mg PO DAILY [facility]; Protocol Stop: 11/21/17 08:59 Last Admin: 10/01/17 08:41 Dose: 60 mg Famotidine (Pepcid) 20 mg PO BID [facility]INE Stop: 11/18/17 08:59 Last Admin: 10/01/17 08:41 Dose: 20 mg Furosemide (Lasix) 40 mg PO DAILY [facility] Stop: 11/20/17 14:09 Last Admin: 10/01/17 08:44 Dose: 40 mg Gabapentin (Neurontin) 600 mg PO Q8H JACQUELINE Stop: 11/18/17 05:59 Last Admin: 10/01/17 06:21 Dose: 600 mg Hydrocortisone (Hydrocortisone 1%) 1 appl TP BID JACQUELINE Stop: 11/27/17 16:59 Last Admin: 10/01/17 08:45 Dose: 1 appl Ipratropium [place] (Atrovent Neb 0.5mg/2.5ml) 0.5 mg IH QIDRT JACQUELINE Stop: 11/18/17 14:59 Last Admin: 10/01/17 07:33 Dose: Not Given Lamotrigine (Lamictal) 200 mg PO BID [facility]; Protocol Stop: 11/18/17 08:59 Last Admin: 10/01/17 08:45 Dose: 200 mg Levothyroxine Sodium (Synthroid) 0.05 mg PO QDAC JACQUELINE Stop: 11/18/17 07:29 Last Admin: 10/01/17 08:15 Dose: 0.05 mg Lorazepam (Ativan) 0.5 mg PO Q6HR PRN; Protocol PRN Reason: Anxiety Stop: 11/21/17 10:06 Last Admin: 09/30/17 14:08 Dose: 0.5 mg Losartan Potassium (Cozaar) 25 mg PO DAILY JACQUELINE Stop: 11/18/17 08:59 Last Admin: 10/01/17 08:41 Dose: 25 mg Miscellaneous (Probiotic Screen) 1 ea MC PRN PRN PRN Reason: PROTOCOL Stop: 11/18/17 10:21 Nystatin (Nystop) 100 units TP BID [facility] Stop: 11/20/17 16:59 Last Admin: 10/01/17 08:52 Dose: 100 units Prednisone (Deltasone) 15 mg PO DAILY [facility]INE Stop: 11/18/17 08:59 Last Admin: 10/01/17 08:44 Dose: 15 mg Quetiapine Fumarate (Seroquel) 200 mg PO HS JACQUELINE Stop: 11/26/17 20:59 Last Admin: 09/30/17 21:17 Dose: 200 mg Zolpidem Tartrate (Ambien) 5 mg PO HS PRN PRN Reason: Insomnia Stop: 11/17/17 22:57 Last Admin: 09/30/17 21:17 Dose: 5 mg General: alert HEENT: NC/AT, PERRLA Neck: Supple Lungs: ronchi Cardiovascular: RRR, Normal S1, Normal S2 Abdomen: soft, non-tender, non-distended Neurological: no change Internal Medicine Assmt/Plan - Assessment Assessment: copd htn hypothyroidism right hand abrasion hyperglycemia low albumin obesity - Plan Plan: supplemental oxygen as needed bronchodilators as needed monitor glucose continue current plan of care Nutritional Asmnt/Malnutr-PDOC - Dietary Evaluation Malnutrition Findings (Please click <Entered> for more info): Nutritional Asmnt/Malnutrition Start: 09/21/17 17: 29 Text: Status: Complete Freq: Protocol: Document 09/21/17 17:29 [email or web address] (Rec: 09/21/17 17:36 LCCLAUDIA [email or web address]) Nutritional Asmnt/Malnutrition Patient General Information Nutritional Screening Moderate Risk Diagnosis psychosis NOS Pertinent Medical Hx/Surgical Hx COPD, stroke HTN, hypothyroidism, bronchitis Subjective Information Per EMR, PO itnake 75-100%. Current Diet Order/ Nutrition Support regular Pertinent Medications pepcid, levqauin, synthroid, seroquel Pertinent Labs 09/18 glucose 174, A1c 5.8 Nutritional Hx/Data Height 5 ft 2 in Height (Calculated Centimeters) 157.5 Current Weight (lbs) 155 lb Weight (Calculated Kilograms) 70.3 Weight (Calculated Grams) 62569.8 [place] Body Weight 110 Body Mass Index (BMI) 28.3 Weight Status Overweight GI Symptoms GI Symptoms None Last BM 09/20 Difficult in: None Skin Integrity/Comment: intact Current %PO Good (75-100%) Estimated Nutritional Goals BEE in Kcals: Adj wt of IBW Calories/Kcals/Kg 25-30 adj wt 55kg Kcals Calculated 2492-7890 Protein: Adj wt of IBW Protein g/k-1.2 Protein Calculated 55-66 Fluid: ml 1375-1650ml (1ml/kcal) Nutritional Problem No current Nutrition Prob Problem N/A Malnutrition Alert Is there a minimum of two criteria No selected? Query Text:Check all the applicable criteria. A minimum of two criteria are recommended for diagnosis of either severe or non-severe malnutrition. Malnutrition Related to Morbid Obesity Malnutrition related to morbid obesity No Intervention/Recommendation Comments 1. Continue with current diet as ordered. Monitor glucose level. If glucose high, consider adding CCHO diet. 2. Monitor PO intake, wt, labs and skin integrity 3. F/U as low risk in 7 days, 09/28 Expected Outcomes/Goals Expected Outcomes/Goals 1. PO intake to meet at least 75% of nutritional needs. 2. Wt stability, skin to remain intact, labs to approach WNL.
--- NOTE | 2017-10-01 20:40 | Progress Notes ---
DATE: 10/01/2017 PSYCHIATRIC PROGRESS NOTE SUBJECTIVE: Staff was spoken to. The patient is irritable. Affect is constricted. The patient is reporting yesterday that she has been feeling much better. The swelling of the foot has gone down and the bruises have been resolving and it has been decided to discharge the patient today for followup on outpatient basis, but this morning the patient is stating that she would like to stay in here because she feels more comfortable rather than going to the placement. ASSESSMENT: The patient is stabilizing. PLAN: Plan to discharge the patient today for followup on outpatient basis. JOB# [id number]
== END 2017-10-01 14:55 | DRG 885 ==
LOC: ER 20:07 → GERO2 22:00 → GERO 09-20 18:10
PROVIDERS: ADMIT Psychiatry & Neurology Psychiatry; ATTEND Psychiatry & Neurology Psychiatry
DX: F31.5 Bipolar disorder, current episode depressed, severe, with psychotic features (principal); E43 Unspecified severe protein-calorie malnutrition; I11.0 Hypertensive heart disease with heart failure; F41.9 Anxiety disorder, unspecified; Z66 Do not resuscitate; J44.9 Chronic obstructive pulmonary disease, unspecified; E03.9 Hypothyroidism, unspecified; E66.9 Obesity, unspecified; F17.210 Nicotine dependence, cigarettes, uncomplicated; R73.9 Hyperglycemia, unspecified; E78.5 Hyperlipidemia, unspecified; I50.9 Heart failure, unspecified; E07.89 Other specified disorders of thyroid; F29 Unspecified psychosis not due to a substance or known physiological condition; S60.511A Abrasion of right hand, initial encounter; S50.12XA Contusion of left forearm, initial encounter; S50.11XA Contusion of right forearm, initial encounter; D69.6 Thrombocytopenia, unspecified; Z86.73 Personal history of transient ischemic attack (TIA), and cerebral infarction without residual deficits; Z68.28 Body mass index [BMI] 28.0-28.9, adult
CPT/HCPCS: 36415-UA; 71045-TC; 80048-TC; 80053-TC; 82607-90; 82746-90; 83036-90; 83735-TC; 83880-TC; 84484-TC; 85007-TC; 85025-TC; 85027-TC; 85384-TC; 85610-TC; 85999-90; 86592-TC; 90779; 93005; 93970-TC-50; 93971-TC-RT; 94640; 94760; J7613; Z7610

== ENCOUNTER 2017-12-06 20:56 | Inpatient (IN) | payer MEDICARE, OTHER ==
[2017-12-07 00:05] VITALS: BP 111/62
[2017-12-07] MEDS ORDERED: Maalox 30 mL Cup PO PRN (00:05)
[2017-12-07] MEDS ORDERED: Magnesium Hydroxide (MOM) 30 mL UDC PO PRN (00:05)
[2017-12-07] MEDS: Levothyroxine 0.05 Mg Tab PO SCH (06:41)
[2017-12-07] MEDS: Lactulose 10 Gm/15 mL 30mL UDC PO SCH (10:00)
[2017-12-07] MEDS: NIFEdipine 30 mg ER Tab PO SCH (10:00)
[2017-12-07] MEDS: Multivitamin Tab PO SCH (10:00)
[2017-12-07] MEDS ORDERED: Haloperidol Lactate 5 mg/mL 1mL Vial IM ONE ×2 (11:14→11:20)
[2017-12-07] MEDS ORDERED: Haloperidol Lactate 5 mg/mL 1mL Vial ONE (11:14)
[2017-12-07] MEDS ORDERED: Albuterol/Ipratropium Neb 3 ML AERS HHN PRN (13:07)
[2017-12-07] MEDS ORDERED: Albuterol Nebulizer 2.5mg/3mL HHN PRN (13:07)
--- NOTE | 2017-12-07 13:42 | History & Physical ---
ADMIT DATE: 12/06/2017 CHIEF COMPLAINT: Admitted to [facility]. The patient was transferred from acute hospital. HISTORY OF PRESENT ILLNESS: This is a 67-year-old female with history of COPD, hypertension, hypothyroidism, diabetes, bipolar admitted in the [facility]. The patient was cleared medically and transferred for continued care and treatment. The patient apparently has been agitated as a skin tear in the upper extremity worse in the right. PAST MEDICAL HISTORY: As mentioned in history present illness. PAST SURGICAL HISTORY: Unable to obtain from the patient. ALLERGIES: AMOXICILLIN. MEDICATIONS: Cymbalta, Neurontin, Lamictal, Synthroid, Cozaar, Seroquel. FAMILY HISTORY: Noncontributory. SOCIAL HISTORY: The patient lives in long term. The patient requiring 24-hour total care. REVIEW OF SYSTEMS: This is limited secondary to pain, comatose state. We will try to obtain more detailed review of system at a later date done by members, Nell Nathalie, and daughter at number [phone]. We will also try to get information from nursing staff and David, . PHYSICAL EXAMINATION: VITAL SIGNS: Blood pressure 120/57, respiration 18, pulse 83, temperature 98.6. GENERAL: Elderly female, appears stated age, mildly obese. NECK: Supple. No mass. LUNGS: Equal breath sounds, otherwise clear to auscultation. HEART: Regular rate and rhythm without appreciable murmurs. ABDOMEN: Soft, globular. EXTREMITIES: Positive excoriations and skin tear, multiple upper extremity. Please see picture. NEUROLOGIC: Limited. LABORATORY DATA: Done at outside hospital, WBC 6.4, hemoglobin 13, platelets 122. Sodium 145, potassium 4.0, BUN 40, creatinine 0.8. ASSESSMENT AND PLAN: 1. Chronic obstructive pulmonary disease. 2. History of stroke. 3. Hypertension. 4. Hypothyroidism. 5. Obesity. 6. Diabetes. 7. Right upper extremity abrasion and skin tear. PLAN: We will continue the patient with wound care. The patient also on bronchodilator treatments. We will titrate the patient's antihypertensive medication. Continue Synthroid. Continue with current course and continue the following. JOB# [id number]
[2017-12-07] MEDS: NYSTATIN 100000 UNITS/GM POWD TP SCH (16:46)
--- NOTE | 2017-12-07 22:20 | Psychiatric Evaluation ---
DATE OF SERVICE: 12/07/2017 IDENTIFYING DATA: The patient is a 67-year-old female resident of a nursing home facility. Information obtained by directly interviewing the patient as well as reviewing the admission papers and they are reliable. JUSTIFICATION OF HOSPITALIZATION: The patient is admitted on a voluntary basis from the [facility] for aggressive behavior and being a danger to others. CHIEF COMPLAINT: "I do not know why they have to bring me in here." HISTORY OF PRESENT ILLNESS: This is the second psychiatric hospitalization to [facility] for this patient who is known to me from the previous psychiatric hospitalizations and treatments. On the day of the hospitalization, the patient has been taken to the [facility] where the patient was assessed and brought over here for aggressive behavior. During the interview, I was trying to get some information, but the patient has been getting easily irritable and angry and is stating that there is no reason for her to be in here. The patient is reported to have been having problem with the sleep and appetite. The patient has been on Seroquel that has been given at 200 mg at bedtime and 100 mg in the morning and trazodone 50 mg. The patient during the evaluation has been screaming and yelling and the patient has to be given a dose of 1 mg of Ativan p.o. IM now. The patient is also reported to have been getting the Lamictal 200 mg. PAST PSYCHIATRIC HISTORY: Significant for the patient being treated for mood swings and the agitation in the past. The patient had been diagnosed to have bipolar disorder with the depression. MEDICAL HISTORY: Physical examination is requested to be done by Dr. Navarrete. SUBSTANCE ABUSE HISTORY: None. PHYSICAL OR SEXUAL ABUSE HISTORY: None. LEGAL PROBLEMS: None at this time. STRENGTH AND ASSETS: The patient is motivated. MENTAL STATUS EXAMINATION: The patient is a resident of a nursing home facility and the patient is reported to have been getting easily irritable, angry and screaming and yelling. The patient could not be contained. The patient has paranoid delusions, but denies any command hallucinations. During the evaluation, the patient is stating that she has been taking all her medications and could not figure it out why she has to be in here. The patient is denying any command hallucinations. The patient's behavior is a clear danger to self and others at this time. DIAGNOSTIC IMPRESSION: AXIS I: Bipolar disorder mixed with psychotic symptoms. AXIS II: None. AXIS III: As per Dr. Navarrete. IMMEDIATE TREATMENT PLAN: The patient is going to be observed on inpatient unit, provided with supportive psychotherapy. The patient is going to be closely monitored. We encouraged to participate in the groups and verbalize the concerns. Once stabilized, the patient is going to be discharged to self to be followed up on an outpatient basis. ESTIMATED LENGTH OF STAY: Three to five days. DISCHARGE CRITERIA: When the patient is no longer a threat to self or others and be able to cope up with the stress. JOB# [id number]
[2017-12-08] MEDS: Hydrocodone/APAP 10 mg/325 mg Tab PO PRN ×3 (01:27→17:44)
[2017-12-08] MEDS: Levothyroxine 0.05 Mg Tab PO SCH (06:34)
[2017-12-08] MEDS ORDERED: Levothyroxine 0.05 Mg Tab PO SCH (07:30)
[2017-12-08] MEDS ORDERED: Haloperidol Lactate 5 mg/mL 1mL Vial ONE (07:55)
[2017-12-08] MEDS: Haloperidol Lactate 5 mg/mL 1mL Vial IM PRN (08:16)
[2017-12-08] MEDS: Multivitamin Tab PO SCH (09:47)
[2017-12-08] MEDS: Lactulose 10 Gm/15 mL 30mL UDC PO SCH (09:47)
[2017-12-08] MEDS: NIFEdipine 30 mg ER Tab PO SCH (09:50)
[2017-12-08] MEDS: NYSTATIN 100000 UNITS/GM POWD TP SCH ×2 (09:53→17:45)
--- NOTE | 2017-12-08 14:28 | Internal Medicine Prog Note ---
Internal Medicine Subjective - Subjective Patient seen and examined:: with staff, chart reviewed Patient is:: asleep, verbal, interactive, agitated, confused Per staff patient has:: no adverse event, poor appetite, noncompliant, tolerating meds Internal Medicine Objective - Results Recent Labs: Laboratory Last Values POC Glucose 130 MG/DL (70 - 105) H 12/06/17 23:03 - Physical Exam Vitals and I&O: Vital Signs Temp 100.2 F 12/07/17 21:06 Pulse 72 12/08/17 09:50 Resp 20 12/07/17 21:06 BP 134/78 12/08/17 09:50 Pulse Ox 93 12/07/17 21:06 Intake & Output 12/07/17 12/08/17 12/08/17 18:59 06:59 18:59 Intake Total 1500 Balance 1500 Intake: Oral 1500 Other: # Voids 3 # Bowel Movements 0 Active Medications: Current Medications Acetaminophen (Tylenol) 650 mg PO Q4HR PRN PRN Reason: Mild Pain / Temp above 100 Stop: 02/05/18 13:06 Acetaminophen/Hydrocodone Bitart ([place] 10 Mg/325 Mg) 1 tab PO Q6H PRN PRN Reason: MOD-SEV pain (level 4-10) Stop: 02/05/18 00:33 Last Admin: 12/08/17 10:34 Dose: 1 tab Al Hydrox/Mg Hydrox/Simethicone (Maalox) 30 ml PO Q4HR PRN PRN Reason: GI DISTRESS Stop: 02/05/18 00:04 Albuterol/Ipratropium (Duoneb Neb) 3 ml HHN Q4HRT PRN PRN Reason: Wheezing Stop: 02/05/18 13:06 Aspirin (Ecotrin) 81 mg PO DAILY [facility] Stop: 02/05/18 08:59 Last Admin: 12/08/17 09:50 Dose: 81 mg Buspirone HCl (Buspar) 20 mg PO BID [facility]; Protocol Stop: 02/05/18 16:59 Last Admin: 12/08/17 09:49 Dose: 20 mg Duloxetine HCl (Cymbalta) 60 mg PO DAILY [facility]; Protocol Stop: 02/06/18 08:59 Last Admin: 12/08/17 09:51 Dose: 60 mg Famotidine (Pepcid) 20 mg PO BID [facility] Stop: 02/05/18 16:59 Last Admin: 12/08/17 09:50 Dose: 20 mg Gabapentin (Neurontin) 600 mg PO Q8H [facility] Stop: 02/05/18 20:59 Last Admin: 12/08/17 05:08 Dose: Not Given Haloperidol Lactate (Haldol) 5 mg IM NOW PRN PRN Reason: Agitation Stop: 02/06/18 07:55 Last Admin: 12/08/17 08:16 Dose: 5 mg Hydrocortisone (Hydrocortisone 1%) 1 appl TP BID [facility] Stop: 02/05/18 16:59 Last Admin: 12/08/17 09:52 Dose: 1 appl Lactulose (Cephulac) 20 gm PO DAILY [facility] Stop: 02/05/18 08:59 Last Admin: 12/08/17 09:47 Dose: 20 gm Lamotrigine (Lamictal) 200 mg PO BID [facility]; Protocol Stop: 02/05/18 16:59 Last Admin: 12/08/17 09:51 Dose: 200 mg Levothyroxine Sodium (Synthroid) 0.05 mg PO QDAC [facility] Stop: 02/05/18 07:29 Last Admin: 12/08/17 06:34 Dose: Not Given Lorazepam (Ativan) 0.5 mg PO Q6HR PRN; Protocol PRN Reason: Anxiety Stop: 02/05/18 13:06 Last Admin: 12/08/17 09:50 Dose: 0.5 mg Losartan Potassium (Cozaar) 25 mg PO DAILY [facility] Stop: 02/06/18 08:59 Last Admin: 12/08/17 09:50 Dose: 25 mg Magnesium Hydroxide (Milk Of Magnesia) 30 ml PO HS PRN PRN Reason: Constipation Multivitamins/Vitamin C (Theragran) 1 tab PO DAILY [facility] Stop: 02/05/18 08:59 Last Admin: 12/08/17 09:47 Dose: 1 tab Nifedipine (Procardia Xl) 30 mg PO DAILY [facility] Stop: 02/05/18 08:59 Last Admin: 12/08/17 09:50 Dose: 30 mg Nystatin (Nystop) 100 units TP BID [facility] Stop: 02/05/18 16:59 Last Admin: 12/08/17 09:53 Dose: 100 units Olanzapine (Zyprexa) 5 mg IM DAILY PRN; Protocol PRN Reason: Agitation Stop: 02/05/18 00:20 Prednisone (Deltasone) 15 mg PO DAILY [facility] Stop: 02/06/18 08:59 Last Admin: 12/08/17 09:47 Dose: 15 mg Quetiapine Fumarate (Seroquel) 200 mg PO HS [facility]; Protocol Stop: 02/05/18 20:59 Last Admin: 12/07/17 21:00 Dose: Not Given Quetiapine Fumarate (Seroquel) 200 mg PO DAILY [facility]; Protocol Stop: 02/07/18 08:59 Simvastatin (Zocor) 20 mg PO HS [facility]; Protocol Stop: 02/05/18 20:59 Last Admin: 12/07/17 21:00 Dose: Not Given Trazodone HCl (Desyrel) 50 mg PO HS PRN; Protocol PRN Reason: Insomnia Stop: 02/05/18 20:59 Zolpidem Tartrate (Ambien) 5 mg PO HS PRN PRN Reason: Insomnia Stop: 02/05/18 13:06 General: demented HEENT: NC/AT, PERRLA, poor dentition Neck: Supple, No JVD, No LAD Lungs: CTAB Cardiovascular: RRR, Normal S1, Normal S2 Abdomen: soft, non-tender, globular, positive bowel sound Extremities: excoriation Neurological: no change, disorganized Internal Medicine Assmt/Plan - Assessment Assessment: ASSESSMENT AND PLAN: 1. Chronic obstructive pulmonary disease. 2. History of stroke. 3. Hypertension. 4. Hypothyroidism. 5. Obesity. 6. Diabetes. 7. Right upper extremity abrasion and skin tear. PLAN: We will continue the patient with wound care. The patient also on bronchodilator treatments. We will titrate the patient's antihypertensive medication. Continue Synthroid. Continue with current course and continue the following. - Plan Plan: as above wound care per protocol
--- NOTE | 2017-12-08 17:29 | Progress Notes ---
DATE: 12/08/2017 SUBJECTIVE: Staff was spoken to. The patient is interviewed. Mood is noted to be irritable. Affect is constricted. Insight and judgment at this time are noted to be still impaired. Impulse control is noted to be limited. Coping skills are noted to be limited. The patient has been having difficult time to cope with the stress. The patient has to be given a dose of the Haldol, Ativan and Benadryl to calm her down. The patient is screaming and yelling, cursing the staff at this time. ASSESSMENT AND PLAN: The patient is still grossly psychotic and impulsive and the patient needs to be redirected at this time. The patient is currently on the buspirone 20 mg b.i.d., and duloxetine 60 mg on a daily basis and is also on the gabapentin and lamotrigine, but the patient has been having difficult time at this time. Plan to increase to the dose on the Seroquel to 200 mg in the morning and continue the current medications. The patient is not ready to be discharged to a lower level of care in view of her paranoia and acute mood swings. JOB# [id number]
[2017-12-09] MEDS: Levothyroxine 0.05 Mg Tab PO SCH (06:48)
[2017-12-09] MEDS: Multivitamin Tab PO SCH (09:07)
[2017-12-09] MEDS: NYSTATIN 100000 UNITS/GM POWD TP SCH ×2 (09:08→17:30)
[2017-12-09] MEDS: NIFEdipine 30 mg ER Tab PO SCH (09:44)
[2017-12-09] MEDS: Lactulose 10 Gm/15 mL 30mL UDC PO SCH (09:44)
[2017-12-09] MEDS: Hydrocodone/APAP 10 mg/325 mg Tab PO PRN ×2 (10:06→21:19)
--- NOTE | 2017-12-09 13:50 | Internal Medicine Prog Note ---
Internal Medicine Subjective - Subjective Patient seen and examined:: with staff, chart reviewed Patient is:: asleep, verbal, interactive, agitated, confused Per staff patient has:: no adverse event, poor appetite, noncompliant, tolerating meds Internal Medicine Objective - Results Recent Labs: Laboratory Last Values POC Glucose 130 MG/DL (70 - 105) H 12/06/17 23:03 - Physical Exam Vitals and I&O: Vital Signs Temp 98 F 12/09/17 06:45 Pulse 84 12/09/17 06:57 Resp 18 12/09/17 06:57 BP 94/56 12/09/17 06:45 Pulse Ox 96 12/09/17 06:57 Intake & Output 12/08/17 12/09/17 12/09/17 18:59 06:59 18:59 Intake Total 1000 720 Balance 1000 720 Intake: Oral 1000 720 Other: # Voids 3 1 # Bowel Movements 1 Active Medications: Current Medications Acetaminophen (Tylenol) 650 mg PO Q4HR PRN PRN Reason: Mild Pain / Temp above 100 Stop: 02/05/18 13:06 Acetaminophen/Hydrocodone Bitart ([place] 10 Mg/325 Mg) 1 tab PO Q6H PRN PRN Reason: MOD-SEV pain (level 4-10) Stop: 02/05/18 00:33 Last Admin: 12/09/17 10:06 Dose: 1 tab Al Hydrox/Mg Hydrox/Simethicone (Maalox) 30 ml PO Q4HR PRN PRN Reason: GI DISTRESS Stop: 02/05/18 00:04 Albuterol/Ipratropium (Duoneb Neb) 3 ml HHN Q4HRT PRN PRN Reason: Wheezing Stop: 02/05/18 13:06 Aspirin (Ecotrin) 81 mg PO DAILY [facility] Stop: 02/05/18 08:59 Last Admin: 12/09/17 09:07 Dose: 81 mg Buspirone HCl (Buspar) 20 mg PO BID [facility]; Protocol Stop: 02/05/18 16:59 Last Admin: 12/09/17 09:04 Dose: 20 mg Duloxetine HCl (Cymbalta) 60 mg PO DAILY [facility]; Protocol Stop: 02/06/18 08:59 Last Admin: 12/09/17 09:05 Dose: 60 mg Famotidine (Pepcid) 20 mg PO BID [facility] Stop: 02/05/18 16:59 Last Admin: 12/09/17 09:08 Dose: 20 mg Gabapentin (Neurontin) 600 mg PO Q8H [facility] Stop: 02/05/18 20:59 Last Admin: 12/09/17 05:41 Dose: 600 mg Haloperidol Lactate (Haldol) 5 mg IM NOW PRN PRN Reason: Agitation Stop: 02/06/18 07:55 Last Admin: 12/08/17 08:16 Dose: 5 mg Hydrocortisone (Hydrocortisone 1%) 1 appl TP BID [facility] Stop: 02/05/18 16:59 Last Admin: 12/09/17 09:44 Dose: Not Given Lactulose (Cephulac) 20 gm PO DAILY [facility] Stop: 02/05/18 08:59 Last Admin: 12/09/17 09:44 Dose: Not Given Lamotrigine (Lamictal) 200 mg PO BID [facility]; Protocol Stop: 02/05/18 16:59 Last Admin: 12/09/17 09:07 Dose: 200 mg Levothyroxine Sodium (Synthroid) 0.05 mg PO QDAC [facility] Stop: 02/05/18 07:29 Last Admin: 12/09/17 06:48 Dose: 0.05 mg Lorazepam (Ativan) 0.5 mg PO Q6HR PRN; Protocol PRN Reason: Anxiety Stop: 02/05/18 13:06 Last Admin: 12/09/17 10:06 Dose: 0.5 mg Magnesium Hydroxide (Milk Of Magnesia) 30 ml PO HS PRN PRN Reason: Constipation Multivitamins/Vitamin C (Theragran) 1 tab PO DAILY [facility] Stop: 02/05/18 08:59 Last Admin: 12/09/17 09:07 Dose: 1 tab Nifedipine (Procardia Xl) 30 mg PO DAILY [facility] Stop: 02/05/18 08:59 Last Admin: 12/09/17 09:44 Dose: Not Given Nystatin (Nystop) 100 units TP BID [facility] Stop: 02/05/18 16:59 Last Admin: 12/09/17 09:08 Dose: 100 units Prednisone (Deltasone) 10 mg PO DAILY [facility] Stop: 02/08/18 08:59 Quetiapine Fumarate (Seroquel) 200 mg PO HS [facility]; Protocol Stop: 10/16/18 20:59 Last Admin: 12/08/17 21:23 Dose: 200 mg Quetiapine Fumarate (Seroquel) 200 mg PO DAILY [facility]; Protocol Stop: 02/07/18 08:59 Last Admin: 12/09/17 09:08 Dose: 200 mg Simvastatin (Zocor) 20 mg PO HS [facility]; Protocol Stop: 02/05/18 20:59 Last Admin: 12/08/17 21:23 Dose: 20 mg Trazodone HCl (Desyrel) 50 mg PO HS PRN; Protocol PRN Reason: Insomnia Stop: 02/05/18 20:59 Zolpidem Tartrate (Ambien) 5 mg PO HS PRN PRN Reason: Insomnia Stop: 02/05/18 13:06 Last Admin: 12/08/17 21:23 Dose: 5 mg General: demented HEENT: NC/AT, PERRLA, poor dentition Neck: Supple, No JVD, No LAD Lungs: CTAB Cardiovascular: RRR, Normal S1, Normal S2 Abdomen: soft, non-tender, globular, positive bowel sound Extremities: excoriation Neurological: no change, disorganized Internal Medicine Assmt/Plan - Assessment Assessment: ASSESSMENT AND PLAN: 1. Chronic obstructive pulmonary disease. 2. History of stroke. 3. Hypertension. 4. Hypothyroidism. 5. Obesity. 6. Diabetes. 7. Right upper extremity abrasion and skin tear. PLAN: We will continue the patient with wound care. The patient also on bronchodilator treatments. We will titrate the patient's antihypertensive medication. Continue Synthroid. Continue with current course and continue the following. - Plan Plan: as above wound care per protocol
--- NOTE | 2017-12-09 17:46 | Progress Notes ---
DATE: 12/09/2017 SUBJECTIVE: Staff was spoken to. The patient is interviewed. Mood is noted to be irritable. Affect is constricted. The patient is very argumentative even she gets the medication. The patient is coming back and is stating that she has not got the home medications. The patient has been having difficult time to cope with the stress. The patient has been currently on 200 mg twice a day of the Seroquel and has been able to tolerate the medications. No side effects to the medications are noted. ASSESSMENT: The patient is still impulsive. PLAN: To continue the patient with supportive therapy, encouraged the patient to verbalize the concerns rather than to act out. In view of the patient being on Haldol, Zyprexa, and Seroquel, it is decided to discontinue the Zyprexa and continue the patient on haloperidol on a p.r.n. basis and follow the patient up. Please note that the patient is not ready to be discharged to a lower level of care yet. In view of her acute psychosis. JOB# [id number]
[2017-12-10] MEDS: Hydrocodone/APAP 10 mg/325 mg Tab PO PRN ×2 (06:08→19:09)
[2017-12-10] MEDS: Levothyroxine 0.05 Mg Tab PO SCH (06:33)
[2017-12-10] MEDS: Lactulose 10 Gm/15 mL 30mL UDC PO SCH (08:30)
[2017-12-10] MEDS: NIFEdipine 30 mg ER Tab PO SCH (08:32)
[2017-12-10] MEDS: Multivitamin Tab PO SCH (08:32)
--- NOTE | 2017-12-10 14:39 | Internal Medicine Prog Note ---
Internal Medicine Subjective - Subjective Service Date: 12/10/17 Patient is:: asleep, verbal, interactive, agitated, confused Per staff patient has:: no adverse event, poor appetite, noncompliant, tolerating meds Internal Medicine Objective - Results Recent Labs: Laboratory Last Values POC Glucose 130 MG/DL (70 - 105) H 12/06/17 23:03 - Physical Exam Vitals and I&O: Vital Signs Temp 99.9 F 12/10/17 06:21 Pulse 93 12/10/17 08:32 Resp 18 12/10/17 07:10 BP 144/78 12/10/17 08:32 Pulse Ox 96 12/10/17 07:10 Intake & Output 12/09/17 12/10/17 12/10/17 18:59 06:59 18:59 Intake Total 300 Balance 300 Intake: Oral 300 Other: # Voids 2 # Bowel Movements 0 Active Medications: Current Medications Acetaminophen (Tylenol) 650 mg PO Q4HR PRN PRN Reason: Mild Pain / Temp above 100 Stop: 02/05/18 13:06 Acetaminophen/Hydrocodone Bitart ([place] 10 Mg/325 Mg) 1 tab PO Q6H PRN PRN Reason: MOD-SEV pain (level 4-10) Stop: 02/05/18 00:33 Last Admin: 12/10/17 06:08 Dose: 1 tab Al Hydrox/Mg Hydrox/Simethicone (Maalox) 30 ml PO Q4HR PRN PRN Reason: GI DISTRESS Stop: 02/05/18 00:04 Albuterol/Ipratropium (Duoneb Neb) 3 ml HHN Q4HRT PRN PRN Reason: Wheezing Stop: 02/05/18 13:06 Aspirin (Ecotrin) 81 mg PO DAILY [facility] Stop: 02/05/18 08:59 Last Admin: 12/10/17 08:33 Dose: 81 mg Buspirone HCl (Buspar) 20 mg PO BID [facility]; Protocol Stop: 02/05/18 16:59 Last Admin: 12/10/17 08:33 Dose: 20 mg Duloxetine HCl (Cymbalta) 60 mg PO DAILY [facility]; Protocol Stop: 02/06/18 08:59 Last Admin: 12/10/17 08:33 Dose: 60 mg Famotidine (Pepcid) 20 mg PO BID [facility] Stop: 02/05/18 16:59 Last Admin: 12/10/17 08:33 Dose: 20 mg Gabapentin (Neurontin) 600 mg PO Q8H [facility] Stop: 02/05/18 20:59 Last Admin: 12/10/17 13:16 Dose: 600 mg Haloperidol Lactate (Haldol) 5 mg IM NOW PRN PRN Reason: Agitation Stop: 02/06/18 07:55 Last Admin: 12/08/17 08:16 Dose: 5 mg Hydrocortisone (Hydrocortisone 1%) 1 appl TP BID [facility] Stop: 02/05/18 16:59 Last Admin: 12/09/17 17:30 Dose: Not Given Lactulose (Cephulac) 20 gm PO DAILY [facility] Stop: 02/05/18 08:59 Last Admin: 12/10/17 08:30 Dose: 20 gm Lamotrigine (Lamictal) 200 mg PO BID [facility]; Protocol Stop: 02/05/18 16:59 Last Admin: 12/10/17 08:33 Dose: 200 mg Levothyroxine Sodium (Synthroid) 0.05 mg PO QDAC [facility] Stop: 02/05/18 07:29 Last Admin: 12/10/17 06:33 Dose: 0.05 mg Lorazepam (Ativan) 0.5 mg PO Q6HR PRN; Protocol PRN Reason: Anxiety Stop: 02/05/18 13:06 Last Admin: 12/10/17 13:16 Dose: 0.5 mg Magnesium Hydroxide (Milk Of Magnesia) 30 ml PO HS PRN PRN Reason: Constipation Multivitamins/Vitamin C (Theragran) 1 tab PO DAILY [facility] Stop: 02/05/18 08:59 Last Admin: 12/10/17 08:32 Dose: 1 tab Nifedipine (Procardia Xl) 30 mg PO DAILY [facility] Stop: 02/05/18 08:59 Last Admin: 12/10/17 08:32 Dose: 30 mg Nystatin (Nystop) 100 units TP BID [facility] Stop: 02/05/18 16:59 Last Admin: 12/09/17 17:30 Dose: Not Given Prednisone (Deltasone) 10 mg PO DAILY [facility] Stop: 02/08/18 08:59 Last Admin: 12/10/17 08:31 Dose: 10 mg Quetiapine Fumarate (Seroquel) 200 mg PO HS [facility]; Protocol Stop: 02/05/18 20:59 Last Admin: 12/09/17 20:54 Dose: 200 mg Quetiapine Fumarate (Seroquel) 200 mg PO DAILY [facility]; Protocol Stop: 02/07/18 08:59 Last Admin: 12/10/17 08:31 Dose: 200 mg Simvastatin (Zocor) 20 mg PO HS [facility]; Protocol Stop: 02/05/18 20:59 Last Admin: 12/09/17 20:54 Dose: 20 mg Trazodone HCl (Desyrel) 50 mg PO HS PRN; Protocol PRN Reason: Insomnia Stop: 02/05/18 20:59 Zolpidem Tartrate (Ambien) 5 mg PO HS PRN PRN Reason: Insomnia Stop: 02/05/18 13:06 Last Admin: 12/09/17 20:54 Dose: 5 mg General: demented HEENT: NC/AT, PERRLA, poor dentition Neck: Supple, No JVD, No LAD Lungs: CTAB Cardiovascular: RRR, Normal S1, Normal S2 Abdomen: soft, non-tender, globular, positive bowel sound Extremities: excoriation Neurological: no change, disorganized Internal Medicine Assmt/Plan - Assessment Assessment: ASSESSMENT AND PLAN: 1. Chronic obstructive pulmonary disease. 2. History of stroke. 3. Hypertension. 4. Hypothyroidism. 5. Obesity. 6. Diabetes. 7. Right upper extremity abrasion and skin tear. - Plan Plan: wound care fall precautions continue current plan of care Nutritional Asmnt/Malnutr-PDOC - Dietary Evaluation Malnutrition Findings (Please click <Entered> for more info): Nutritional Asmnt/Malnutrition Start: 12/10/17 13: 46 Text: Status: Complete Freq: Protocol: Document 12/10/17 13:46 LCHENG (Rec: 12/10/17 13:57 LCHENG [id number]) Nutritional Asmnt/Malnutrition Patient General Information Nutritional Screening Moderate Risk Diagnosis psychosis Pertinent Medical Hx/Surgical Hx COPD, HTN, hypothyroidism, DM, bipolar Subjective Information Pt seen having lunch in dining room, requesting chicken salad instead of the lunch she got. Pt always complained about food per [employer]. Per EMR, PO intake 100%. Current Diet Order/ Nutrition Support cardiac Pertinent Medications synthorid, theragran, seroquel Pertinent Labs 12/06 POC 130 Nutritional Hx/Data Height 5 ft 2 in Height (Calculated Centimeters) 157.5 Current Weight (lbs) 155 lb Weight (Calculated Kilograms) 70.3 Weight (Calculated Grams) 7[address]57.8 [place] Body Weight 110 Body Mass Index (BMI) 28.3 Weight Status Overweight GI Symptoms GI Symptoms None Last BM 12/08 Difficult in: None Skin Integrity/Comment: discoloration to arms and legs . skin intact Current %PO Good (75-100%) Estimated Nutritional Goals BEE in Kcals: Using Current wt Calories/Kcals/Kg 23-27 Kcals Calculated 3092-3775 Protein: Using Current wt Protein g/k.8-1 Protein Calculated 56-70 Fluid: ml 1610-1890ml (1ml/kcal) Nutritional Problem No current Nutrition Prob Problem N/A Malnutrition Alert Is there a minimum of two criteria No selected? Query Text:Check all the applicable criteria. A minimum of two criteria are recommended for diagnosis of either severe or non-severe malnutrition. Malnutrition Related to Morbid Obesity Malnutrition related to morbid obesity No Intervention/Recommendation Comments 1. Continue with current diet as ordered. 2. Monitor PO intake, wt, labs and skin integrity 3. F/U as low risk in 7 days, 12/17 Expected Outcomes/Goals Expected Outcomes/Goals 1. PO intake to meet at least 75% of nutritional needs. 2. Wt stability, skin to remain intact, labs to approach WNL.
[2017-12-10] MEDS: NYSTATIN 100000 UNITS/GM POWD TP SCH ×2 (19:07→19:08)
--- NOTE | 2017-12-11 02:21 | Progress Notes ---
DATE: 12/10/2017 SUBJECTIVE: Staff was spoken to. The patient is interviewed. Mood is noted to be irritable. Affect is constricted. Insight and judgment are noted to be still impaired. Impulse control is noted to be poor. Coping skills are also noted to be poor. The patient has been very argumentative. The patient is stating that she could not bear it out why she has to be here. The patient is also stating that she does not want to go back to the same facility that she came from. The patient has been having difficult time to cope with the stress. The patient is currently on 400 mg of the Seroquel and has been able to tolerate the medication. The patient is also on 60 mg of duloxetine and 20 mg b.i.d. of the BuSpar and planning to hold the medication now because the patient has been getting extremely ____. PLAN: To continue the patient with the supportive medications and follow. JOB# [id number]
--- NOTE | 2017-12-11 02:33 | Consultation ---
DATE OF CONSULTATION: 12/08/2017 REFERRING PHYSICIAN: Ravin Wayne MD TYPE OF CONSULTATION: Psychology. HISTORY OF PRESENT ILLNESS: The patient is a 67-year-old female. The patient is a resident of a fdc facility. At the time of this interview, the patient is yelling and screaming and is in the time out room. The patient's response to the clinical questions were loud. The patient is being somewhat aggressive verbally with yelling and screaming episodes. The following is by record review as well as the patient's self-report. The patient was transferred from [facility] due to aggressive behavior. The patient is stating that she does not understand why she is being hospitalized on a psychiatric unit. The patient has had a previous hospitalization here. The patient continued to perseverate on the issue of not needing to be hospitalized. The patient did not answer any other questions in the initial clinical interview. PAST MEDICAL HISTORY: Please see history and physical by Dr. Navarrete. PAST PSYCHIATRIC HISTORY: The patient has had 1 previous hospitalization here at [facility] on the Geropsychiatric unit. The patient has a history of bipolar disorder with depression. She is under the care of a psychiatrist at her placement. SUBSTANCE ABUSE HISTORY: The patient denies any history. PSYCHOSOCIAL HISTORY: The patient did not answer questions about occupational or educational history or jew affiliation. The patient did not answer questions about history of physical or sexual abuse. The patient did not answer questions about current legal problems. The patient continued to be loud with yelling and screaming episodes as well as pounding on the door of the time out seclusion room. Further evaluation will be completed upon the next visit. The patient is a resident of a fdc facility. MENTAL STATUS EXAMINATION: The patient appears to be her stated age. The patient's attitude is uncooperative. Eye contact is poor. Speech is loud and verbally abusive. The patient is screaming and yelling. Mood is angry. Affect is mood congruent and animated. The patient's behavior is uncontainable. The patient is exhibiting paranoid delusions. The patient did not answer questions about suicidal or homicidal ideation, plan or intention. The patient continued to state that she has been taking her medications regularly. The patient's behavior on the unit has been uncontrollable and currently is in time-out seclusion. Impulse control is impaired and inadequate. Concentration is poor. The patient's sensorium is alert and oriented to place and self. The patient did not participate in the memory assessment. The patient did not participate in interpretation of proverbs. The patient's coping strategies are severely impaired. Insight is impaired. Judgment is impaired. DIAGNOSTIC IMPRESSION: AXIS I: History of bipolar disorder mixed with psychotic symptoms. AXIS II: Deferred. AXIS III: Per Dr. Navarrete. TREATMENT PLAN: The patient has been seen by Dr. Wayne for psychiatric evaluation and for the management of the patient's psychotropic medications. We will provide supportive psychotherapy and include immediate de-escalation and limit setting. We will encourage the patient to be able to demonstrate emotional and self-regulation prior to being moved from her seclusion time out room. We will encourage the patient to continue to demonstrate this on the unit. We will provide motivational enhancement for the patient to become compliant and stay compliant with all aspects of her care and treatment. We will provide coping strategies for chronic severe long-term mental illness. We will provide coping strategies for phase of life issues. We will encourage the patient to be able to verbally contract for safety to include no harm to self and no harm to others prior to her discharge. Thank you, Dr. Wayne for this consult and the opportunity to participate in this patient's care. JOB# [id number] [email or web address]
[2017-12-11] MEDS: Levothyroxine 0.05 Mg Tab PO SCH (06:31)
[2017-12-11] MEDS: NYSTATIN 100000 UNITS/GM POWD TP SCH ×2 (09:36→17:15)
[2017-12-11] MEDS: Lactulose 10 Gm/15 mL 30mL UDC PO SCH (09:36)
[2017-12-11] MEDS: NIFEdipine 30 mg ER Tab PO SCH (09:37)
[2017-12-11] MEDS: Multivitamin Tab PO SCH (09:38)
--- NOTE | 2017-12-11 15:12 | Internal Medicine Prog Note ---
Internal Medicine Subjective - Subjective Service Date: 12/11/17 Patient is:: asleep, verbal, interactive, agitated, confused Per staff patient has:: no adverse event, poor appetite, noncompliant, tolerating meds Internal Medicine Objective - Results Recent Labs: Laboratory Last Values POC Glucose 130 MG/DL (70 - 105) H 12/06/17 23:03 - Physical Exam Vitals and I&O: Vital Signs Temp 100 F 12/11/17 06:30 Pulse 80 12/11/17 09:37 Resp 18 12/11/17 07:10 BP 125/67 12/11/17 09:37 Pulse Ox 94 12/11/17 07:10 Intake & Output 12/10/17 12/11/17 12/11/17 18:59 06:59 18:59 Intake Total 240 Balance 240 Intake: Oral 240 Other: # Voids 3 # Bowel Movements 0 Active Medications: Current Medications Acetaminophen (Tylenol) 650 mg PO Q4HR PRN PRN Reason: Mild Pain / Temp above 100 Stop: 02/05/18 13:06 Acetaminophen/Hydrocodone Bitart ([place] 10 Mg/325 Mg) 1 tab PO Q6H PRN PRN Reason: MOD-SEV pain (level 4-10) Stop: 02/05/18 00:33 Last Admin: 12/10/17 19:09 Dose: 1 tab Al Hydrox/Mg Hydrox/Simethicone (Maalox) 30 ml PO Q4HR PRN PRN Reason: GI DISTRESS Stop: 02/05/18 00:04 Albuterol/Ipratropium (Duoneb Neb) 3 ml HHN Q4HRT PRN PRN Reason: Wheezing Stop: 02/05/18 13:06 Aspirin (Ecotrin) 81 mg PO DAILY ON [facility] OF [facility] Stop: 02/05/18 08:59 Last Admin: 12/11/17 09:37 Dose: 81 mg Duloxetine HCl (Cymbalta) 60 mg PO DAILY ON [facility] OF [facility]; Protocol Stop: 02/06/18 08:59 Last Admin: 12/11/17 09:38 Dose: 60 mg Famotidine (Pepcid) 20 mg PO BID [facility] OF [facility] Stop: 02/05/18 16:59 Last Admin: 12/11/17 09:38 Dose: 20 mg Gabapentin (Neurontin) 600 mg PO Q8H ON [facility] OF [facility] Stop: 02/05/18 20:59 Last Admin: 12/11/17 14:23 Dose: 600 mg Haloperidol Lactate (Haldol) 5 mg IM NOW PRN PRN Reason: Agitation Stop: 02/06/18 07:55 Last Admin: 12/08/17 08:16 Dose: 5 mg Hydrocortisone (Hydrocortisone 1%) 1 appl TP BID [facility] Stop: 02/05/18 16:59 Last Admin: 12/11/17 09:36 Dose: 1 appl Lactulose (Cephulac) 20 gm PO DAILY [facility] Stop: 02/05/18 08:59 Last Admin: 12/11/17 09:36 Dose: 20 gm Lamotrigine (Lamictal) 200 mg PO BID [facility]; Protocol Stop: 02/05/18 16:59 Last Admin: 12/11/17 09:37 Dose: 200 mg Levothyroxine Sodium (Synthroid) 0.05 mg PO QDAC JACQUELINE Stop: 02/05/18 07:29 Last Admin: 12/11/17 06:31 Dose: 0.05 mg Lorazepam (Ativan) 0.5 mg PO Q6HR PRN; Protocol PRN Reason: Anxiety Stop: 02/05/18 13:06 Last Admin: 12/11/17 14:24 Dose: 0.5 mg Magnesium Hydroxide (Milk Of Magnesia) 30 ml PO HS PRN PRN Reason: Constipation Multivitamins/Vitamin C (Theragran) 1 tab PO DAILY [facility] Stop: 02/05/18 08:59 Last Admin: 12/11/17 09:38 Dose: 1 tab Nifedipine (Procardia Xl) 30 mg PO DAILY [facility] Stop: 02/05/18 08:59 Last Admin: 12/11/17 09:37 Dose: 30 mg Nystatin (Nystop) 100 units TP BID JACQUELINE Stop: 02/05/18 16:59 Last Admin: 12/11/17 09:36 Dose: 100 units Prednisone (Deltasone) 10 mg PO DAILY [facility] Stop: 02/08/18 08:59 Last Admin: 12/11/17 09:38 Dose: 10 mg Quetiapine Fumarate (Seroquel) 200 mg PO HS JACQUELINE; Protocol Stop: 02/05/18 20:59 Last Admin: 12/10/17 21:30 Dose: 200 mg Quetiapine Fumarate (Seroquel) 200 mg PO DAILY [facility]; Protocol Stop: 02/07/18 08:59 Last Admin: 12/11/17 09:40 Dose: 200 mg Simvastatin (Zocor) 20 mg PO HS JACQUELINE; Protocol Stop: 02/05/18 20:59 Last Admin: 12/10/17 21:29 Dose: 20 mg Trazodone HCl (Desyrel) 50 mg PO HS PRN; Protocol PRN Reason: Insomnia Stop: 02/05/18 20:59 Last Admin: 12/10/17 23:04 Dose: 50 mg Zolpidem Tartrate (Ambien) 5 mg PO HS PRN PRN Reason: Insomnia Stop: 02/05/18 13:06 Last Admin: 12/09/17 20:54 Dose: 5 mg General: demented HEENT: NC/AT, PERRLA, poor dentition Neck: Supple, No JVD, No LAD Lungs: CTAB Cardiovascular: RRR, Normal S1, Normal S2 Abdomen: soft, non-tender, globular, positive bowel sound Extremities: excoriation Neurological: no change, disorganized Internal Medicine Assmt/Plan - Assessment Assessment: ASSESSMENT AND PLAN: 1. Chronic obstructive pulmonary disease. 2. History of stroke. 3. Hypertension. 4. Hypothyroidism. 5. Obesity. 6. Diabetes. 7. Right upper extremity abrasion and skin tear. - Plan Plan: wound care fall precautions continue current plan of care Nutritional Asmnt/Malnutr-PDOC - Dietary Evaluation Malnutrition Findings (Please click <Entered> for more info): Nutritional Asmnt/Malnutrition Start: 12/10/17 13: 46 Text: Status: Complete Freq: Protocol: Document 12/10/17 13:46 [email or web address] (Rec: 12/10/17 13:57 [email or web address]) Nutritional Asmnt/Malnutrition Patient General Information Nutritional Screening Moderate Risk Diagnosis psychosis Pertinent Medical Hx/Surgical Hx COPD, HTN, hypothyroidism, DM, bipolar Subjective Information Pt seen having lunch in dining room, requesting chicken salad instead of the lunch she got. Pt always complained about food per [employer]. Per EMR, PO intake 100%. Current Diet Order/ Nutrition Support cardiac Pertinent Medications synthorid, theragran, seroquel Pertinent Labs 12/06 POC 130 Nutritional Hx/Data Height 5 ft 2 in Height (Calculated Centimeters) 157.5 Current Weight (lbs) 155 lb Weight (Calculated Kilograms) 70.3 Weight (Calculated Grams) 03233.8 [place] Body Weight 110 Body Mass Index (BMI) 28.3 Weight Status Overweight GI Symptoms GI Symptoms None Last BM 12/08 Difficult in: None Skin Integrity/Comment: discoloration to arms and legs . skin intact Current %PO Good (75-100%) Estimated Nutritional Goals BEE in Kcals: Using Current wt Calories/Kcals/Kg 23-27 Kcals Calculated 7157-3981 Protein: Using Current wt Protein g/k.8-1 Protein Calculated 56-70 Fluid: ml 1610-1890ml (1ml/kcal) Nutritional Problem No current Nutrition Prob Problem N/A Malnutrition Alert Is there a minimum of two criteria No selected? Query Text:Check all the applicable criteria. A minimum of two criteria are recommended for diagnosis of either severe or non-severe malnutrition. Malnutrition Related to Morbid Obesity Malnutrition related to morbid obesity No Intervention/Recommendation Comments 1. Continue with current diet as ordered. 2. Monitor PO intake, wt, labs and skin integrity 3. F/U as low risk in 7 days, 12/17 Expected Outcomes/Goals Expected Outcomes/Goals 1. PO intake to meet at least 75% of nutritional needs. 2. Wt stability, skin to remain intact, labs to approach WNL.
--- NOTE | 2017-12-11 15:46 | Progress Notes ---
DATE: 12/11/2017 SUBJECTIVE: Staff was spoken to. The patient is interviewed. Mood is noted to be irritable. Affect is constricted. The patient has been getting easily frustrated. Insight and judgment at this time are noted to be still impaired. Impulse control is noted to be limited. The patient has paranoid delusions. The patient when she does not get her way, tends to scream and yell. ASSESSMENT: The patient is still impulsive. PLAN: To continue the patient with the supportive therapy and followup. JOB# [id number]
[2017-12-12] MEDS: Hydrocodone/APAP 10 mg/325 mg Tab PO PRN (06:18)
[2017-12-12] MEDS: Levothyroxine 0.05 Mg Tab PO SCH (06:36)
[2017-12-12] MEDS: NIFEdipine 30 mg ER Tab PO SCH (10:00)
[2017-12-12] MEDS: Lactulose 10 Gm/15 mL 30mL UDC PO SCH (10:00)
[2017-12-12] MEDS: Multivitamin Tab PO SCH (10:00)
[2017-12-12] MEDS: NYSTATIN 100000 UNITS/GM POWD TP SCH ×2 (10:00→17:34)
--- NOTE | 2017-12-12 14:04 | Internal Medicine Prog Note ---
Internal Medicine Subjective - Subjective Service Date: 12/12/17 Patient is:: asleep, verbal, interactive, agitated, confused Per staff patient has:: no adverse event, poor appetite, noncompliant, tolerating meds Internal Medicine Objective - Results Recent Labs: Laboratory Last Values POC Glucose 130 MG/DL (70 - 105) H 12/06/17 23:03 - Physical Exam Vitals and I&O: Vital Signs Temp 100.1 F 12/12/17 06:21 Pulse 88 12/12/17 10:00 Resp 18 12/12/17 06:21 BP 110/70 12/12/17 10:00 Pulse Ox 96 12/12/17 06:21 Intake & Output 12/11/17 12/12/17 12/12/17 18:59 06:59 18:59 Intake Total 120 Balance 120 Intake: Oral 120 Other: # Voids 4 # Bowel Movements 0 Active Medications: Current Medications Acetaminophen (Tylenol) 650 mg PO Q4HR PRN PRN Reason: Mild Pain / Temp above 100 Stop: 02/05/18 13:06 Acetaminophen/Hydrocodone Bitart ([place] 10 Mg/325 Mg) 1 tab PO Q6H PRN PRN Reason: MOD-SEV pain (level 4-10) Stop: 02/05/18 00:33 Last Admin: 12/12/17 06:18 Dose: 1 tab Al Hydrox/Mg Hydrox/Simethicone (Maalox) 30 ml PO Q4HR PRN PRN Reason: GI DISTRESS Stop: 02/05/18 00:04 Albuterol/Ipratropium (Duoneb Neb) 3 ml HHN Q4HRT PRN PRN Reason: Wheezing Stop: 02/05/18 13:06 Aspirin (Ecotrin) 81 mg PO DAILY [facility] Stop: 02/05/18 08:59 Last Admin: 12/12/17 10:00 Dose: 81 mg Duloxetine HCl (Cymbalta) 60 mg PO DAILY [facility]; Protocol Stop: 02/06/18 08:59 Last Admin: 12/12/17 10:00 Dose: 60 mg Famotidine (Pepcid) 20 mg PO BID [facility] Stop: 02/05/18 16:59 Last Admin: 12/12/17 10:00 Dose: 20 mg Gabapentin (Neurontin) 600 mg PO Q8H [facility] Stop: 02/05/18 20:59 Last Admin: 12/12/17 12:10 Dose: 600 mg Haloperidol Lactate (Haldol) 5 mg IM NOW PRN PRN Reason: Agitation Stop: 02/06/18 07:55 Last Admin: 12/08/17 08:16 Dose: 5 mg Hydrocortisone (Hydrocortisone 1%) 1 appl TP BID JACQUELINE Stop: 02/05/18 16:59 Last Admin: 12/12/17 10:00 Dose: Not Given Lactulose (Cephulac) 20 gm PO DAILY [facility] Stop: 02/05/18 08:59 Last Admin: 12/12/17 10:00 Dose: 20 gm Lamotrigine (Lamictal) 200 mg PO BID [facility]; Protocol Stop: 02/05/18 16:59 Last Admin: 12/12/17 10:00 Dose: 200 mg Levothyroxine Sodium (Synthroid) 0.05 mg PO QDAC [facility]ACQUELINE Stop: 02/05/18 07:29 Last Admin: 12/12/17 06:36 Dose: 0.05 mg Lorazepam (Ativan) 0.5 mg PO Q6HR PRN; Protocol PRN Reason: Anxiety Stop: 02/05/18 13:06 Last Admin: 12/12/17 12:25 Dose: 0.5 mg Magnesium Hydroxide (Milk Of Magnesia) 30 ml PO HS PRN PRN Reason: Constipation Multivitamins/Vitamin C (Theragran) 1 tab PO DAILY [facility] Stop: 02/05/18 08:59 Last Admin: 12/12/17 10:00 Dose: 1 tab Nifedipine (Procardia Xl) 30 mg PO DAILY [facility] Stop: 02/05/18 08:59 Last Admin: 12/12/17 10:00 Dose: Not Given Nystatin (Nystop) 100 units TP BID [facility]INE Stop: 02/05/18 16:59 Last Admin: 12/12/17 10:00 Dose: 100 units Prednisone (Deltasone) 10 mg PO DAILY [facility] Stop: 02/08/18 08:59 Last Admin: 12/12/17 10:00 Dose: 10 mg Quetiapine Fumarate (Seroquel) 200 mg PO HS [facility]ELINE; Protocol Stop: 02/05/18 20:59 Last Admin: 12/11/17 22:00 Dose: 200 mg Quetiapine Fumarate (Seroquel) 200 mg PO DAILY [facility]; Protocol Stop: 02/07/18 08:59 Last Admin: 12/12/17 10:00 Dose: 200 mg Simvastatin (Zocor) 20 mg PO HS JACQUELINE; Protocol Stop: 02/05/18 20:59 Last Admin: 12/11/17 22:00 Dose: 20 mg Trazodone HCl (Desyrel) 50 mg PO HS PRN; Protocol PRN Reason: Insomnia Stop: 02/05/18 20:59 Last Admin: 12/10/17 23:04 Dose: 50 mg Zolpidem Tartrate (Ambien) 5 mg PO HS PRN PRN Reason: Insomnia Stop: 02/05/18 13:06 Last Admin: 12/11/17 22:16 Dose: 5 mg General: demented HEENT: NC/AT, PERRLA, poor dentition Neck: Supple, No JVD, No LAD Lungs: CTAB Cardiovascular: RRR, Normal S1, Normal S2 Abdomen: soft, non-tender, globular, positive bowel sound Extremities: excoriation Neurological: no change, disorganized Internal Medicine Assmt/Plan - Assessment Assessment: ASSESSMENT AND PLAN: 1. Chronic obstructive pulmonary disease. 2. History of stroke. 3. Hypertension. 4. Hypothyroidism. 5. Obesity. 6. Diabetes. 7. Right upper extremity abrasion and skin tear. - Plan Plan: wound care fall precautions continue current plan of care Nutritional Asmnt/Malnutr-PDOC - Dietary Evaluation Malnutrition Findings (Please click <Entered> for more info): Nutritional Asmnt/Malnutrition Start: 12/10/17 13: 46 Text: Status: Complete Freq: Protocol: Document 12/10/17 13:46 LCHENG (Rec: 12/10/17 13:57 [email or web address]) Nutritional Asmnt/Malnutrition Patient General Information Nutritional Screening Moderate Risk Diagnosis psychosis Pertinent Medical Hx/Surgical Hx COPD, HTN, hypothyroidism, DM, bipolar Subjective Information Pt seen having lunch in dining room, requesting chicken salad instead of the lunch she got. Pt always complained about food per [employer]. Per EMR, PO intake 100%. Current Diet Order/ Nutrition Support cardiac Pertinent Medications synthorid, theragran, seroquel Pertinent Labs 12/06 POC 130 Nutritional Hx/Data Height 5 ft 2 in Height (Calculated Centimeters) 157.5 Current Weight (lbs) 155 lb Weight (Calculated Kilograms) 70.3 Weight (Calculated Grams) 72766.8 [place] Body Weight 110 Body Mass Index (BMI) 28.3 Weight Status Overweight GI Symptoms GI Symptoms None Last BM 12/08 Difficult in: None Skin Integrity/Comment: discoloration to arms and legs . skin intact Current %PO Good (75-100%) Estimated Nutritional Goals BEE in Kcals: Using Current wt Calories/Kcals/Kg 23-27 Kcals Calculated 6754-5294 Protein: Using Current wt Protein g/k.8-1 Protein Calculated 56-70 Fluid: ml 1610-1890ml (1ml/kcal) Nutritional Problem No current Nutrition Prob Problem N/A Malnutrition Alert Is there a minimum of two criteria No selected? Query Text:Check all the applicable criteria. A minimum of two criteria are recommended for diagnosis of either severe or non-severe malnutrition. Malnutrition Related to Morbid Obesity Malnutrition related to morbid obesity No Intervention/Recommendation Comments 1. Continue with current diet as ordered. 2. Monitor PO intake, wt, labs and skin integrity 3. F/U as low risk in 7 days, 12/17 Expected Outcomes/Goals Expected Outcomes/Goals 1. PO intake to meet at least 75% of nutritional needs. 2. Wt stability, skin to remain intact, labs to approach WNL.
[2017-12-12] MEDS: Haloperidol Lactate 5 mg/mL 1mL Vial IM PRN (15:12)
--- NOTE | 2017-12-13 02:19 | Progress Notes ---
DATE: 12/12/2017 PSYCHIATRIC PROGRESS NOTE PROGRESS ON THE UNIT: Staff was spoken to. The patient is interviewed. Mood is noted to be dysphoric. Coping skills are noted to be extremely poor. The patient is screaming and yelling. The patient has to be given an emergency dose of Haldol and Benadryl to calm her down. The patient has been noted to be very impulsive today. ASSESSMENT: The patient is still out of control. PLAN: To continue the patient with her current medications. I encouraged the patient to verbalize the concerns rather than to act out. JOB# [id number]
[2017-12-13] MEDS: Hydrocodone/APAP 10 mg/325 mg Tab PO PRN ×3 (06:41→21:52)
[2017-12-13] MEDS: Levothyroxine 0.05 Mg Tab PO SCH (06:41)
[2017-12-13] MEDS: NIFEdipine 30 mg ER Tab PO SCH (08:43)
[2017-12-13] MEDS: Multivitamin Tab PO SCH (08:44)
[2017-12-13] MEDS: Lactulose 10 Gm/15 mL 30mL UDC PO SCH (08:45)
--- NOTE | 2017-12-13 12:27 | Internal Medicine Prog Note ---
Internal Medicine Subjective - Subjective Service Date: 12/13/17 Patient is:: asleep, verbal, interactive, agitated, confused Per staff patient has:: no adverse event, poor appetite, noncompliant, tolerating meds Internal Medicine Objective - Results Recent Labs: Laboratory Last Values POC Glucose 130 MG/DL (70 - 105) H 12/06/17 23:03 - Physical Exam Vitals and I&O: Vital Signs Temp 98.2 F 12/13/17 06:44 Pulse 78 12/13/17 08:43 Resp 18 12/13/17 06:44 BP 140/75 12/13/17 08:43 Pulse Ox 95 12/13/17 06:44 Intake & Output 12/12/17 12/13/17 12/13/17 18:59 06:59 18:59 Intake Total 120 Balance 120 Intake: Oral 120 Other: # Voids 3 Active Medications: Current Medications Acetaminophen (Tylenol) 650 mg PO Q4HR PRN PRN Reason: Mild Pain / Temp above 100 Stop: 02/05/18 13:06 Acetaminophen/Hydrocodone Bitart ([place] 10 Mg/325 Mg) 1 tab PO Q6H PRN PRN Reason: MOD-SEV pain (level 4-10) Stop: 02/05/18 00:33 Last Admin: 12/13/17 06:41 Dose: 1 tab Al Hydrox/Mg Hydrox/Simethicone (Maalox) 30 ml PO Q4HR PRN PRN Reason: GI DISTRESS Stop: 02/05/18 00:04 Albuterol/Ipratropium (Duoneb Neb) 3 ml HHN Q4HRT PRN PRN Reason: Wheezing Stop: 02/05/18 13:06 Aspirin (Ecotrin) 81 mg PO DAILY [facility] Stop: 02/05/18 08:59 Last Admin: 12/13/17 08:43 Dose: 81 mg Duloxetine HCl (Cymbalta) 60 mg PO DAILY [facility]; Protocol Stop: 02/06/18 08:59 Last Admin: 12/13/17 08:44 Dose: 60 mg Famotidine (Pepcid) 20 mg PO BID [facility] Stop: 02/05/18 16:59 Last Admin: 12/13/17 08:44 Dose: 20 mg Gabapentin (Neurontin) 600 mg PO Q8H [facility] Stop: 02/05/18 20:59 Last Admin: 12/13/17 05:58 Dose: 600 mg Haloperidol Lactate (Haldol) 5 mg IM NOW PRN PRN Reason: Agitation Stop: 02/06/18 07:55 Last Admin: 12/12/17 15:12 Dose: 5 mg Hydrocortisone (Hydrocortisone 1%) 1 appl TP BID JACQUELINE Stop: 02/05/18 16:59 Last Admin: 12/12/17 17:33 Dose: Not Given Lactulose (Cephulac) 20 gm PO DAILY [facility] Stop: 02/05/18 08:59 Last Admin: 12/13/17 08:45 Dose: 20 gm Lamotrigine (Lamictal) 200 mg PO BID JACUQELINE; Protocol Stop: 02/05/18 16:59 Last Admin: 12/13/17 08:44 Dose: 200 mg Levothyroxine Sodium (Synthroid) 0.05 mg PO QDAC [facility]ACQUELINE Stop: 02/05/18 07:29 Last Admin: 12/13/17 06:41 Dose: 0.05 mg Lorazepam (Ativan) 0.5 mg PO Q6HR PRN; Protocol PRN Reason: Anxiety Stop: 02/05/18 13:06 Last Admin: 12/13/17 08:44 Dose: 0.5 mg Magnesium Hydroxide (Milk Of Magnesia) 30 ml PO HS PRN PRN Reason: Constipation Multivitamins/Vitamin C (Theragran) 1 tab PO DAILY [facility] Stop: 02/05/18 08:59 Last Admin: 12/13/17 08:44 Dose: 1 tab Nifedipine (Procardia Xl) 30 mg PO DAILY [facility] Stop: 02/05/18 08:59 Last Admin: 12/13/17 08:43 Dose: 30 mg Nystatin (Nystop) 100 units TP BID [facility]INE Stop: 02/05/18 16:59 Last Admin: 12/12/17 17:34 Dose: Not Given Prednisone (Deltasone) 10 mg PO DAILY [facility] Stop: 02/08/18 08:59 Last Admin: 12/13/17 08:44 Dose: 10 mg Quetiapine Fumarate (Seroquel) 200 mg PO HS [facility]ACQU[facility]INE; Protocol Stop: 02/05/18 20:59 Last Admin: 12/12/17 21:07 Dose: 200 mg Quetiapine Fumarate (Seroquel) 200 mg PO DAILY [facility]; Protocol Stop: 02/07/18 08:59 Last Admin: 12/13/17 08:43 Dose: 200 mg Simvastatin (Zocor) 20 mg PO HS JACQUELINE; Protocol Stop: 02/05/18 20:59 Last Admin: 12/12/17 21:06 Dose: 20 mg Trazodone HCl (Desyrel) 50 mg PO HS PRN; Protocol PRN Reason: Insomnia Stop: 02/05/18 20:59 Last Admin: 12/10/17 23:04 Dose: 50 mg Zolpidem Tartrate (Ambien) 5 mg PO HS PRN PRN Reason: Insomnia Stop: 02/05/18 13:06 Last Admin: 12/11/17 22:16 Dose: 5 mg General: demented HEENT: NC/AT, PERRLA, poor dentition Neck: Supple, No JVD, No LAD Lungs: CTAB Cardiovascular: RRR, Normal S1, Normal S2 Abdomen: soft, non-tender, globular, positive bowel sound Extremities: excoriation Neurological: no change, disorganized Internal Medicine Assmt/Plan - Assessment Assessment: ASSESSMENT AND PLAN: 1. Chronic obstructive pulmonary disease. 2. History of stroke. 3. Hypertension. 4. Hypothyroidism. 5. Obesity. 6. Diabetes. 7. Right upper extremity abrasion and skin tear. - Plan Plan: wound care fall precautions continue current plan of care Nutritional Asmnt/Malnutr-PDOC - Dietary Evaluation Malnutrition Findings (Please click <Entered> for more info): Nutritional Asmnt/Malnutrition Start: 12/10/17 13: 46 Text: Status: Complete Freq: Protocol: Document 12/10/17 13:46 LCHENG (Rec: 12/10/17 13:57 [email or web address]) Nutritional Asmnt/Malnutrition Patient General Information Nutritional Screening Moderate Risk Diagnosis psychosis Pertinent Medical Hx/Surgical Hx COPD, HTN, hypothyroidism, DM, bipolar Subjective Information Pt seen having lunch in dining room, requesting chicken salad instead of the lunch she got. Pt always complained about food per CLINICAL OB. Per EMR, PO intake 100%. Current Diet Order/ Nutrition Support cardiac Pertinent Medications synthorid, theragran, seroquel Pertinent Labs 12/06 POC 130 Nutritional Hx/Data Height 5 ft 2 in Height (Calculated Centimeters) 157.5 Current Weight (lbs) 155 lb Weight (Calculated Kilograms) 70.3 Weight (Calculated Grams) 40515.8 [place] Body Weight 110 Body Mass Index (BMI) 28.3 Weight Status Overweight GI Symptoms GI Symptoms None Last BM 12/08 Difficult in: None Skin Integrity/Comment: discoloration to arms and legs . skin intact Current %PO Good (75-100%) Estimated Nutritional Goals BEE in Kcals: Using Current wt Calories/Kcals/Kg 23-27 Kcals Calculated 8223-8081 Protein: Using Current wt Protein g/k.8-1 Protein Calculated 56-70 Fluid: ml 1610-1890ml (1ml/kcal) Nutritional Problem No current Nutrition Prob Problem N/A Malnutrition Alert Is there a minimum of two criteria No selected? Query Text:Check all the applicable criteria. A minimum of two criteria are recommended for diagnosis of either severe or non-severe malnutrition. Malnutrition Related to Morbid Obesity Malnutrition related to morbid obesity No Intervention/Recommendation Comments 1. Continue with current diet as ordered. 2. Monitor PO intake, wt, labs and skin integrity 3. F/U as low risk in 7 days, 12/17 Expected Outcomes/Goals Expected Outcomes/Goals 1. PO intake to meet at least 75% of nutritional needs. 2. Wt stability, skin to remain intact, labs to approach WNL.
[2017-12-13] MEDS: NYSTATIN 100000 UNITS/GM POWD TP SCH ×2 (14:00→17:14)
--- NOTE | 2017-12-13 22:11 | Progress Notes ---
DATE: 12/13/2017 SUBJECTIVE: Staff was spoken to. The patient is interviewed. Mood is noted to be irritable. Affect is constricted. Coping skills are noted to be still poor. The patient is screaming and yelling and stating that she does not want to go back to the previous facility where she was at. The patient has been having difficult time to cope with the stress. No side effects to the medications are noted at this time. ASSESSMENT: The patient is still impulsive. PLAN: To continue the patient with the supportive therapy and followup. JOB# [id number]
[2017-12-14] MEDS: Levothyroxine 0.05 Mg Tab PO SCH (06:50)
[2017-12-14] MEDS: Hydrocodone/APAP 10 mg/325 mg Tab PO PRN ×3 (06:55→21:07)
[2017-12-14] MEDS: Multivitamin Tab PO SCH (09:05)
[2017-12-14] MEDS: Lactulose 10 Gm/15 mL 30mL UDC PO SCH (09:05)
[2017-12-14] MEDS: NIFEdipine 30 mg ER Tab PO SCH (09:07)
[2017-12-14] MEDS: NYSTATIN 100000 UNITS/GM POWD TP SCH ×2 (09:08→16:34)
--- NOTE | 2017-12-14 13:09 | Internal Medicine Prog Note ---
Internal Medicine Subjective - Subjective Service Date: 12/14/17 Patient is:: asleep, verbal, interactive, agitated, confused Per staff patient has:: no adverse event, poor appetite, noncompliant, tolerating meds Internal Medicine Objective - Results Recent Labs: Laboratory Last Values POC Glucose 130 MG/DL (70 - 105) H 12/06/17 23:03 - Physical Exam Vitals and I&O: Vital Signs Temp 99.6 F 12/13/17 14:00 Pulse 93 12/14/17 09:07 Resp 18 12/13/17 18:59 BP 142/76 12/14/17 09:07 Pulse Ox 94 12/13/17 18:59 Intake & Output 12/13/17 12/14/17 12/14/17 18:59 06:59 18:59 Intake Total 1600 Balance 1600 Intake: Oral 1600 Other: # Voids 4 # Bowel Movements 0 Active Medications: Current Medications Acetaminophen (Tylenol) 650 mg PO Q4HR PRN PRN Reason: Mild Pain / Temp above 100 Stop: 02/05/18 13:06 Acetaminophen/Hydrocodone Bitart ([place] 10 Mg/325 Mg) 1 tab PO Q6H PRN PRN Reason: MOD-SEV pain (level 4-10) Stop: 02/05/18 00:33 Last Admin: 12/14/17 06:55 Dose: 1 tab Al Hydrox/Mg Hydrox/Simethicone (Maalox) 30 ml PO Q4HR PRN PRN Reason: GI DISTRESS Stop: 02/05/18 00:04 Albuterol/Ipratropium (Duoneb Neb) 3 ml HHN Q4HRT PRN PRN Reason: Wheezing Stop: 02/05/18 13:06 Aspirin (Ecotrin) 81 mg PO DAILY REPLACED BY [facility] Stop: 02/05/18 08:59 Last Admin: 12/14/17 09:08 Dose: 81 mg Duloxetine HCl (Cymbalta) 60 mg PO DAILY REPLACED BY [facility]; Protocol Stop: 02/06/18 08:59 Last Admin: 12/14/17 09:06 Dose: 60 mg Famotidine (Pepcid) 20 mg PO BID REPLACED BY [facility] Stop: 02/05/18 16:59 Last Admin: 12/14/17 09:07 Dose: 20 mg Gabapentin (Neurontin) 600 mg PO Q8H [facility] Stop: 02/05/18 20:59 Last Admin: 12/14/17 12:12 Dose: 600 mg Haloperidol Lactate (Haldol) 5 mg IM NOW PRN PRN Reason: Agitation Stop: 02/06/18 07:55 Last Admin: 12/12/17 15:12 Dose: 5 mg Hydrocortisone (Hydrocortisone 1%) 1 appl TP BID [facility] Stop: 02/05/18 16:59 Last Admin: 12/14/17 09:08 Dose: 1 appl Lactulose (Cephulac) 20 gm PO DAILY [facility] Stop: 02/05/18 08:59 Last Admin: 12/14/17 09:05 Dose: 20 gm Lamotrigine (Lamictal) 200 mg PO BID [facility]; Protocol Stop: 02/05/18 16:59 Last Admin: 12/14/17 09:07 Dose: 200 mg Levothyroxine Sodium (Synthroid) 0.05 mg PO QDAC [facility] Stop: 02/05/18 07:29 Last Admin: 12/14/17 06:50 Dose: 0.05 mg Lorazepam (Ativan) 0.5 mg PO Q6HR PRN; Protocol PRN Reason: Anxiety Stop: 02/05/18 13:06 Last Admin: 12/14/17 06:55 Dose: 0.5 mg Magnesium Hydroxide (Milk Of Magnesia) 30 ml PO HS PRN PRN Reason: Constipation Multivitamins/Vitamin C (Theragran) 1 tab PO DAILY [facility] Stop: 02/05/18 08:59 Last Admin: 12/14/17 09:05 Dose: 1 tab Nifedipine (Procardia Xl) 30 mg PO DAILY [facility] Stop: 02/05/18 08:59 Last Admin: 12/14/17 09:07 Dose: 30 mg Nystatin (Nystop) 100 units TP BID [facility] Stop: 02/05/18 16:59 Last Admin: 12/14/17 09:08 Dose: 100 units Prednisone (Deltasone) 10 mg PO DAILY [facility] Stop: 02/08/18 08:59 Last Admin: 12/14/17 09:07 Dose: 10 mg Quetiapine Fumarate (Seroquel) 200 mg PO HS [facility]; Protocol Stop: 02/05/18 20:59 Last Admin: 12/13/17 22:49 Dose: Not Given Quetiapine Fumarate (Seroquel) 200 mg PO DAILY [facility]; Protocol Stop: 02/07/18 08:59 Last Admin: 12/14/17 09:06 Dose: 200 mg Simvastatin (Zocor) 20 mg PO HS JCAQUELINE; Protocol Stop: 02/05/18 20:59 Last Admin: 12/13/17 21:53 Dose: 20 mg Trazodone HCl (Desyrel) 50 mg PO HS PRN; Protocol PRN Reason: Insomnia Stop: 02/05/18 20:59 Last Admin: 12/10/17 23:04 Dose: 50 mg Zolpidem Tartrate (Ambien) 5 mg PO HS PRN PRN Reason: Insomnia Stop: 02/05/18 13:06 Last Admin: 12/13/17 22:52 Dose: 5 mg General: demented HEENT: NC/AT, PERRLA, poor dentition Neck: Supple, No JVD, No LAD Lungs: CTAB Cardiovascular: RRR, Normal S1, Normal S2 Abdomen: soft, non-tender, globular, positive bowel sound Extremities: excoriation Neurological: no change, disorganized Internal Medicine Assmt/Plan - Assessment Assessment: ASSESSMENT AND PLAN: 1. Chronic obstructive pulmonary disease. 2. History of stroke. 3. Hypertension. 4. Hypothyroidism. 5. Obesity. 6. Diabetes. 7. Right upper extremity abrasion and skin tear. - Plan Plan: wound care fall precautions continue current plan of care Nutritional Asmnt/Malnutr-PDOC - Dietary Evaluation Malnutrition Findings (Please click <Entered> for more info): Nutritional Asmnt/Malnutrition Start: 12/10/17 13: 46 Text: Status: Complete Freq: Protocol: Document 12/10/17 13:46 LCHENG (Rec: 12/10/17 13:57 LCHENG [email or web address]) Nutritional Asmnt/Malnutrition Patient General Information Nutritional Screening Moderate Risk Diagnosis psychosis Pertinent Medical Hx/Surgical Hx COPD, HTN, hypothyroidism, DM, bipolar Subjective Information Pt seen having lunch in dining room, requesting chicken salad instead of the lunch she got. Pt always complained about food per COMPUTER NETWORK SPECIALIST. Per EMR, PO intake 100%. Current Diet Order/ Nutrition Support cardiac Pertinent Medications synthorid, theragran, seroquel Pertinent Labs 12/06 POC 130 Nutritional Hx/Data Height 5 ft 2 in Height (Calculated Centimeters) 157.5 Current Weight (lbs) 155 lb Weight (Calculated Kilograms) 70.3 Weight (Calculated Grams) 30509.8 [place] Body Weight 110 Body Mass Index (BMI) 28.3 Weight Status Overweight GI Symptoms GI Symptoms None Last BM 12/08 Difficult in: None Skin Integrity/Comment: discoloration to arms and legs . skin intact Current %PO Good (75-100%) Estimated Nutritional Goals BEE in Kcals: Using Current wt Calories/Kcals/Kg 23-27 Kcals Calculated 2581-5964 Protein: Using Current wt Protein g/k.8-1 Protein Calculated 56-70 Fluid: ml 1610-1890ml (1ml/kcal) Nutritional Problem No current Nutrition Prob Problem N/A Malnutrition Alert Is there a minimum of two criteria No selected? Query Text:Check all the applicable criteria. A minimum of two criteria are recommended for diagnosis of either severe or non-severe malnutrition. Malnutrition Related to Morbid Obesity Malnutrition related to morbid obesity No Intervention/Recommendation Comments 1. Continue with current diet as ordered. 2. Monitor PO intake, wt, labs and skin integrity 3. F/U as low risk in 7 days, 12/17 Expected Outcomes/Goals Expected Outcomes/Goals 1. PO intake to meet at least 75% of nutritional needs. 2. Wt stability, skin to remain intact, labs to approach WNL.
--- NOTE | 2017-12-15 04:11 | Progress Notes ---
DATE: 12/14/2017 SUBJECTIVE: Staff was spoken to. The patient is interviewed. Mood is noted to be irritable. Affect is constricted. Insight and judgment at this time are noted to be still impaired. Impulse control seems to be limited. Coping skills are noted to be limited. The patient has been having difficult time to cope with the stress. The patient is stating that the people are abusing her and the patient has been very paranoid. The patient has also been getting easily confused. ASSESSMENT: The patient is still impulsive and psychotic. PLAN: To continue the patient with the supportive therapy and followup. JOB# [id number]
[2017-12-15] MEDS: Hydrocodone/APAP 10 mg/325 mg Tab PO PRN ×2 (06:38→20:18)
[2017-12-15] MEDS: Levothyroxine 0.05 Mg Tab PO SCH (06:38)
[2017-12-15] MEDS: NIFEdipine 30 mg ER Tab PO SCH (09:23)
[2017-12-15] MEDS: Multivitamin Tab PO SCH (09:23)
[2017-12-15] MEDS: NYSTATIN 100000 UNITS/GM POWD TP SCH ×2 (09:23→16:51)
[2017-12-15] MEDS: Lactulose 10 Gm/15 mL 30mL UDC PO SCH (09:23)
--- NOTE | 2017-12-15 10:26 | Internal Medicine Prog Note ---
Internal Medicine Subjective - Subjective Service Date: 12/15/17 Patient is:: asleep, verbal, interactive, agitated, confused Per staff patient has:: no adverse event, poor appetite, noncompliant, tolerating meds Internal Medicine Objective - Results Recent Labs: Laboratory Last Values POC Glucose 130 MG/DL (70 - 105) H 12/06/17 23:03 - Physical Exam Vitals and I&O: Vital Signs Temp 99.4 F 12/15/17 06:29 Pulse 86 12/15/17 09:23 Resp 18 12/15/17 06:54 BP 141/82 12/15/17 09:23 Pulse Ox 97 12/15/17 06:54 Intake & Output 12/14/17 12/15/17 12/15/17 18:59 06:59 18:59 Intake Total 1200 480 Balance 1200 480 Intake: Oral 1200 480 Other: # Voids 3 # Bowel Movements 1 0 Stool Characteristics Formed Formed Active Medications: Current Medications Acetaminophen (Tylenol) 650 mg PO Q4HR PRN PRN Reason: Mild Pain / Temp above 100 Stop: 02/05/18 13:06 Acetaminophen/Hydrocodone Bitart ([place] 10 Mg/325 Mg) 1 tab PO Q6H PRN PRN Reason: MOD-SEV pain (level 4-10) Stop: 02/05/18 00:33 Last Admin: 12/15/17 06:38 Dose: 1 tab Al Hydrox/Mg Hydrox/Simethicone (Maalox) 30 ml PO Q4HR PRN PRN Reason: GI DISTRESS Stop: 02/05/18 00:04 Albuterol/Ipratropium (Duoneb Neb) 3 ml HHN Q4HRT PRN PRN Reason: Wheezing Stop: 02/05/18 13:06 Aspirin (Ecotrin) 81 mg PO DAILY [facility] Stop: 02/05/18 08:59 Last Admin: 12/15/17 09:22 Dose: 81 mg Duloxetine HCl (Cymbalta) 60 mg PO DAILY [facility]; Protocol Stop: 02/06/18 08:59 Last Admin: 12/15/17 09:22 Dose: 60 mg Famotidine (Pepcid) 20 mg PO BID [facility] Stop: 02/05/18 16:59 Last Admin: 12/15/17 09:22 Dose: 20 mg Gabapentin (Neurontin) 600 mg PO Q8H [facility] Stop: 02/05/18 20:59 Last Admin: 12/15/17 05:18 Dose: 600 mg Haloperidol Lactate (Haldol) 5 mg IM NOW PRN PRN Reason: Agitation Stop: 02/06/18 07:55 Last Admin: 12/12/17 15:12 Dose: 5 mg Hydrocortisone (Hydrocortisone 1%) 1 appl TP BID [facility] Stop: 02/05/18 16:59 Last Admin: 12/15/17 09:23 Dose: 1 appl Lactulose (Cephulac) 20 gm PO DAILY [facility] Stop: 02/05/18 08:59 Last Admin: 12/15/17 09:23 Dose: 20 gm Lamotrigine (Lamictal) 200 mg PO BID [facility]; Protocol Stop: 02/05/18 16:59 Last Admin: 12/15/17 09:23 Dose: 200 mg Levothyroxine Sodium (Synthroid) 0.05 mg PO QDAC [facility] Stop: 02/05/18 07:29 Last Admin: 12/15/17 06:38 Dose: 0.05 mg Lorazepam (Ativan) 0.5 mg PO Q6HR PRN; Protocol PRN Reason: Anxiety Stop: 02/05/18 13:06 Last Admin: 12/15/17 06:38 Dose: 0.5 mg Magnesium Hydroxide (Milk Of Magnesia) 30 ml PO HS PRN PRN Reason: Constipation Multivitamins/Vitamin C (Theragran) 1 tab PO DAILY [facility] Stop: 02/05/18 08:59 Last Admin: 12/15/17 09:23 Dose: 1 tab Nifedipine (Procardia Xl) 30 mg PO DAILY [facility] Stop: 02/05/18 08:59 Last Admin: 12/15/17 09:23 Dose: 30 mg Nystatin (Nystop) 100 units TP BID [facility] Stop: 02/05/18 16:59 Last Admin: 12/15/17 09:23 Dose: 100 units Prednisone (Deltasone) 10 mg PO DAILY [facility] Stop: 02/08/18 08:59 Last Admin: 12/15/17 09:23 Dose: 10 mg Quetiapine Fumarate (Seroquel) 200 mg PO HS [facility]; Protocol Stop: 02/05/18 20:59 Last Admin: 12/14/17 21:04 Dose: 200 mg Quetiapine Fumarate (Seroquel) 200 mg PO DAILY [facility]; Protocol Stop: 02/07/18 08:59 Last Admin: 12/15/17 09:23 Dose: 200 mg Simvastatin (Zocor) 20 mg PO HS [facility]; Protocol Stop: 02/05/18 20:59 Last Admin: 12/14/17 21:05 Dose: 20 mg Trazodone HCl (Desyrel) 50 mg PO HS PRN; Protocol PRN Reason: Insomnia Stop: 02/05/18 20:59 Last Admin: 12/10/17 23:04 Dose: 50 mg Zolpidem Tartrate (Ambien) 5 mg PO HS PRN PRN Reason: Insomnia Stop: 02/05/18 13:06 Last Admin: 12/13/17 22:52 Dose: 5 mg General: demented HEENT: NC/AT, PERRLA, poor dentition Neck: Supple, No JVD, No LAD Lungs: CTAB Cardiovascular: RRR, Normal S1, Normal S2 Abdomen: soft, non-tender, globular, positive bowel sound Extremities: excoriation Neurological: no change, disorganized Internal Medicine Assmt/Plan - Assessment Assessment: ASSESSMENT AND PLAN: 1. Chronic obstructive pulmonary disease. 2. History of stroke. 3. Hypertension. 4. Hypothyroidism. 5. Obesity. 6. Diabetes. 7. Right upper extremity abrasion and skin tear. - Plan Plan: wound care fall precautions continue current plan of care Nutritional Asmnt/Malnutr-PDOC - Dietary Evaluation Malnutrition Findings (Please click <Entered> for more info): Nutritional Asmnt/Malnutrition Start: 12/10/17 13: 46 Text: Status: Complete Freq: Protocol: Document 12/10/17 13:46 [email or web address] (Rec: 12/10/17 13:57 JESSICAG [email or web address]) Nutritional Asmnt/Malnutrition Patient General Information Nutritional Screening Moderate Risk Diagnosis psychosis Pertinent Medical Hx/Surgical Hx COPD, HTN, hypothyroidism, DM, bipolar Subjective Information Pt seen having lunch in dining room, requesting chicken salad instead of the lunch she got. Pt always complained about food per RATINGS ANALYST. Per EMR, PO intake 100%. Current Diet Order/ Nutrition Support cardiac Pertinent Medications synthorid, theragran, seroquel Pertinent Labs 12/06 POC 130 Nutritional Hx/Data Height 5 ft 2 in Height (Calculated Centimeters) 157.5 Current Weight (lbs) 155 lb Weight (Calculated Kilograms) 70.3 Weight (Calculated Grams) 07293.8 [place] Body Weight 110 Body Mass Index (BMI) 28.3 Weight Status Overweight GI Symptoms GI Symptoms None Last BM 12/08 Difficult in: None Skin Integrity/Comment: discoloration to arms and legs . skin intact Current %PO Good (75-100%) Estimated Nutritional Goals BEE in Kcals: Using Current wt Calories/Kcals/Kg 23-27 Kcals Calculated 4483-3740 Protein: Using Current wt Protein g/k.8-1 Protein Calculated 56-70 Fluid: ml 1610-1890ml (1ml/kcal) Nutritional Problem No current Nutrition Prob Problem N/A Malnutrition Alert Is there a minimum of two criteria No selected? Query Text:Check all the applicable criteria. A minimum of two criteria are recommended for diagnosis of either severe or non-severe malnutrition. Malnutrition Related to Morbid Obesity Malnutrition related to morbid obesity No Intervention/Recommendation Comments 1. Continue with current diet as ordered. 2. Monitor PO intake, wt, labs and skin integrity 3. F/U as low risk in 7 days, 12/17 Expected Outcomes/Goals Expected Outcomes/Goals 1. PO intake to meet at least 75% of nutritional needs. 2. Wt stability, skin to remain intact, labs to approach WNL.
--- NOTE | 2017-12-15 23:50 | Progress Notes ---
DATE: 12/15/2017 SUBJECTIVE: Staff was spoken to. The patient is interviewed. Mood is noted to be dysphoric. Coping skills are noted to be extremely poor. Sleep and appetite also noted to be limited. No side effects to the medications are noted. The patient's coping skills at this time are noted to be poor. No side effects to the medications are noted. The patient has been coming up with the one excuse or the other and has been stating that the staff have been abusing. The patient is stating that she is improved all over. ASSESSMENT: The patient is still very paranoid and has been having acute mood swings. PLAN: To continue the patient with the current medications and followup. [facility]# [id number]
[2017-12-16] MEDS: Levothyroxine 0.05 Mg Tab PO SCH (06:51)
[2017-12-16] MEDS: Hydrocodone/APAP 10 mg/325 mg Tab PO PRN ×3 (06:51→23:11)
[2017-12-16] MEDS: Multivitamin Tab PO SCH (08:58)
[2017-12-16] MEDS: NIFEdipine 30 mg ER Tab PO SCH (09:00)
[2017-12-16] MEDS: NYSTATIN 100000 UNITS/GM POWD TP SCH ×2 (09:01→16:23)
[2017-12-16] MEDS: Lactulose 10 Gm/15 mL 30mL UDC PO SCH (09:01)
--- NOTE | 2017-12-16 10:41 | Progress Notes ---
DATE: 12/16/2017 SUBJECTIVE: Staff was spoken to. The patient is interviewed. Mood is noted to be irritable. Affect is constricted. Insight and judgment at this time are noted to be still impaired. Impulse control is noted to be limited. The patient is very intrusive and has been demanding. The patient's coping skills are noted to be very poor. The patient has been very paranoid and has been coming with the constant complaints on the staff members. The patient is stating that people are not treating her right and she needs to talk to the social sciences chair so that she can get out of this place. The patient has no insight into her illness. The patient is currently maintained on 400 mg of the Seroquel per day and has been able to tolerate. No side effects to the medications are noted. ASSESSMENT: The patient is still impulsive. PLAN: To continue the patient with the supportive therapy, encouraged the patient to verbalize the concerns rather than to act out. In view of the patient's unsteadiness, it is decided unsteady gait, it is decided to discontinue the trazodone and continue the Ambien and followup. JOB# [id number]
--- NOTE | 2017-12-16 10:54 | Internal Medicine Prog Note ---
Internal Medicine Subjective - Subjective Service Date: 12/16/17 Patient is:: asleep, verbal, interactive, agitated, confused Per staff patient has:: no adverse event, poor appetite, noncompliant, tolerating meds Internal Medicine Objective - Results Recent Labs: Laboratory Last Values POC Glucose 130 MG/DL (70 - 105) H 12/06/17 23:03 - Physical Exam Vitals and I&O: Vital Signs Temp 99.2 F 12/15/17 20:00 Pulse 84 12/16/17 09:00 Resp 18 12/16/17 07:18 BP 127/84 12/16/17 09:00 Pulse Ox 96 12/15/17 23:39 Intake & Output 12/15/17 12/16/17 12/16/17 18:59 06:59 18:59 Intake Total 900 Balance 900 Intake: Oral 900 Other: # Voids 3 # Bowel Movements 1 Stool Characteristics Formed Active Medications: Current Medications Acetaminophen (Tylenol) 650 mg PO Q4HR PRN PRN Reason: Mild Pain / Temp above 100 Stop: 02/05/18 13:06 Acetaminophen/Hydrocodone Bitart ([place] 10 Mg/325 Mg) 1 tab PO Q6H PRN PRN Reason: MOD-SEV pain (level 4-10) Stop: 02/05/18 00:33 Last Admin: 12/16/17 06:51 Dose: 1 tab Al Hydrox/Mg Hydrox/Simethicone (Maalox) 30 ml PO Q4HR PRN PRN Reason: GI DISTRESS Stop: 02/05/18 00:04 Albuterol/Ipratropium (Duoneb Neb) 3 ml HHN Q4HRT PRN PRN Reason: Wheezing Stop: 02/05/18 13:06 Aspirin (Ecotrin) 81 mg PO DAILY [facility] Stop: 02/05/18 08:59 Last Admin: 12/16/17 08:58 Dose: 81 mg Duloxetine HCl (Cymbalta) 60 mg PO DAILY [facility]; Protocol Stop: 02/06/18 08:59 Last Admin: 12/16/17 09:00 Dose: 60 mg Famotidine (Pepcid) 20 mg PO BID [facility] Stop: 02/05/18 16:59 Last Admin: 12/16/17 08:59 Dose: 20 mg Gabapentin (Neurontin) 600 mg PO Q8H [facility] Stop: 02/05/18 20:59 Last Admin: 12/16/17 06:51 Dose: 600 mg Haloperidol Lactate (Haldol) 5 mg IM NOW PRN PRN Reason: Agitation Stop: 02/06/18 07:55 Last Admin: 12/12/17 15:12 Dose: 5 mg Hydrocortisone (Hydrocortisone 1%) 1 appl TP BID [facility] Stop: 02/05/18 16:59 Last Admin: 12/16/17 09:00 Dose: 1 appl Lactulose (Cephulac) 20 gm PO DAILY [facility] Stop: 02/05/18 08:59 Last Admin: 12/16/17 09:01 Dose: 20 gm Lamotrigine (Lamictal) 200 mg PO BID [facility]; Protocol Stop: 02/05/18 16:59 Last Admin: 12/16/17 08:59 Dose: 200 mg Levothyroxine Sodium (Synthroid) 0.05 mg PO QDAC [facility] Stop: 02/05/18 07:29 Last Admin: 12/16/17 06:51 Dose: 0.05 mg Lorazepam (Ativan) 0.5 mg PO Q6HR PRN; Protocol PRN Reason: Anxiety Stop: 02/05/18 13:06 Last Admin: 12/15/17 20:19 Dose: 0.5 mg Magnesium Hydroxide (Milk Of Magnesia) 30 ml PO HS PRN PRN Reason: Constipation Multivitamins/Vitamin C (Theragran) 1 tab PO DAILY [facility] Stop: 02/05/18 08:59 Last Admin: 12/16/17 08:58 Dose: 1 tab Nifedipine (Procardia Xl) 30 mg PO DAILY [facility] Stop: 02/05/18 08:59 Last Admin: 12/16/17 09:00 Dose: 30 mg Nystatin (Nystop) 100 units TP BID [facility] Stop: 02/05/18 16:59 Last Admin: 12/16/17 09:01 Dose: 100 units Prednisone (Deltasone) 10 mg PO DAILY [facility] Stop: 02/08/18 08:59 Last Admin: 12/16/17 08:59 Dose: 10 mg Quetiapine Fumarate (Seroquel) 200 mg PO HS [facility]; Protocol Stop: 02/05/18 20:59 Last Admin: 12/15/17 22:33 Dose: Not Given Quetiapine Fumarate (Seroquel) 200 mg PO DAILY [facility]; Protocol Stop: 02/07/18 08:59 Last Admin: 12/16/17 09:01 Dose: 200 mg Simvastatin (Zocor) 20 mg PO HS [facility]INE; Protocol Stop: 02/05/18 20:59 Last Admin: 12/15/17 20:19 Dose: 20 mg Zolpidem Tartrate (Ambien) 5 mg PO HS PRN PRN Reason: Insomnia Stop: 02/05/18 13:06 Last Admin: 12/15/17 23:07 Dose: 5 mg General: demented HEENT: NC/AT, PERRLA, poor dentition Neck: Supple, No JVD, No LAD Lungs: CTAB Cardiovascular: RRR, Normal S1, Normal S2 Abdomen: soft, non-tender, globular, positive bowel sound Extremities: excoriation Neurological: no change, disorganized Internal Medicine Assmt/Plan - Assessment Assessment: ASSESSMENT AND PLAN: 1. Chronic obstructive pulmonary disease. 2. History of stroke. 3. Hypertension. 4. Hypothyroidism. 5. Obesity. 6. Diabetes. 7. Right upper extremity abrasion and skin tear. - Plan Plan: wound care fall precautions continue current plan of care Nutritional Asmnt/Malnutr-PDOC - Dietary Evaluation Malnutrition Findings (Please click <Entered> for more info): Nutritional Asmnt/Malnutrition Start: 12/10/17 13: 46 Text: Status: Complete Freq: Protocol: Document 12/10/17 13:46 LCHENG (Rec: 12/10/17 13:57 LCHENG [email or web address]) Nutritional Asmnt/Malnutrition Patient General Information Nutritional Screening Moderate Risk Diagnosis psychosis Pertinent Medical Hx/Surgical Hx COPD, HTN, hypothyroidism, DM, bipolar Subjective Information Pt seen having lunch in dining room, requesting chicken salad instead of the lunch she got. Pt always complained about food per CENTRIFUGE SEPARATOR OPERATOR. Per EMR, PO intake 100%. Current Diet Order/ Nutrition Support cardiac Pertinent Medications synthorid, theragran, seroquel Pertinent Labs 12/06 POC 130 Nutritional Hx/Data Height 5 ft 2 in Height (Calculated Centimeters) 157.5 Current Weight (lbs) 155 lb Weight (Calculated Kilograms) 70.3 Weight (Calculated Grams) 91004.8 [place] Body Weight 110 Body Mass Index (BMI) 28.3 Weight Status Overweight GI Symptoms GI Symptoms None Last BM 12/08 Difficult in: None Skin Integrity/Comment: discoloration to arms and legs . skin intact Current %PO Good (75-100%) Estimated Nutritional Goals BEE in Kcals: Using Current wt Calories/Kcals/Kg 23-27 Kcals Calculated 5491-8491 Protein: Using Current wt Protein g/k.8-1 Protein Calculated 56-70 Fluid: ml 1610-1890ml (1ml/kcal) Nutritional Problem No current Nutrition Prob Problem N/A Malnutrition Alert Is there a minimum of two criteria No selected? Query Text:Check all the applicable criteria. A minimum of two criteria are recommended for diagnosis of either severe or non-severe malnutrition. Malnutrition Related to Morbid Obesity Malnutrition related to morbid obesity No Intervention/Recommendation Comments 1. Continue with current diet as ordered. 2. Monitor PO intake, wt, labs and skin integrity 3. F/U as low risk in 7 days, 12/17 Expected Outcomes/Goals Expected Outcomes/Goals 1. PO intake to meet at least 75% of nutritional needs. 2. Wt stability, skin to remain intact, labs to approach WNL.
[2017-12-17] MEDS: Levothyroxine 0.05 Mg Tab PO SCH (06:36)
[2017-12-17] MEDS: NYSTATIN 100000 UNITS/GM POWD TP SCH ×2 (09:38→16:24)
[2017-12-17] MEDS: Lactulose 10 Gm/15 mL 30mL UDC PO SCH (09:40)
[2017-12-17] MEDS: NIFEdipine 30 mg ER Tab PO SCH (09:41)
[2017-12-17] MEDS: Multivitamin Tab PO SCH (09:41)
[2017-12-17] MEDS ORDERED: Haloperidol Lactate 5 mg/mL 1mL Vial IM STA (10:34)
--- NOTE | 2017-12-17 13:08 | Internal Medicine Prog Note ---
Internal Medicine Subjective - Subjective Service Date: 12/17/17 Patient is:: awake, verbal, interactive, agitated, confused Per staff patient has:: no adverse event, poor appetite, noncompliant, tolerating meds Internal Medicine Objective - Results Recent Labs: Laboratory Last Values POC Glucose 130 MG/DL (70 - 105) H 12/06/17 23:03 - Physical Exam Vitals and I&O: Vital Signs Temp 98.6 F 12/17/17 05:58 Pulse 91 12/17/17 09:41 Resp 12 12/17/17 07:00 BP 143/72 12/17/17 09:41 Pulse Ox 92 12/17/17 07:00 Intake & Output 12/16/17 12/17/17 12/17/17 18:59 06:59 18:59 Intake Total 900 240 Balance 900 240 Intake: Oral 900 240 Other: # Voids 3 1 # Bowel Movements 1 0 Active Medications: Current Medications Acetaminophen (Tylenol) 650 mg PO Q4HR PRN PRN Reason: Mild Pain / Temp above 100 Stop: 02/05/18 13:06 Acetaminophen/Hydrocodone Bitart ([place] 10 Mg/325 Mg) 1 tab PO Q6H PRN PRN Reason: MOD-SEV pain (level 4-10) Stop: 02/05/18 00:33 Last Admin: 12/16/17 23:11 Dose: 1 tab Al Hydrox/Mg Hydrox/Simethicone (Maalox) 30 ml PO Q4HR PRN PRN Reason: GI DISTRESS Stop: 02/05/18 00:04 Albuterol/Ipratropium (Duoneb Neb) 3 ml HHN Q4HRT PRN PRN Reason: Wheezing Stop: 02/05/18 13:06 Aspirin (Ecotrin) 81 mg PO DAILY [facility] Stop: 02/05/18 08:59 Last Admin: 12/17/17 09:39 Dose: 81 mg Duloxetine HCl (Cymbalta) 60 mg PO DAILY [facility]; Protocol Stop: 02/06/18 08:59 Last Admin: 12/17/17 09:39 Dose: 60 mg Famotidine (Pepcid) 20 mg PO BID [facility] Stop: 02/05/18 16:59 Last Admin: 12/17/17 09:40 Dose: 20 mg Gabapentin (Neurontin) 600 mg PO Q8H [facility] Stop: 02/05/18 20:59 Last Admin: 12/17/17 12:00 Dose: 600 mg Haloperidol Lactate (Haldol) 5 mg IM NOW PRN PRN Reason: Agitation Stop: 02/06/18 07:55 Last Admin: 12/12/17 15:12 Dose: 5 mg Hydrocortisone (Hydrocortisone 1%) 1 appl TP BID [facility] Stop: 02/05/18 16:59 Last Admin: 12/17/17 09:37 Dose: Not Given Lactulose (Cephulac) 20 gm PO DAILY [facility] Stop: 02/05/18 08:59 Last Admin: 12/17/17 09:40 Dose: 20 gm Lamotrigine (Lamictal) 200 mg PO BID [facility]; Protocol Stop: 02/05/18 16:59 Last Admin: 12/17/17 09:40 Dose: 200 mg Levothyroxine Sodium (Synthroid) 0.05 mg PO QDAC [facility] Stop: 02/05/18 07:29 Last Admin: 12/17/17 06:36 Dose: 0.05 mg Lorazepam (Ativan) 0.5 mg PO Q6HR PRN; Protocol PRN Reason: Anxiety Stop: 02/05/18 13:06 Last Admin: 12/16/17 13:24 Dose: 0.5 mg Magnesium Hydroxide (Milk Of Magnesia) 30 ml PO HS PRN PRN Reason: Constipation Multivitamins/Vitamin C (Theragran) 1 tab PO DAILY [facility] Stop: 02/05/18 08:59 Last Admin: 12/17/17 09:41 Dose: 1 tab Nifedipine (Procardia Xl) 30 mg PO DAILY [facility] Stop: 02/05/18 08:59 Last Admin: 12/17/17 09:41 Dose: 30 mg Nystatin (Nystop) 100 units TP BID [facility] Stop: 02/05/18 16:59 Last Admin: 12/17/17 09:38 Dose: Not Given Prednisone (Deltasone) 10 mg PO DAILY [facility] Stop: 02/08/18 08:59 Last Admin: 12/17/17 09:41 Dose: 10 mg Quetiapine Fumarate (Seroquel) 200 mg PO HS [facility]; Protocol Stop: 02/05/18 20:59 Last Admin: 12/16/17 21:30 Dose: 200 mg Quetiapine Fumarate (Seroquel) 200 mg PO DAILY [facility]; Protocol Stop: 02/07/18 08:59 Last Admin: 12/17/17 09:41 Dose: 200 mg Simvastatin (Zocor) 20 mg PO HS [facility]; Protocol Stop: 02/05/18 20:59 Last Admin: 12/16/17 21:30 Dose: 20 mg Zolpidem Tartrate (Ambien) 5 mg PO HS PRN PRN Reason: Insomnia Stop: 02/05/18 13:06 Last Admin: 12/15/17 23:07 Dose: 5 mg General: demented HEENT: NC/AT, PERRLA, poor dentition Neck: Supple, No JVD, No LAD Lungs: CTAB Cardiovascular: RRR, Normal S1, Normal S2 Abdomen: soft, non-tender, globular, positive bowel sound Extremities: excoriation Neurological: no change, disorganized Internal Medicine Assmt/Plan - Assessment Assessment: ASSESSMENT AND PLAN: 1. Chronic obstructive pulmonary disease. 2. History of stroke. 3. Hypertension. 4. Hypothyroidism. 5. Obesity. 6. Diabetes. 7. Right upper extremity abrasion and skin tear. - Plan Plan: wound care fall precautions continue current plan of care Nutritional Asmnt/Malnutr-PDOC - Dietary Evaluation Malnutrition Findings (Please click <Entered> for more info): Nutritional Asmnt/Malnutrition Start: 12/10/17 13: 46 Text: Status: Complete Freq: Protocol: Document 12/10/17 13:46 LCHENG (Rec: 12/10/17 13:57 LCHENG [email or web address]) Nutritional Asmnt/Malnutrition Patient General Information Nutritional Screening Moderate Risk Diagnosis psychosis Pertinent Medical Hx/Surgical Hx COPD, HTN, hypothyroidism, DM, bipolar Subjective Information Pt seen having lunch in dining room, requesting chicken salad instead of the lunch she got. Pt always complained about food per CREPE MACHINE OPERATOR. Per EMR, PO intake 100%. Current Diet Order/ Nutrition Support cardiac Pertinent Medications synthorid, theragran, seroquel Pertinent Labs 12/06 POC 130 Nutritional Hx/Data Height 5 ft 2 in Height (Calculated Centimeters) 157.5 Current Weight (lbs) 155 lb Weight (Calculated Kilograms) 70.3 Weight (Calculated Grams) 96049.8 [place] Body Weight 110 Body Mass Index (BMI) 28.3 Weight Status Overweight GI Symptoms GI Symptoms None Last BM 12/08 Difficult in: None Skin Integrity/Comment: discoloration to arms and legs . skin intact Current %PO Good (75-100%) Estimated Nutritional Goals BEE in Kcals: Using Current wt Calories/Kcals/Kg 23-27 Kcals Calculated 0334-8030 Protein: Using Current wt Protein g/k.8-1 Protein Calculated 56-70 Fluid: ml 1610-1890ml (1ml/kcal) Nutritional Problem No current Nutrition Prob Problem N/A Malnutrition Alert Is there a minimum of two criteria No selected? Query Text:Check all the applicable criteria. A minimum of two criteria are recommended for diagnosis of either severe or non-severe malnutrition. Malnutrition Related to Morbid Obesity Malnutrition related to morbid obesity No Intervention/Recommendation Comments 1. Continue with current diet as ordered. 2. Monitor PO intake, wt, labs and skin integrity 3. F/U as low risk in 7 days, 12/17 Expected Outcomes/Goals Expected Outcomes/Goals 1. PO intake to meet at least 75% of nutritional needs. 2. Wt stability, skin to remain intact, labs to approach WNL.
[2017-12-17] MEDS: Hydrocodone/APAP 10 mg/325 mg Tab PO PRN (19:47)
--- NOTE | 2017-12-18 00:21 | Progress Notes ---
DATE: 12/17/2017 PSYCHIATRIC PROGRESS NOTE SUBJECTIVE: Staff was spoken to. The patient is interviewed. Mood is noted to be irritable. Affect is constricted. The patient has been very agitated, screaming and yelling. The patient has to be given a dose of Haldol. The patient refused to take the medication by mouth and the patient has to be given by injection. ASSESSMENT: The patient is still impulsive and paranoid. PLAN: To continue the patient with the supportive therapy and followup. JOB# [id number]
[2017-12-18] MEDS: Levothyroxine 0.05 Mg Tab PO SCH (06:39)
[2017-12-18] MEDS: Lactulose 10 Gm/15 mL 30mL UDC PO SCH (08:44)
[2017-12-18] MEDS: Multivitamin Tab PO SCH (08:45)
[2017-12-18] MEDS: NIFEdipine 30 mg ER Tab PO SCH (08:45)
[2017-12-18] MEDS: NYSTATIN 100000 UNITS/GM POWD TP SCH ×2 (08:46→16:28)
[2017-12-18] MEDS: Hydrocodone/APAP 10 mg/325 mg Tab PO PRN ×2 (08:47→19:53)
--- NOTE | 2017-12-18 12:43 | Internal Medicine Prog Note ---
Internal Medicine Subjective - Subjective Patient seen and examined:: with staff, chart reviewed Patient is:: awake, verbal, interactive, agitated, confused Per staff patient has:: no adverse event, poor appetite, noncompliant, tolerating meds Internal Medicine Objective - Results Recent Labs: Laboratory Last Values POC Glucose 130 MG/DL (70 - 105) H 12/06/17 23:03 - Physical Exam Vitals and I&O: Vital Signs Temp 98.4 F 12/18/17 06:30 Pulse 77 12/18/17 08:45 Resp 20 12/18/17 06:30 BP 115/67 12/18/17 08:45 Pulse Ox 96 12/18/17 06:30 Intake & Output 12/17/17 12/18/17 12/18/17 18:59 06:59 18:59 Intake Total 120 Balance 120 Intake: Oral 120 Other: # Voids 3 # Bowel Movements 0 Active Medications: Current Medications Acetaminophen (Tylenol) 650 mg PO Q4HR PRN PRN Reason: Mild Pain / Temp above 100 Stop: 02/05/18 13:06 Acetaminophen/Hydrocodone Bitart ([place] 10 Mg/325 Mg) 1 tab PO Q6H PRN PRN Reason: MOD-SEV pain (level 4-10) Stop: 02/05/18 00:33 Last Admin: 12/18/17 08:47 Dose: 1 tab Al Hydrox/Mg Hydrox/Simethicone (Maalox) 30 ml PO Q4HR PRN PRN Reason: GI DISTRESS Stop: 02/05/18 00:04 Albuterol/Ipratropium (Duoneb Neb) 3 ml HHN Q4HRT PRN PRN Reason: Wheezing Stop: 02/05/18 13:06 Aspirin (Ecotrin) 81 mg PO DAILY [facility] Stop: 02/05/18 08:59 Last Admin: 12/18/17 08:44 Dose: 81 mg Duloxetine HCl (Cymbalta) 60 mg PO DAILY [facility]; Protocol Stop: 02/06/18 08:59 Last Admin: 12/18/17 08:48 Dose: 60 mg Famotidine (Pepcid) 20 mg PO BID [facility] Stop: 02/05/18 16:59 Last Admin: 12/18/17 08:44 Dose: 20 mg Gabapentin (Neurontin) 600 mg PO Q8H [facility] Stop: 02/05/18 20:59 Last Admin: 12/18/17 05:10 Dose: 600 mg Haloperidol Lactate (Haldol) 5 mg IM NOW PRN PRN Reason: Agitation Stop: 02/06/18 07:55 Last Admin: 12/12/17 15:12 Dose: 5 mg Hydrocortisone (Hydrocortisone 1%) 1 appl TP BID [facility] Stop: 02/05/18 16:59 Last Admin: 12/18/17 08:44 Dose: Not Given Lactulose (Cephulac) 20 gm PO DAILY [facility] Stop: 02/05/18 08:59 Last Admin: 12/18/17 08:44 Dose: 20 gm Lamotrigine (Lamictal) 200 mg PO BID [facility]; Protocol Stop: 02/05/18 16:59 Last Admin: 12/18/17 08:44 Dose: 200 mg Levothyroxine Sodium (Synthroid) 0.05 mg PO QDAC [facility] Stop: 02/05/18 07:29 Last Admin: 12/18/17 06:39 Dose: 0.05 mg Lorazepam (Ativan) 0.5 mg PO Q6HR PRN; Protocol PRN Reason: Anxiety Stop: 02/05/18 13:06 Last Admin: 12/18/17 08:46 Dose: 0.5 mg Magnesium Hydroxide (Milk Of Magnesia) 30 ml PO HS PRN PRN Reason: Constipation Multivitamins/Vitamin C (Theragran) 1 tab PO DAILY [facility] Stop: 02/05/18 08:59 Last Admin: 12/18/17 08:45 Dose: 1 tab Nifedipine (Procardia Xl) 30 mg PO DAILY [facility] Stop: 02/05/18 08:59 Last Admin: 12/18/17 08:45 Dose: 30 mg Nystatin (Nystop) 100 units TP BID [facility] Stop: 02/05/18 16:59 Last Admin: 12/18/17 08:46 Dose: Not Given Prednisone (Deltasone) 10 mg PO DAILY [facility] Stop: 02/08/18 08:59 Last Admin: 12/18/17 08:46 Dose: 10 mg Quetiapine Fumarate (Seroquel) 200 mg PO HS [facility]; Protocol Stop: 02/05/18 20:59 Last Admin: 12/17/17 21:18 Dose: 200 mg Quetiapine Fumarate (Seroquel) 200 mg PO DAILY [facility]; Protocol Stop: 02/07/18 08:59 Last Admin: 12/18/17 08:47 Dose: 200 mg Simvastatin (Zocor) 20 mg PO HS [facility]; Protocol Stop: 02/05/18 20:59 Last Admin: 12/17/17 21:18 Dose: 20 mg Zolpidem Tartrate (Ambien) 5 mg PO HS PRN PRN Reason: Insomnia Stop: 02/05/18 13:06 Last Admin: 12/15/17 23:07 Dose: 5 mg General: demented HEENT: NC/AT, PERRLA, poor dentition Neck: Supple, No JVD, No LAD Lungs: CTAB Cardiovascular: RRR, Normal S1, Normal S2 Abdomen: soft, non-tender, globular, positive bowel sound Extremities: excoriation Neurological: no change, disorganized Internal Medicine Assmt/Plan - Assessment Assessment: ASSESSMENT AND PLAN: 1. Chronic obstructive pulmonary disease. 2. History of stroke. 3. Hypertension. 4. Hypothyroidism. 5. Obesity. 6. Diabetes. 7. Right upper extremity abrasion and skin tear. PLAN: We will continue the patient with wound care. The patient also on bronchodilator treatments. We will titrate the patient's antihypertensive medication. Continue Synthroid. Continue with current course and continue the following. - Plan Plan: as above wound care per protocol Nutritional Asmnt/Malnutr-PDOC - Dietary Evaluation Malnutrition Findings (Please click <Entered> for more info): Nutritional Asmnt/Malnutrition Start: 12/10/17 13: 46 Text: Status: Complete Freq: Protocol: Document 12/10/17 13:46 LCHENG (Rec: 12/10/17 13:57 LCHENG [email or web address]) Nutritional Asmnt/Malnutrition Patient General Information Nutritional Screening Moderate Risk Diagnosis psychosis Pertinent Medical Hx/Surgical Hx COPD, HTN, hypothyroidism, DM, bipolar Subjective Information Pt seen having lunch in dining room, requesting chicken salad instead of the lunch she got. Pt always complained about food per CLINICAL EXERCISE SPECIALIST. Per EMR, PO intake 100%. Current Diet Order/ Nutrition Support cardiac Pertinent Medications synthorid, theragran, seroquel Pertinent Labs 12/06 POC 130 Nutritional Hx/Data Height 1.57 m Height (Calculated Centimeters) 157.5 Current Weight (lbs) 70.307 kg Weight (Calculated Kilograms) 70.3 Weight (Calculated Grams) 50472.8 [place] Body Weight 110 Body Mass Index (BMI) 28.3 Weight Status Overweight GI Symptoms GI Symptoms None Last BM 12/08 Difficult in: None Skin Integrity/Comment: discoloration to arms and legs . skin intact Current %PO Good (75-100%) Estimated Nutritional Goals BEE in Kcals: Using Current wt Calories/Kcals/Kg 23-27 Kcals Calculated 6232-2749 Protein: Using Current wt Protein g/k.8-1 Protein Calculated 56-70 Fluid: ml 1610-1890ml (1ml/kcal) Nutritional Problem No current Nutrition Prob Problem N/A Malnutrition Alert Is there a minimum of two criteria No selected? Query Text:Check all the applicable criteria. A minimum of two criteria are recommended for diagnosis of either severe or non-severe malnutrition. Malnutrition Related to Morbid Obesity Malnutrition related to morbid obesity No Intervention/Recommendation Comments 1. Continue with current diet as ordered. 2. Monitor PO intake, wt, labs and skin integrity 3. F/U as low risk in 7 days, 12/17 Expected Outcomes/Goals Expected Outcomes/Goals 1. PO intake to meet at least 75% of nutritional needs. 2. Wt stability, skin to remain intact, labs to approach WNL.
--- NOTE | 2017-12-18 23:22 | Progress Notes ---
DATE: 12/18/2017 PSYCHIATRIC PROGRESS NOTE SUBJECTIVE: Staff was spoken to. The patient is interviewed. Mood is noted to be irritable. Affect is constricted. The patient is getting paranoid. The patient is stating that someone was trying to strangle her last night. The patient has no insight. Coping skills are noted to be still poor. No side effects to the medications are noted. ASSESSMENT: The patient is still paranoid. PLAN: To continue the patient with the supportive therapy and followup. [facility]# [id number]
[2017-12-19] MEDS: Hydrocodone/APAP 10 mg/325 mg Tab PO PRN ×3 (06:45→20:17)
[2017-12-19] MEDS: Levothyroxine 0.05 Mg Tab PO SCH (06:45)
[2017-12-19] MEDS: Lactulose 10 Gm/15 mL 30mL UDC PO SCH (08:22)
[2017-12-19] MEDS: NIFEdipine 30 mg ER Tab PO SCH (08:23)
[2017-12-19] MEDS: Multivitamin Tab PO SCH (08:23)
[2017-12-19] MEDS: NYSTATIN 100000 UNITS/GM POWD TP SCH ×2 (08:23→16:51)
--- NOTE | 2017-12-19 13:58 | Internal Medicine Prog Note ---
Internal Medicine Subjective - Subjective Service Date: 12/19/17 Patient is:: awake, verbal, interactive, agitated, confused Per staff patient has:: no adverse event, poor appetite, noncompliant, tolerating meds Internal Medicine Objective - Results Recent Labs: Laboratory Last Values POC Glucose 130 MG/DL (70 - 105) H 12/06/17 23:03 - Physical Exam Vitals and I&O: Vital Signs Temp 99.4 F 12/19/17 06:18 Pulse 90 12/19/17 08:23 Resp 20 12/19/17 06:18 BP 144/83 12/19/17 08:23 Pulse Ox 95 12/19/17 06:18 Intake & Output 12/18/17 12/19/17 12/19/17 18:59 06:59 18:59 Intake Total 1000 240 Balance 1000 240 Intake: Oral 1000 240 Other: # Voids 3 1 # Bowel Movements 1 0 Active Medications: Current Medications Acetaminophen (Tylenol) 650 mg PO Q4HR PRN PRN Reason: Mild Pain / Temp above 100 Stop: 02/05/18 13:06 Acetaminophen/Hydrocodone Bitart ([place] 10 Mg/325 Mg) 1 tab PO Q6H PRN PRN Reason: MOD-SEV pain (level 4-10) Stop: 02/05/18 00:33 Last Admin: 12/19/17 13:20 Dose: 1 tab Al Hydrox/Mg Hydrox/Simethicone (Maalox) 30 ml PO Q4HR PRN PRN Reason: GI DISTRESS Stop: 02/05/18 00:04 Albuterol/Ipratropium (Duoneb Neb) 3 ml HHN Q4HRT PRN PRN Reason: Wheezing Stop: 02/05/18 13:06 Aspirin (Ecotrin) 81 mg PO DAILY [facility] Stop: 02/05/18 08:59 Last Admin: 12/19/17 08:22 Dose: 81 mg Duloxetine HCl (Cymbalta) 60 mg PO DAILY [facility]; Protocol Stop: 02/06/18 08:59 Last Admin: 12/19/17 08:22 Dose: 60 mg Famotidine (Pepcid) 20 mg PO BID [facility] Stop: 02/05/18 16:59 Last Admin: 12/19/17 08:22 Dose: 20 mg Gabapentin (Neurontin) 600 mg PO Q8H [facility] Stop: 02/05/18 20:59 Last Admin: 12/19/17 12:47 Dose: 600 mg Haloperidol Lactate (Haldol) 5 mg IM NOW PRN PRN Reason: Agitation Stop: 02/06/18 07:55 Last Admin: 12/12/17 15:12 Dose: 5 mg Hydrocortisone (Hydrocortisone 1%) 1 appl TP BID [facility] Stop: 02/05/18 16:59 Last Admin: 12/19/17 08:22 Dose: Not Given Lactulose (Cephulac) 20 gm PO DAILY [facility] Stop: 02/05/18 08:59 Last Admin: 12/19/17 08:22 Dose: 20 gm Lamotrigine (Lamictal) 200 mg PO BID [facility]; Protocol Stop: 02/05/18 16:59 Last Admin: 12/19/17 08:22 Dose: 200 mg Levothyroxine Sodium (Synthroid) 0.05 mg PO QDAC [facility] Stop: 02/05/18 07:29 Last Admin: 12/19/17 06:45 Dose: 0.05 mg Lorazepam (Ativan) 0.5 mg PO Q6HR PRN; Protocol PRN Reason: Anxiety Stop: 02/05/18 13:06 Last Admin: 12/18/17 08:46 Dose: 0.5 mg Magnesium Hydroxide (Milk Of Magnesia) 30 ml PO HS PRN PRN Reason: Constipation Multivitamins/Vitamin C (Theragran) 1 tab PO DAILY [facility] Stop: 02/05/18 08:59 Last Admin: 12/19/17 08:23 Dose: 1 tab Nifedipine (Procardia Xl) 30 mg PO DAILY [facility] Stop: 02/05/18 08:59 Last Admin: 12/19/17 08:23 Dose: 30 mg Nystatin (Nystop) 100 units TP BID [facility] Stop: 02/05/18 16:59 Last Admin: 12/19/17 08:23 Dose: Not Given Prednisone (Deltasone) 10 mg PO DAILY [facility] Stop: 02/08/18 08:59 Last Admin: 12/19/17 08:23 Dose: 10 mg Quetiapine Fumarate (Seroquel) 200 mg PO HS [facility]; Protocol Stop: 02/05/18 20:59 Last Admin: 12/18/17 21:28 Dose: 200 mg Quetiapine Fumarate (Seroquel) 200 mg PO DAILY [facility]; Protocol Stop: 02/07/18 08:59 Last Admin: 12/19/17 08:24 Dose: 200 mg Simvastatin (Zocor) 20 mg PO HS [facility]; Protocol Stop: 02/05/18 20:59 Last Admin: 12/18/17 21:28 Dose: 20 mg Zolpidem Tartrate (Ambien) 5 mg PO HS PRN PRN Reason: Insomnia Stop: 02/05/18 13:06 Last Admin: 12/15/17 23:07 Dose: 5 mg General: demented HEENT: NC/AT, PERRLA, poor dentition Neck: Supple, No JVD, No LAD Lungs: CTAB Cardiovascular: RRR, Normal S1, Normal S2 Abdomen: soft, non-tender, globular, positive bowel sound Extremities: excoriation Neurological: no change, disorganized Internal Medicine Assmt/Plan - Assessment Assessment: ASSESSMENT AND PLAN: 1. Chronic obstructive pulmonary disease. 2. History of stroke. 3. Hypertension. 4. Hypothyroidism. 5. Obesity. 6. Diabetes. 7. Right upper extremity abrasion and skin tear. - Plan Plan: wound care fall precautions continue current plan of care Nutritional Asmnt/Malnutr-PDOC - Dietary Evaluation Malnutrition Findings (Please click <Entered> for more info): Nutritional Asmnt/Malnutrition Start: 12/10/17 13: 46 Text: Status: Complete Freq: Protocol: Document 12/10/17 13:46 LCHENG (Rec: 12/10/17 13:57 LCHENG [email or web address]) Nutritional Asmnt/Malnutrition Patient General Information Nutritional Screening Moderate Risk Diagnosis psychosis Pertinent Medical Hx/Surgical Hx COPD, HTN, hypothyroidism, DM, bipolar Subjective Information Pt seen having lunch in dining room, requesting chicken salad instead of the lunch she got. Pt always complained about food per TAR DISTRIBUTOR OPERATOR. Per EMR, PO intake 100%. Current Diet Order/ Nutrition Support cardiac Pertinent Medications synthorid, theragran, seroquel Pertinent Labs 12/06 POC 130 Nutritional Hx/Data Height 5 ft 2 in Height (Calculated Centimeters) 157.5 Current Weight (lbs) 155 lb Weight (Calculated Kilograms) 70.3 Weight (Calculated Grams) 92433.8 [place] Body Weight 110 Body Mass Index (BMI) 28.3 Weight Status Overweight GI Symptoms GI Symptoms None Last BM 12/08 Difficult in: None Skin Integrity/Comment: discoloration to arms and legs . skin intact Current %PO Good (75-100%) Estimated Nutritional Goals BEE in Kcals: Using Current wt Calories/Kcals/Kg 23-27 Kcals Calculated 4386-9842 Protein: Using Current wt Protein g/k.8-1 Protein Calculated 56-70 Fluid: ml 1610-1890ml (1ml/kcal) Nutritional Problem No current Nutrition Prob Problem N/A Malnutrition Alert Is there a minimum of two criteria No selected? Query Text:Check all the applicable criteria. A minimum of two criteria are recommended for diagnosis of either severe or non-severe malnutrition. Malnutrition Related to Morbid Obesity Malnutrition related to morbid obesity No Intervention/Recommendation Comments 1. Continue with current diet as ordered. 2. Monitor PO intake, wt, labs and skin integrity 3. F/U as low risk in 7 days, 12/17 Expected Outcomes/Goals Expected Outcomes/Goals 1. PO intake to meet at least 75% of nutritional needs. 2. Wt stability, skin to remain intact, labs to approach WNL.
--- NOTE | 2017-12-20 00:36 | Progress Notes ---
DATE: 12/19/2017 PSYCHIATRIC PROGRESS NOTE SUBJECTIVE: Staff was spoken to. The patient is interviewed. Mood is noted to be less irritable. Affect is appropriate. The patient is stating that she has been having problem with the sleep and she wants Ambien. Coping skills at this time are noted to be still impaired. No side effects to the medications are noted, although the patient's aggressive behavior seems to have been coming down. ASSESSMENT: The patient's psychosis is resolving. PLAN: To continue the patient with the current medications. I encouraged the patient to verbalize the concern. The patient is going to be showing her response tomorrow, possibly the patient is going to be discharged for followup on outpatient basis. [facility]# [id number]
[2017-12-20] MEDS: Levothyroxine 0.05 Mg Tab PO SCH (06:43)
[2017-12-20] MEDS: Multivitamin Tab PO SCH (08:57)
[2017-12-20] MEDS: Lactulose 10 Gm/15 mL 30mL UDC PO SCH (08:57)
[2017-12-20] MEDS: NIFEdipine 30 mg ER Tab PO SCH (08:57)
[2017-12-20] MEDS: NYSTATIN 100000 UNITS/GM POWD TP SCH (08:58)
[2017-12-20] MEDS: Hydrocodone/APAP 10 mg/325 mg Tab PO PRN (09:31)
--- NOTE | 2017-12-20 12:20 | Progress Notes ---
DATE: 12/20/2017 SUBJECTIVE: Staff was spoken to. The patient is interviewed. Mood is noted to be anxious. Affect is appropriate. Not suicidal or homicidal. Insight and judgment are fair. Impulse control is also noted to be fair. The patient has been able to participate in the groups and verbalize the concerns. Paranoia has been subsiding. ASSESSMENT: The patient is stabilizing. PLAN: To discharge the patient today for followup on outpatient basis. JOB# [id number]
--- NOTE | 2017-12-20 14:00 | Internal Medicine Prog Note ---
Internal Medicine Subjective - Subjective Service Date: 12/20/17 Patient is:: awake, verbal, interactive, agitated, confused Per staff patient has:: no adverse event, poor appetite, noncompliant, tolerating meds Internal Medicine Objective - Results Recent Labs: Laboratory Last Values POC Glucose 130 MG/DL (70 - 105) H 12/06/17 23:03 - Physical Exam Vitals and I&O: Vital Signs Temp 98.4 F 12/20/17 06:21 Pulse 86 12/20/17 08:57 Resp 18 12/20/17 07:15 BP 145/80 12/20/17 08:57 Pulse Ox 95 12/20/17 07:15 Intake & Output 12/19/17 12/20/17 12/20/17 18:59 06:59 18:59 Intake Total 2800 120 Balance 2800 120 Intake: Oral 2800 120 Other: # Voids 5 3 # Bowel Movements 1 Active Medications: Current Medications Acetaminophen (Tylenol) 650 mg PO Q4HR PRN PRN Reason: Mild Pain / Temp above 100 Stop: 02/05/18 13:06 Acetaminophen/Hydrocodone Bitart (Conception 10 Mg/325 Mg) 1 tab PO Q6H PRN PRN Reason: MOD-SEV pain (level 4-10) Stop: 02/05/18 00:33 Last Admin: 12/20/17 09:31 Dose: 1 tab Al Hydrox/Mg Hydrox/Simethicone (Maalox) 30 ml PO Q4HR PRN PRN Reason: GI DISTRESS Stop: 02/05/18 00:04 Albuterol/Ipratropium (Duoneb Neb) 3 ml HHN Q4HRT PRN PRN Reason: Wheezing Stop: 02/05/18 13:06 Aspirin (Ecotrin) 81 mg PO DAILY [facility] Stop: 02/05/18 08:59 Last Admin: 12/20/17 08:57 Dose: 81 mg Duloxetine HCl (Cymbalta) 60 mg PO DAILY [facility]; Protocol Stop: 02/06/18 08:59 Last Admin: 12/20/17 08:57 Dose: 60 mg Famotidine (Pepcid) 20 mg PO BID [facility] Stop: 02/05/18 16:59 Last Admin: 12/20/17 08:57 Dose: 20 mg Gabapentin (Neurontin) 600 mg PO Q8H [facility] Stop: 02/05/18 20:59 Last Admin: 12/20/17 13:21 Dose: 600 mg Haloperidol Lactate (Haldol) 5 mg IM NOW PRN PRN Reason: Agitation Stop: 02/06/18 07:55 Last Admin: 12/12/17 15:12 Dose: 5 mg Hydrocortisone (Hydrocortisone 1%) 1 appl TP BID [facility] Stop: 02/05/18 16:59 Last Admin: 12/20/17 08:57 Dose: Not Given Lactulose (Cephulac) 20 gm PO DAILY [facility] Stop: 02/05/18 08:59 Last Admin: 12/20/17 08:57 Dose: 20 gm Lamotrigine (Lamictal) 200 mg PO BID [facility]; Protocol Stop: 02/05/18 16:59 Last Admin: 12/20/17 08:57 Dose: 200 mg Levothyroxine Sodium (Synthroid) 0.05 mg PO QDAC [facility] Stop: 02/05/18 07:29 Last Admin: 12/20/17 06:43 Dose: 0.05 mg Lorazepam (Ativan) 0.5 mg PO Q6HR PRN; Protocol PRN Reason: Anxiety Stop: 02/05/18 13:06 Last Admin: 12/18/17 08:46 Dose: 0.5 mg Magnesium Hydroxide (Milk Of Magnesia) 30 ml PO HS PRN PRN Reason: Constipation Multivitamins/Vitamin C (Theragran) 1 tab PO DAILY [facility] Stop: 02/05/18 08:59 Last Admin: 12/20/17 08:57 Dose: 1 tab Nifedipine (Procardia Xl) 30 mg PO DAILY [facility] Stop: 02/05/18 08:59 Last Admin: 12/20/17 08:57 Dose: 30 mg Nystatin (Nystop) 100 units TP BID [facility] Stop: 02/05/18 16:59 Last Admin: 12/20/17 08:58 Dose: Not Given Prednisone (Deltasone) 10 mg PO DAILY [facility] Stop: 02/08/18 08:59 Last Admin: 12/20/17 08:58 Dose: 10 mg Quetiapine Fumarate (Seroquel) 200 mg PO HS [facility]; Protocol Stop: 02/05/18 20:59 Last Admin: 12/19/17 21:47 Dose: 200 mg Quetiapine Fumarate (Seroquel) 200 mg PO DAILY [facility]; Protocol Stop: 02/07/18 08:59 Last Admin: 12/20/17 08:58 Dose: 200 mg Simvastatin (Zocor) 20 mg PO HS [facility]ACQUELINE; Protocol Stop: 02/05/18 20:59 Last Admin: 12/19/17 21:47 Dose: 20 mg Zolpidem Tartrate (Ambien) 5 mg PO HS PRN PRN Reason: Insomnia Stop: 02/05/18 13:06 Last Admin: 12/15/17 23:07 Dose: 5 mg General: demented HEENT: NC/AT, PERRLA, poor dentition Neck: Supple, No JVD, No LAD Lungs: CTAB Cardiovascular: RRR, Normal S1, Normal S2 Abdomen: soft, non-tender, globular, positive bowel sound Extremities: excoriation Neurological: no change, disorganized Internal Medicine Assmt/Plan - Assessment Assessment: ASSESSMENT AND PLAN: 1. Chronic obstructive pulmonary disease. 2. History of stroke. 3. Hypertension. 4. Hypothyroidism. 5. Obesity. 6. Diabetes. 7. Right upper extremity abrasion and skin tear. - Plan Plan: wound care fall precautions continue current plan of care Nutritional Asmnt/Malnutr-PDOC - Dietary Evaluation Malnutrition Findings (Please click <Entered> for more info): Nutritional Asmnt/Malnutrition Start: 12/10/17 13: 46 Text: Status: Complete Freq: Protocol: Document 12/10/17 13:46 LCHENG (Rec: 12/10/17 13:57 [email or web address] [email or web address]) Nutritional Asmnt/Malnutrition Patient General Information Nutritional Screening Moderate Risk Diagnosis psychosis Pertinent Medical Hx/Surgical Hx COPD, HTN, hypothyroidism, DM, bipolar Subjective Information Pt seen having lunch in dining room, requesting chicken salad instead of the lunch she got. Pt always complained about food per [employer]. Per EMR, PO intake 100%. Current Diet Order/ Nutrition Support cardiac Pertinent Medications synthorid, theragran, seroquel Pertinent Labs 12/06 POC 130 Nutritional Hx/Data Height 5 ft 2 in Height (Calculated Centimeters) 157.5 Current Weight (lbs) 155 lb Weight (Calculated Kilograms) 70.3 Weight (Calculated Grams) 37669.8 [place] Body Weight 110 Body Mass Index (BMI) 28.3 Weight Status Overweight GI Symptoms GI Symptoms None Last BM 8/18 Difficult in: None Skin Integrity/Comment: discoloration to arms and legs . skin intact Current %PO Good (75-100%) Estimated Nutritional Goals BEE in Kcals: Using Current wt Calories/Kcals/Kg 23-27 Kcals Calculated 4299-0461 Protein: Using Current wt Protein g/k.8-1 Protein Calculated 56-70 Fluid: ml 1610-1890ml (1ml/kcal) Nutritional Problem No current Nutrition Prob Problem N/A Malnutrition Alert Is there a minimum of two criteria No selected? Query Text:Check all the applicable criteria. A minimum of two criteria are recommended for diagnosis of either severe or non-severe malnutrition. Malnutrition Related to Morbid Obesity Malnutrition related to morbid obesity No Intervention/Recommendation Comments 1. Continue with current diet as ordered. 2. Monitor PO intake, wt, labs and skin integrity 3. F/U as low risk in 7 days, 12/17 Expected Outcomes/Goals Expected Outcomes/Goals 1. PO intake to meet at least 75% of nutritional needs. 2. Wt stability, skin to remain intact, labs to approach WNL.
--- NOTE | 2017-12-29 14:23 | Discharge Summary ---
DATE OF DISCHARGE: 12/20/2017 IDENTIFYING DATA: The patient is a 67-year-old woman, [facility]. Information was obtained by directly interviewing the patient as well as reviewing the admission papers and they are reliable. JUSTIFICATION OF HOSPITALIZATION: The patient is admitted from [facility] for her aggressive behavior and being a danger to others. CHIEF COMPLAINT: "I do not know why they have to bring me in here." DIAGNOSES AT THE TIME OF ADMISSION: AXIS I: Bipolar disorder, mixed, with psychotic symptoms. AXIS II: None. AXIS III: As per Dr. Navarrete. HISTORY OF PRESENT ILLNESS: Please refer to the 12/07/2017 dictation done by me. Physical examination was done by Dr. Navarrete and is noted to be significant for hypothyroidism, hypertension, and peripheral neuropathy. HOSPITAL COURSE AND RESPONSE TO TREATMENT: The patient has been observed on inpatient unit, provided with supportive psychotherapy. The patient has been encouraged to participate in groups and verbalize the concerns. The patient continues to be paranoid and has been accusing the staff of doing things behind her back. The patient is stating that someone was trying to choke her son who was trying to kill her. The patient is very demanding and then very intrusive. The patient has been placed on low dose of Seroquel, which was gradually increased to 200 mg. The patient also has been placed on Lamictal and that was increased to 200 mg twice a day. With these medications, the patient has been observed, and the patient has also been placed on gabapentin. The patient was closely monitored. The patient has to be given a dose of Haldol to contain her behavior. The patient was finally discharged to [facility] and the patient is discharged on 12/20/2017 with recommendation that she is going to be seeking treatment with ____ on an outpatient basis. MENTAL STATUS EXAMINATION AT THE TIME OF DISCHARGE: The patient's mood is noted to be less irritable. Affect is appropriate. Not suicidal or homicidal. Insight and judgment at this time are noted to be improving. Impulse control is noted to be fair. Coping skills are noted to be improving. No side effects to the medications are noted at the time of discharge. CONDITION AT THE TIME OF DISCHARGE: Noted to be stable. DIAGNOSES AT THE TIME OF DISCHARGE: AXIS I: Bipolar disorder, mixed, with psychotic symptoms. AXIS II: None. AXIS III: Hypertension, arthritis, and hypothyroidism. AFTERCARE PLAN: The patient is discharged to self to be followed up on an outpatient basis. JOB# [id number]
== END 2017-12-20 15:00 | DRG 885 ==
LOC: GERO2 20:56 → GERO 12-07 10:30
PROVIDERS: ADMIT Psychiatry & Neurology Psychiatry; ATTEND Psychiatry & Neurology Psychiatry
DX: F31.64 Bipolar disorder, current episode mixed, severe, with psychotic features (principal); J44.9 Chronic obstructive pulmonary disease, unspecified; Z86.73 Personal history of transient ischemic attack (TIA), and cerebral infarction without residual deficits; I10 Essential (primary) hypertension; E03.9 Hypothyroidism, unspecified; E66.9 Obesity, unspecified; E11.9 Type 2 diabetes mellitus without complications; S40.811A Abrasion of right upper arm, initial encounter; Z68.28 Body mass index [BMI] 28.0-28.9, adult; X58.XXXA Exposure to other specified factors, initial encounter; Y93.89 Activity, other specified; Y92.89 Other specified places as the place of occurrence of the external cause; Y99.8 Other external cause status
CPT/HCPCS: 82948-90; 94760; 97530; G0410; J1200; J1630; J2060; X3904; Z7610